=== PATIENT | female | born 1965 | race Caucasian/White ===

== ENCOUNTER 2017-06-20 23:29 | Emergency (ER) | payer OTHER ==
[~2017-06-20] VITALS: Ht 160 cm; Wt 59.4 kg
[2017-06-20] MEDS ORDERED: LIPITOR20 MG PO (23:32)
[2017-06-20] MEDS ORDERED: NOVOLOG MIX 70/33 ML SC (23:32)
[2017-06-20] MEDS ORDERED: CARBATROL200 MG PO (23:32)
[2017-06-20] MEDS ORDERED: DILTIAZEM60 MG PO (23:32)
[2017-06-20] MEDS ORDERED: NEURONTIN400 MG PO (23:33)
[2017-06-20] MEDS ORDERED: CYCLOBENZAPRINE10 MG PO (23:33)
[2017-06-20] MEDS ORDERED: LISINOPRIL5 MG PO (23:34)
[2017-06-20] MEDS ORDERED: IBUPROFEN400 MG PO (23:34)
[2017-06-20] MEDS ORDERED: KEPPRA500 MG PO (23:34)
[2017-06-20] MEDS ORDERED: LANTUS SOL100 UNIT/1 SC (23:34)
[2017-06-20] MEDS ORDERED: MAGNESIUM400 M1 PO (23:35)
[2017-06-20] MEDS ORDERED: EVISTA60 MG PO (23:35)
[2017-06-20] MEDS ORDERED: OMEPRAZOLE D/R20 MG PO (23:35)
[2017-06-20] MEDS ORDERED: PROMETHAZINE25 M1 PO (23:35)
[2017-06-20] MEDS ORDERED: MULTIVITAMINS1 EAC5 PO (23:35)
[2017-06-20] MEDS ORDERED: METFORMIN500 MG PO (23:35)
[2017-06-20] MEDS ORDERED: HEARTBURN RELI150 MG PO (23:36)
[2017-06-20] MEDS ORDERED: VISTARIL50 MG PO (23:36)
[2017-06-20] MEDS ORDERED: LACTULOSE10 GM/153 PO (23:36)
[2017-06-20] MEDS ORDERED: 24 HOUR ALLERG9.9 ML NAS (23:37)
[2017-06-20] MEDS ORDERED: VITAMIN C60 MG PO (23:37)
[2017-06-20] MEDS ORDERED: VITAMIN D350000 UNIT PO (23:37)
[2017-06-20] MEDS ORDERED: ATARAX,VISTARIL50 MG PO (23:38)
[2017-06-20] MEDS ORDERED: ZOLOFT50 MG PO (23:38)
[2017-06-20] MEDS ORDERED: FLOVENT DISKUS50 MCG INH (23:38)
[2017-06-20] MEDS ORDERED: COLACE100 MG PO (23:39)
[2017-06-20] MEDS ORDERED: PANTOPRAZOLE SO40 MG PO (23:39)
[2017-06-20] MEDS ORDERED: PROAIR HFA8.5 GM INH (23:39)
[2017-06-21 00:40] LABS: BASO # 0.1 10*3/uL (0.0-0.1); BASO % 0.9 % (0.0-1.0); EOS # 0.3 10*3/uL (0.0-0.4); EOS % 2.6 % (1.0-4.0); HEMATOCRIT 40.2 % (37.0-47.0); HEMOGLOBIN 14.3 g/dl (12.0-16.0); LYMPH % 45.1 % (27.0-41.0); MEAN CELL VOLUME 88.7 fl (81.0-99.0); MEAN CORPUSCULAR HGB 31.6 pg (27.0-31.0); MEAN CORPUSCULAR HGB CONC 35.6 g/dl (33.0-37.0); MEAN PLATELET VOLUME 10.4 fl (9.6-12.3); MONO # 0.6 10*3/uL (0.1-1.0); MONO % 5.1 % (3.0-9.0); NEUT # 5.1 10*3/uL (2.3-7.9); NEUT % 46.1 % (47.0-73.0); PLATELET COUNT AUTOMATED 264 10*3/uL (130-400); RED BLOOD COUNT 4.53 10*6/uL (4.10-5.10); RED CELL DISTRI WIDTH 13.5 % (0-14.5); WHITE BLOOD COUNT 11.1 10*3/uL (4.8-10.8)
[2017-06-21 00:51] LABS: INTERNATIONAL NORM RATIO 0.9 (2.0-3.5)
[2017-06-21 00:56] LABS: ALBUMIN 3.5 gm/dl (3.1-4.5); ALKALINE PHOSPHATASE 151 U/L (45-117); BUN 13 mg/dl (7-24); CHLORIDE 102 mmol/L (98-107); CREATININE 0.75 mg/dL (0.55-1.02); POTASSIUM 3.5 mmol/L (3.5-5.1); SODIUM 136 mmol/L (136-145); TOTAL PROTEIN 6.9 gm/dL (6.4-8.2)
[2017-06-21 00:58] LABS: BILIRUBIN NEGATIVE (NEGATIVE); BLOOD NEGATIVE (NEGATIVE); CLARITY CLEAR (CLEAR); COLOR YELLOW (YELLOW); GLUCOSE 3+ (NEGATIVE); KETONE NEGATIVE (NEGATIVE); LEUKO ESTERASE NEGATIVE (NEGATIVE); NITRITE NEGATIVE (NEGATIVE); SPECIFIC GRAVITY <= 1.005 (1.005-1.030)
[2017-06-21 01:01] LABS: TROPONIN I < 0.015 ng/ml (<0.045)
[2017-06-21 01:02] LABS: EPITHELIAL CELLS 30-35
[2017-06-21 01:04] LABS: SGOT/AST 21 IU/L (3-35)
[2017-06-21 01:07] LABS: SGPT/ALT 31 U/L (12-78)
== END 2017-06-21 03:17 | disposition home or self-care (01) ==
LOC: ED 23:29
PROVIDERS: Physician Assistant
DX: R51 Headache (principal); E11.9 Type 2 diabetes mellitus without complications; F17.200 Nicotine dependence, unspecified, uncomplicated; Z79.899 Other long term (current) drug therapy; Z79.4 Long term (current) use of insulin; Z88.8 Allergy status to other drugs, medicaments and biological substances

== ENCOUNTER 2017-07-10 02:27 | Inpatient (IN) | payer OTHER ==
[~2017-07-10] VITALS: Ht 160 cm; Wt 61.5 kg
[2017-07-10] VITALS (8 sets, daily range): BP systolic 113–170; BP diastolic 63–80
[~2017-07-10 02:27] MED LIST: 24 HOUR ALLERG9.9 ML NAS; ATARAX,VISTARIL50 MG PO; CARBATROL200 MG PO; COLACE100 MG PO; CYCLOBENZAPRINE10 MG PO; DILTIAZEM60 MG PO; EVISTA60 MG PO; FLOVENT DISKUS50 MCG INH; HEARTBURN RELI150 MG PO; IBUPROFEN400 MG PO; KEPPRA500 MG PO; LACTULOSE10 GM/153 PO; LANTUS SOL100 UNIT/1 SC; LIPITOR20 MG PO; LISINOPRIL5 MG PO; MAGNESIUM400 M1 PO; METFORMIN500 MG PO; MULTIVITAMINS1 EAC5 PO; NEURONTIN400 MG PO; NOVOLOG MIX 70/33 ML SC; OMEPRAZOLE D/R20 MG PO; PANTOPRAZOLE SO40 MG PO; PROAIR HFA8.5 GM INH; PROMETHAZINE25 M1 PO; VISTARIL50 MG PO; VITAMIN C60 MG PO; VITAMIN D350000 UNIT PO; ZOLOFT50 MG PO
[2017-07-10] MEDS ORDERED: CLONAZEPAM0.5 M2 PO (02:52)
[2017-07-10] MEDS ORDERED: BUSPIRONE HCL10 MG PO (02:52)
[2017-07-10] MEDS ORDERED: ARIPIPRAZOLE15 MG PO (03:01)
[2017-07-10] MEDS ORDERED: LORAZEPAM0.5 MG PO (03:02)
[2017-07-10] MEDS ORDERED: MIRTAZAPINE15 M2 PO (03:03)
[2017-07-10] MEDS ORDERED: NORCO 5-325 TA1 EACH PO (03:04)
[2017-07-10 03:22] LABS: BASO # 0.1 10*3/uL (0.0-0.1); BASO % 0.8 % (0.0-1.0); EOS # 0.2 10*3/uL (0.0-0.4); EOS % 1.6 % (1.0-4.0); HEMATOCRIT 39.2 % (37.0-47.0); HEMOGLOBIN 13.6 g/dl (12.0-16.0); LYMPH # 4.2 10*3/uL (1.3-4.4); LYMPH % 27.5 % (27.0-41.0); MEAN CELL VOLUME 89.5 fl (81.0-99.0); MEAN CORPUSCULAR HGB 31.1 pg (27.0-31.0); MEAN CORPUSCULAR HGB CONC 34.7 g/dl (33.0-37.0); MEAN PLATELET VOLUME 10.7 fl (9.6-12.3); MONO # 0.8 10*3/uL (0.1-1.0); MONO % 4.9 % (3.0-9.0); NEUT % 64.9 % (47.0-73.0); PLATELET COUNT AUTOMATED 287 10*3/uL (130-400); RED BLOOD COUNT 4.38 10*6/uL (4.10-5.10); RED CELL DISTRI WIDTH 13.9 % (0-14.5); WHITE BLOOD COUNT 15.3 10*3/uL (4.8-10.8)
[2017-07-10 03:32] LABS: BILIRUBIN NEGATIVE (NEGATIVE); BLOOD NEGATIVE (NEGATIVE); CLARITY CLEAR (CLEAR); COLOR YELLOW (YELLOW); GLUCOSE 3+ (NEGATIVE); KETONE NEGATIVE (NEGATIVE); LEUKO ESTERASE NEGATIVE (NEGATIVE); NITRITE NEGATIVE (NEGATIVE); SPECIFIC GRAVITY <= 1.005 (1.005-1.030); UROBILINOGEN 0.2 E.U./dl (0.2-1.0)
[2017-07-10 03:45] LABS: ALBUMIN 3.5 gm/dl (3.1-4.5); ALKALINE PHOSPHATASE 159 U/L (45-117); BUN 15 mg/dl (7-24); CHLORIDE 94 mmol/L (98-107); CREATININE 1.13 mg/dL (0.55-1.02); SGOT/AST 12 IU/L (3-35); SODIUM 130 mmol/L (136-145); TOTAL PROTEIN 7.1 gm/dL (6.4-8.2)
[2017-07-10 03:58] LABS: SGPT/ALT 26 U/L (12-78)
[2017-07-10 04:02] LABS: EPITHELIAL CELLS 25-30
[2017-07-10 04:03] LABS: WBC 0-2 wbc/hpf (0-5); YEAST TRACE
[2017-07-10 05:12] LABS: ABG BASE EXCESS -4.6 mmol/L (-2.0-2.0); ABG HCO3 20.3 mmol/l (22-26); ABG O2 SATURATION 93.6 % (95-97); ARTERIAL BLOOD GAS PCO2 37.3 mmHg (35-45); ARTERIAL BLOOD GAS PH 7.35 (7.35-7.45); ARTERIAL BLOOD GAS PO2 66.9 mmHg (80-90)
[2017-07-11] VITALS: BP 99/61
[2017-07-11 07:34] LABS: BASO # 0.1 10*3/uL (0.0-0.1); EOS # 0.3 10*3/uL (0.0-0.4); EOS % 3.2 % (1.0-4.0); HEMATOCRIT 37.6 % (37.0-47.0); HEMOGLOBIN 12.5 g/dl (12.0-16.0); LYMPH # 2.9 10*3/uL (1.3-4.4); LYMPH % 35.5 % (27.0-41.0); MEAN CORPUSCULAR HGB 31.1 pg (27.0-31.0); MEAN CORPUSCULAR HGB CONC 33.2 g/dl (33.0-37.0); MEAN PLATELET VOLUME 10.4 fl (9.6-12.3); MONO # 0.4 10*3/uL (0.1-1.0); MONO % 4.5 % (3.0-9.0); NEUT # 4.6 10*3/uL (2.3-7.9); NEUT % 55.4 % (47.0-73.0); PLATELET COUNT AUTOMATED 242 10*3/uL (130-400); RED BLOOD COUNT 4.02 10*6/uL (4.10-5.10); RED CELL DISTRI WIDTH 14.6 % (0-14.5); WHITE BLOOD COUNT 8.3 10*3/uL (4.8-10.8)
[2017-07-11 07:38] LABS: MEAN CELL VOLUME 93.5 fl (81.0-99.0)
[2017-07-11 07:49] LABS: BUN 9 mg/dl (7-24); CHLORIDE 107 mmol/L (98-107); CREATININE 0.69 mg/dL (0.55-1.02); POTASSIUM 3.7 mmol/L (3.5-5.1); SODIUM 139 mmol/L (136-145)
[2017-07-11 07:53] LABS: ACT PARTIAL THROMBO TIME 21.7 SECONDS (20.8-31.5); INTERNATIONAL NORM RATIO 0.9 (2.0-3.5)
[2017-07-11 07:55] LABS: ALKALINE PHOSPHATASE 127 U/L (45-117); BUN 9 mg/dl (7-24); CHLORIDE 106 mmol/L (98-107); CHOLESTEROL 254 mg/dL (<200); HDL CHOLESTEROL 30 mg/dl (40-60); PHOSPHOROUS 2.5 mg/dL (2.5-4.9); POTASSIUM 3.6 mmol/L (3.5-5.1); SGOT/AST 32 IU/L (3-35); SGPT/ALT 36 U/L (12-78); SODIUM 138 mmol/L (136-145); TOTAL PROTEIN 6.1 gm/dL (6.4-8.2)
[2017-07-11 07:59] LABS: THYROID STIM HORMONE (HS) 0.362 uIU/ml (0.358-4.75)
[2017-07-11 08:00] VITALS: BP 114/70
[2017-07-11 08:19] LABS: TRIGLYCERIDES 1053 mg/dl (<150)
[2017-07-11 09:23] LABS: VITAMIN D, 25-HYDROXY 38.4 ng/mL (30-100)
== END 2017-07-11 11:20 | disposition left against medical advice (07) | DRG 872 ==
LOC: ED 02:27 → EDHOLD 03:52 → 5E 04:04
PROVIDERS: Emergency Medicine Emergency Medical Services; Internal Medicine Nephrology; Student in an Organized Health Care Education/Training Program
DX: A41.9 Sepsis, unspecified organism (principal); E11.40 Type 2 diabetes mellitus with diabetic neuropathy, unspecified; E87.2 Acidosis; E87.8 Other disorders of electrolyte and fluid balance, not elsewhere classified; E87.1 Hypo-osmolality and hyponatremia; F31.9 Bipolar disorder, unspecified; F41.9 Anxiety disorder, unspecified; J02.9 Acute pharyngitis, unspecified; I10 Essential (primary) hypertension; R65.20 Severe sepsis without septic shock; E11.65 Type 2 diabetes mellitus with hyperglycemia; J30.9 Allergic rhinitis, unspecified; E55.9 Vitamin D deficiency, unspecified; K21.9 Gastro-esophageal reflux disease without esophagitis; G40.909 Epilepsy, unspecified, not intractable, without status epilepticus; Z85.3 Personal history of malignant neoplasm of breast; Z79.4 Long term (current) use of insulin; Z79.51 Long term (current) use of inhaled steroids; Z79.899 Other long term (current) drug therapy; Z90.13 Acquired absence of bilateral breasts and nipples; Z90.710 Acquired absence of both cervix and uterus; Z88.8 Allergy status to other drugs, medicaments and biological substances; Z80.0 Family history of malignant neoplasm of digestive organs

== ENCOUNTER 2017-08-28 18:15 | Inpatient (IN) | payer OTHER ==
[~2017-08-28] VITALS: Ht 160 cm; Wt 60.1 kg
--- NOTE | ~2017-08-28 | EKG ---
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 Electronically Signed On 08-29-2017 18:17:23 PDT by Chris Nolasco MD CM:EKGRPT:ELECTROCARDIOGRAM REPORT 06 16 FIORDALIZA WARREN MD EPIPHANY DRAFT REPORT FIORDALIZA WARREN MD
--- NOTE | ~2017-08-28 | PR ---
[place], [place] PROGRESS NOTE [id number] UNIT #: [id number] ROOM: 427 DOCTOR: PHILIP AVERY MD BIRTHDATE: [birth year] DOS: 08/30/2017 CARDIOLOGY PROGRESS NOTE SUBJECTIVE: The patient was seen in the Cardiology Department today 08/30/2017 just prior to her stress test. She is a 51-year-old woman who has a history of cigarette abuse and breast cancer treated with mastectomy and radiation to the left chest. She presents now with atypical chest discomfort and some soreness in her left anterior chest. She was hospitalized on 08/28/2017 and denies chest pain now. Serial troponin levels have been normal. PAST MEDICAL HISTORY: Includes: 1. Type 2 diabetes mellitus. 2. Breast cancer. 3. History of radiation and chemotherapy to the chest. 4. History of gastroesophageal reflux disease. 5. History of hypertension. 6. History of cigarette abuse. FAMILY HISTORY: Positive for heart disease in her father who she states had heart disease at a young age. Her mother of cancer. REVIEW OF SYSTEMS: The patient denies diplopia or loss of vision. She denies shortness of breath at rest, but does have some dyspnea on exertion. She denies nausea or vomiting. Denies focal weakness. She denies hemoptysis or hematemesis. She denies change in bowel or bladder habits. She does state that her anterior chest is sore, but this is a different sensation than what she has been experiencing lately. She denies any blood in her stools or urine. She denies any heat or cold intolerance. She denies any peripheral edema. She denies any skin rashes. The remainder of review of systems is negative except as noted above. SOCIAL HISTORY: The patient is a smoker. PHYSICAL EXAMINATION: GENERAL: The patient is a slender white female who is awake, alert, and oriented. VITAL SIGNS: Pulse is 73 and regular, blood pressure is 122/65. She is afebrile. NECK: Supple. She has no jugular distention. Carotids are full. I heard no bruits. She has no neck or supraclavicular masses and no thyromegaly. LUNGS: Respirations are unlabored. Her chest is clear to auscultation and percussion. She has no presacral edema or chest wall tenderness. HEART: Has a regular rhythm. She has a fourth heart sound, but no third heart sound. The PMI is not displaced. ABDOMEN: Benign. EXTREMITIES: Showed no edema. IMPRESSION: 1. Atypical chest discomfort. [place], [place] PROGRESS NOTE NAME: GALINA PEÑA UNIT #: [id number] ROOM: 427 DOCTOR: PHILIP AVERY MD BIRTHDATE: [birth year] 2. History of type 2 diabetes mellitus. 3. History of hypertension. 4. History of breast cancer treated with radiation therapy to the left chest along with chemotherapy and mastectomy. PLAN: Thus far, the patient shows no signs of acute coronary syndrome, but she does have chest pain and multiple risk factors. We will proceed with an exercise stress test. Further recommendations will depend upon the results of the stress test. We thank the hospitalist physicians for asking our advice regarding her care. PHILIP AVERY MD CM:PNTRANS [id number] PHILIP AVERY MD 08/31/17 0014 interface
--- NOTE | ~2017-08-28 | EKG ---
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
--- NOTE | ~2017-08-28 | EKG ---
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
--- NOTE | ~2017-08-28 | CON ---
[place], [place] REPORT OF CONSULTATION NAME: GALINA PEÑA UNIT #: [id number] ROOM: 427 DOCTOR: CARLITOS DOMINGUEZ MD BIRTHDATE: [birth year] DOS: 08/29/2017 CARDIOLOGY CONSULTATION REASON FOR CONSULTATION: Chest pain. CLINICAL HISTORY: The patient is a 51-year-old patient with history of hypertension, diabetes type 2, who presented to Emergency Room for chest pain. She was noted to have the chest pain since . There is intermittent grabbing type of pain in the midsternal area as well as left-side of the chest. Pain did radiate down her left arm. This pain is worse with exertion and relieves with rest. Pain lasts for about 4-5 minutes. She did have some associated shortness of breath and heart racing. She was also complaining of some left arm and hand numbness and tingling occasionally. No cough or hemoptysis. No fever and chills. No nausea, vomiting, or diarrhea. No PND or orthopnea. No headaches. No bladder or bowel symptoms. In the Emergency Room, she had a chest CTA, was negative for any pulmonary emboli, but she noted to have some coronary calcifications. She did have history of breast cancer with bilateral mastectomy. She was admitted to the hospital and Cardiology was consulted for further recommendations. During her hospitalization, she was noted to have sinus tachycardia and treated with Cardizem. REVIEW OF SYSTEMS: Review of the 10 systems negative except as described above. PAST MEDICAL HISTORY: 1. Hypertension. 2. Diabetes type 2. 3. Dyslipidemia. 4. History of breast cancer. 5. Bipolar disorder. 6. Anxiety and depression. SURGICAL HISTORY: History of bilateral mastectomies. ALLERGIES: Reviewed. HOME MEDICATIONS: Reviewed. SOCIAL HISTORY: The patient does not smoke or drink, does not use illicit drugs. PHYSICAL EXAMINATION: VITAL SIGNS: Blood pressure 107/67, pulse 79, and respiratory rate 20, weight 60.1 kilos, BMI 23. GENERAL: Alert, comfortable, in no acute distress. HEAD AND NECK: Neck is supple, no distended neck veins, no carotid bruit. CHEST: Nontender. LUNGS: A few scattered rhonchi, but good air entry bilaterally. HEART: Regular rhythm, no S3. Grade 1/6 systolic murmur. ABDOMEN: Benign, nontender. Bowel sounds normal. [place], [place] REPORT OF CONSULTATION NAME: GALINA PEÑA UNIT #: [id number] ROOM: 427 DOCTOR: ANGELICA FRANCOIS,CARLITOS BIRTHDATE: [birth year] EXTREMITIES: Showed no edema. Distal pulses are palpable. SKIN: Warm and dry. No cyanosis, no clubbing. RECTAL: Deferred. GENITOURINARY: Deferred. REVIEW OF THE DIAGNOSTIC TESTS: The patient had several EKGs. The initial EKG showed sinus rhythm, but there is some ST elevation noted in the anterolateral leads. Second EKG showed sinus rhythm with inferior nonspecific ST changes. Third EKG showed sinus tachycardia with prolonged QT interval. The cardiac troponins are negative x 2. TSH is normal. Hemoglobin 13.4, platelets 324,000, white count 13.1 thousand. Potassium 3.5, BUN 15, and creatinine 0.73. Her triglycerides are 1053, total cholesterol 254. IMPRESSION: 1. Chest pain, myocardial infarction ruled out. 2. Sinus tachycardia, resolved. 3. History of hypertension, currently pressures are borderline low. 4. Tobacco use. The patient counseled to quit smoking. 5. Anxiety and depression. 6. Dyslipidemia. 7. Diabetes. RECOMMENDATIONS: 1. The patient denies any chest pains. 2. Continue aspirin. 3. If the blood pressure tolerates, I would recommend add beta blockers. 4. Lexiscan stress test was scheduled for tomorrow. 5. I will check 2D echo for LV function and valvular function. 6. Her thyroid function tests are normal. Continue to monitor for any tachyarrhythmias. 7. The low cholesterol and low carb diet was discussed and she would benefit from aggressive lipid-lowering therapy. 8. There is no family at bedside at the time of my examination. CARLITOS DOMINGUEZ MD CM:CONSTR:REPORT OF CONSULTATION 00 08/30/172046 interface
[~2017-08-28 18:15] MED LIST changes: +ARIPIPRAZOLE15 MG PO; +BUSPIRONE HCL10 MG PO; +CLONAZEPAM0.5 M2 PO; +LORAZEPAM0.5 MG PO; +MIRTAZAPINE15 M2 PO; +NORCO 5-325 TA1 EACH PO
[2017-08-28 18:21] VITALS: BP 147/98
[2017-08-28] MEDS ORDERED: CARBAMAZEPINE200 M2 PO (18:30)
[2017-08-28] MEDS ORDERED: LIPITOR20 MG PO (18:30)
[2017-08-28] MEDS ORDERED: DILTIAZEM60 MG PO (18:31)
[2017-08-28] MEDS ORDERED: NEURONTIN800 MG PO (18:31)
[2017-08-28] MEDS ORDERED: CYCLOBENZAPRINE10 MG PO (18:31)
[2017-08-28] MEDS ORDERED: LANTUS SOL100 UNIT/1 SQ (18:32)
[2017-08-28] MEDS ORDERED: LEVETIRACETAM500 MG PO (18:32)
[2017-08-28] MEDS ORDERED: ZESTRIL,PRINIVIL5 MG PO (18:32)
[2017-08-28] MEDS ORDERED: MAGNESIUM250 M1 PO (18:32)
[2017-08-28] MEDS ORDERED: GLUCOPHAGE500 M1 PO (18:33)
[2017-08-28] MEDS ORDERED: METFORMIN HYDR500 MG PO (18:34)
[2017-08-28] MEDS ORDERED: PROMETHAZINE25 MG PO (18:34)
[2017-08-28] MEDS ORDERED: MULTIVITAMINS1 EAC5 PO (18:34)
[2017-08-28] MEDS ORDERED: OMEPRAZOLE20 M2 PO (18:34)
[2017-08-28] MEDS ORDERED: GOOD NEIGHBOR150 M1 PO (18:35)
[2017-08-28] MEDS ORDERED: RALOXIFENE HYDR60 MG PO (18:35)
[2017-08-28] MEDS ORDERED: ARNUITY ELLIPT50 MCG INH (18:36)
[2017-08-28] MEDS ORDERED: VITAMIN C250 M2 PO (18:36)
[2017-08-28] MEDS ORDERED: GENERLAC10 GM/15 M PO (18:36)
[2017-08-28] MEDS ORDERED: SERTRALINE HYDR50 MG PO (18:37)
[2017-08-28] MEDS ORDERED: HYDROXYZINE PAM50 MG PO (18:37)
[2017-08-28] MEDS ORDERED: VITAMIN D22000 UNIT PO (18:37)
[2017-08-28] MEDS ORDERED: FLOVENT DISKUS50 MCG INH (18:38)
[2017-08-28] MEDS ORDERED: DOC-Q-LACE100 MG PO (18:38)
[2017-08-28] MEDS ORDERED: PROAIR HFA8.5 GM INH (18:39)
[2017-08-28] MEDS ORDERED: PROTONIX40 MG PO (18:39)
[2017-08-28] MEDS ORDERED: BUSPAR5 MG PO (18:40)
[2017-08-28] MEDS ORDERED: ABILIFY15 MG PO (18:40)
[2017-08-28] MEDS ORDERED: CLONAZEPAM0.5 M1 PO (18:41)
[2017-08-28] MEDS ORDERED: NORCO 10-325 T1 EACH PO (18:42)
[2017-08-28] MEDS ORDERED: HUMULIN 70/30 703 M1 SQ (18:43)
[2017-08-28 18:51] LABS: BASO # 0.1 10*3/uL (0.0-0.1); BASO % 0.7 % (0.0-1.0); EOS # 0.1 10*3/uL (0.0-0.4); EOS % 0.9 % (1.0-4.0); HEMATOCRIT 41.8 % (37.0-47.0); HEMOGLOBIN 14.1 g/dl (12.0-16.0); LYMPH # 3.9 10*3/uL (1.3-4.4); MEAN CELL VOLUME 93.7 fl (81.0-99.0); MEAN CORPUSCULAR HGB 31.6 pg (27.0-31.0); MEAN CORPUSCULAR HGB CONC 33.7 g/dl (33.0-37.0); MEAN PLATELET VOLUME 9.8 fl (9.6-12.3); MONO # 0.7 10*3/uL (0.1-1.0); NEUT # 8.9 10*3/uL (2.3-7.9); PLATELET COUNT AUTOMATED 337 10*3/uL (130-400); RED BLOOD COUNT 4.46 10*6/uL (4.10-5.10); RED CELL DISTRI WIDTH 13.2 % (0-14.5); WHITE BLOOD COUNT 13.7 10*3/uL (4.8-10.8)
[2017-08-28 19:02] LABS: ACT PARTIAL THROMBO TIME 22.8 SECONDS (20.8-31.5); INTERNATIONAL NORM RATIO 0.9 (2.0-3.5)
[2017-08-28 19:09] LABS: ALBUMIN 4.2 gm/dl (3.1-4.5); ALKALINE PHOSPHATASE 132 U/L (45-117); BUN 19 mg/dl (7-24); CHLORIDE 108 mmol/L (98-107); CREATININE 0.91 mg/dL (0.55-1.02); POTASSIUM 3.7 mmol/L (3.5-5.1); SGOT/AST 11 IU/L (3-35); SGPT/ALT 33 U/L (12-78); SODIUM 138 mmol/L (136-145); TOTAL PROTEIN 7.9 gm/dL (6.4-8.2)
[2017-08-28 19:12] LABS: TROPONIN I < 0.015 ng/ml (<0.045)
[2017-08-28 19:22] VITALS: BP 124/82
[2017-08-28 19:58] VITALS: BP 131/76
[2017-08-28 21:16] VITALS: BP 98/61
[2017-08-28 21:46] LABS: BILIRUBIN NEGATIVE (NEGATIVE); BLOOD NEGATIVE (NEGATIVE); CLARITY SL CLOUDY (CLEAR); COLOR YELLOW (YELLOW); GLUCOSE NEGATIVE (NEGATIVE); KETONE TRACE (NEGATIVE); LEUKO ESTERASE NEGATIVE (NEGATIVE); NITRITE NEGATIVE (NEGATIVE); PH 5.5 (5.0-9.0); UROBILINOGEN 0.2 E.U./dl (0.2-1.0)
[2017-08-28 21:47] VITALS: BP 132/76
[2017-08-28 21:52] LABS: EPITHELIAL CELLS TNTC
[2017-08-28 22:10] VITALS: BP 140/83
[2017-08-29] VITALS: BP 141/78
[2017-08-29 06:53] LABS: HEMATOCRIT 40.7 % (37.0-47.0); HEMOGLOBIN 13.4 g/dl (12.0-16.0); MEAN CELL VOLUME 96.2 fl (81.0-99.0); MEAN CORPUSCULAR HGB 31.7 pg (27.0-31.0); MEAN CORPUSCULAR HGB CONC 32.9 g/dl (33.0-37.0); MEAN PLATELET VOLUME 9.7 fl (9.6-12.3); PLATELET COUNT AUTOMATED 324 10*3/uL (130-400); RED BLOOD COUNT 4.23 10*6/uL (4.10-5.10); RED CELL DISTRI WIDTH 13.2 % (0-14.5); WHITE BLOOD COUNT 13.1 10*3/uL (4.8-10.8)
[2017-08-29 07:12] LABS: ATYPICAL LYMPHS 1 % (0-0); BASOPHILS 3 % (0-1); PLATELET SUFFICIENCY NORMAL (NORMAL); TOTAL CELLS COUNTED 100 #CELLS
[2017-08-29 07:28] LABS: BUN 15 mg/dl (7-24); CHLORIDE 108 mmol/L (98-107); POTASSIUM 3.5 mmol/L (3.5-5.1); SODIUM 140 mmol/L (136-145)
[2017-08-29 07:30] LABS: CREATININE 0.73 mg/dL (0.55-1.02); PHOSPHOROUS 3.3 mg/dL (2.5-4.9)
[2017-08-29 08:00] VITALS: BP 107/67
[2017-08-29] MEDS ORDERED: 'KLONOPIN0.5 MG PO (09:19)
[2017-08-29 12:00] VITALS: BP 117/67
[2017-08-29 16:00] VITALS: BP 111/63
[2017-08-29 20:00] VITALS: BP 121/57
[2017-08-30] VITALS: BP 122/65
[2017-08-30 06:11] LABS: BASO # 0.1 10*3/uL (0.0-0.1); EOS # 0.4 10*3/uL (0.0-0.4); HEMATOCRIT 41.8 % (37.0-47.0); HEMOGLOBIN 13.7 g/dl (12.0-16.0); LYMPH # 4.5 10*3/uL (1.3-4.4); LYMPH % 37.3 % (27.0-41.0); MEAN CELL VOLUME 96.5 fl (81.0-99.0); MEAN CORPUSCULAR HGB 31.6 pg (27.0-31.0); MEAN CORPUSCULAR HGB CONC 32.8 g/dl (33.0-37.0); MEAN PLATELET VOLUME 9.7 fl (9.6-12.3); MONO # 0.9 10*3/uL (0.1-1.0); MONO % 7.3 % (3.0-9.0); NEUT # 6.2 10*3/uL (2.3-7.9); NEUT % 51.1 % (47.0-73.0); PLATELET COUNT AUTOMATED 300 10*3/uL (130-400); RED BLOOD COUNT 4.33 10*6/uL (4.10-5.10); RED CELL DISTRI WIDTH 12.9 % (0-14.5); WHITE BLOOD COUNT 12.1 10*3/uL (4.8-10.8)
[2017-08-30 06:18] LABS: BUN 11 mg/dl (7-24); CHLORIDE 105 mmol/L (98-107); CREATININE 0.68 mg/dL (0.55-1.02); SODIUM 139 mmol/L (136-145)
[2017-08-30 10:40] VITALS: BP 118/89
[2017-08-30 12:00] VITALS: BP 129/84
[2017-08-30] MEDS ORDERED: LISINOPRIL10 M1 PO (14:59)
[2017-10-01] MEDS ORDERED: FLONASE ALLERG9.9 ML NAS (09:43)
[2017-10-01] MEDS ORDERED: CLARITIN10 MG PO (09:43)
[2017-10-01] MEDS ORDERED: PREDNISONE10 MG PO (09:43)
== END 2017-08-30 15:40 | disposition home or self-care (01) | DRG 303 ==
LOC: ED 18:15 → EDHOLD 21:28 → 4E 21:28
PROVIDERS: Emergency Medicine; Internal Medicine; Student in an Organized Health Care Education/Training Program
PROC: 4A02XM4 Measurement of Cardiac Total Activity, External Approach (ICD-10-PCS; principal; 2017-08-30)
DX: I25.118 Atherosclerotic heart disease of native coronary artery with other forms of angina pectoris (principal); E87.8 Other disorders of electrolyte and fluid balance, not elsewhere classified; R65.10 Systemic inflammatory response syndrome (SIRS) of non-infectious origin without acute organ dysfunction; E11.65 Type 2 diabetes mellitus with hyperglycemia; I10 Essential (primary) hypertension; K21.9 Gastro-esophageal reflux disease without esophagitis; F41.9 Anxiety disorder, unspecified; M79.2 Neuralgia and neuritis, unspecified; J30.9 Allergic rhinitis, unspecified; M54.2 Cervicalgia; E78.5 Hyperlipidemia, unspecified; E55.9 Vitamin D deficiency, unspecified; F31.9 Bipolar disorder, unspecified; R00.0 Tachycardia, unspecified; G40.909 Epilepsy, unspecified, not intractable, without status epilepticus; E78.00 Pure hypercholesterolemia, unspecified; Z88.8 Allergy status to other drugs, medicaments and biological substances; Z79.4 Long term (current) use of insulin; Z79.899 Other long term (current) drug therapy; Z79.84 Long term (current) use of oral hypoglycemic drugs; Z92.21 Personal history of antineoplastic chemotherapy; Z92.3 Personal history of irradiation; Z90.710 Acquired absence of both cervix and uterus; Z90.13 Acquired absence of bilateral breasts and nipples; Z85.3 Personal history of malignant neoplasm of breast; Z80.0 Family history of malignant neoplasm of digestive organs; Z78.9 Other specified health status; Z71.6 Tobacco abuse counseling; Z72.0 Tobacco use

== ENCOUNTER 2017-10-26 15:00 | Emergency (ER) | payer OTHER ==
[~2017-10-26] VITALS: Ht 160 cm; Wt 58.5 kg
[~2017-10-26 15:00] MED LIST changes: +'KLONOPIN0.5 MG PO; +ABILIFY15 MG PO; +ARNUITY ELLIPT50 MCG INH; +BUSPAR5 MG PO; +CARBAMAZEPINE200 M2 PO; +CLARITIN10 MG PO; +CLONAZEPAM0.5 M1 PO; +DOC-Q-LACE100 MG PO; +FLONASE ALLERG9.9 ML NAS; +GENERLAC10 GM/15 M PO; +GLUCOPHAGE500 M1 PO; +GOOD NEIGHBOR150 M1 PO; +HUMULIN 70/30 703 M1 SQ; +HYDROXYZINE PAM50 MG PO; +LANTUS SOL100 UNIT/1 SQ; +LEVETIRACETAM500 MG PO; +LISINOPRIL10 M1 PO; +MAGNESIUM250 M1 PO; +METFORMIN HYDR500 MG PO; +NEURONTIN800 MG PO; +NORCO 10-325 T1 EACH PO; +OMEPRAZOLE20 M2 PO; +PREDNISONE10 MG PO; +PROMETHAZINE25 MG PO; +PROTONIX40 MG PO; +RALOXIFENE HYDR60 MG PO; +SERTRALINE HYDR50 MG PO; +VITAMIN C250 M2 PO; +VITAMIN D22000 UNIT PO; +ZESTRIL,PRINIVIL5 MG PO
[2017-10-26] MEDS ORDERED: IBUPROFEN600 MG PO (17:05)
== END 2017-10-26 17:15 | disposition home or self-care (01) ==
LOC: ED 15:00
DX: S92.424A Nondisplaced fracture of distal phalanx of right great toe, initial encounter for closed fracture (principal); F17.200 Nicotine dependence, unspecified, uncomplicated; Z88.8 Allergy status to other drugs, medicaments and biological substances; Z91.030 Bee allergy status; Z79.899 Other long term (current) drug therapy; Z90.710 Acquired absence of both cervix and uterus; Z90.49 Acquired absence of other specified parts of digestive tract; W10.9XXA Fall (on) (from) unspecified stairs and steps, initial encounter; Y93.89 Activity, other specified; Y92.89 Other specified places as the place of occurrence of the external cause; Y99.8 Other external cause status

== ENCOUNTER 2017-11-11 13:15 | Emergency (ER) | payer OTHER ==
[~2017-11-11] VITALS: Ht 160 cm; Wt 54.4 kg
--- NOTE | ~2017-11-11 | EKG ---
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
[~2017-11-11 13:15] MED LIST changes: +IBUPROFEN600 MG PO
[2017-11-11] MEDS ORDERED: NORCO 5-325 TA1 EACH PO (14:16)
== END 2017-11-11 14:35 | disposition home or self-care (01) ==
LOC: ED 13:15
DX: S92.404D Nondisplaced unspecified fracture of right great toe, subsequent encounter for fracture with routine healing (principal); F17.200 Nicotine dependence, unspecified, uncomplicated; Z76.0 Encounter for issue of repeat prescription; Z79.899 Other long term (current) drug therapy; Z91.030 Bee allergy status; Z88.8 Allergy status to other drugs, medicaments and biological substances; X58.XXXD Exposure to other specified factors, subsequent encounter

== ENCOUNTER 2018-02-10 | Emergency (ER) | payer OTHER ==
[2018-02-10] MEDS ORDERED: MAPAP325 MG PO (21:40)
[2018-04-21] MEDS ORDERED: DIAZEPAM10 M1 PO (00:42)
[2018-04-21] MEDS ORDERED: TRAZODONE100 MG PO (00:43)
[2018-04-21] MEDS ORDERED: DOCUSATE SOD100 MG PO (00:43)
[2018-04-21] MEDS ORDERED: SUMATRIPTAN SUC25 M1 PO (00:44)
[2018-04-21] MEDS ORDERED: PROAIR HFA8.5 GM INH (00:45)
[2018-04-21] MEDS ORDERED: BUSPAR15 MG PO (00:45)
[2018-04-21] MEDS ORDERED: DOXEPIN HCL25 MG PO (00:47)
[2018-04-21] MEDS ORDERED: SERTRALINE HYD100 MG PO (00:48)
[2018-04-21] MEDS ORDERED: TOPIRAMATE50 M2 PO (00:53)
[2018-04-21] MEDS ORDERED: ARIPIPRAZOLE30 MG PO (00:54)
[2018-04-21] MEDS ORDERED: VITAMIN D32000 UNI1 PO (00:55)
[2018-04-21] MEDS ORDERED: TRESIBA FL100 UNIT/1 SQ (00:56)
[2018-04-21] MEDS ORDERED: ANORO ELLIPTA1 EACH INH (00:57)
[2018-04-26] MEDS ORDERED: ASPIRIN ADULT L81 M2 PO (10:53)
[2018-04-26] MEDS ORDERED: METOPROLOL SUCC25 M2 PO (10:53)
[2018-04-26] MEDS ORDERED: IMDUR SA30 MG PO (10:53)
[2018-04-26] MEDS ORDERED: ZITHROMAX500 MG PO (10:53)
[2018-05-26] MEDS ORDERED: NEURONTIN300 MG PO (01:32)
[2018-05-26] MEDS ORDERED: CALCIUM + D3 E1 EACH PO (02:02)
[2018-05-28] MEDS ORDERED: VIBRAMYCIN100 MG PO (11:27)
[2018-05-28] MEDS ORDERED: PREDNISONE10 MG PO (11:27)
[2018-05-28] MEDS ORDERED: NEBULIZER DEVI (11:27)
[2018-05-28] MEDS ORDERED: Ipratropium Brom3 ML NEB (11:28)
[2018-08-22] MEDS ORDERED: MELATONIN 5 MG1 EAC1 PO (22:08)
[2018-08-22] MEDS ORDERED: KEPPRA500 MG PO (22:09)
[2018-08-22] MEDS ORDERED: DOXYCYCLINE HYC20 MG PO (22:10)
[2018-08-24] MEDS ORDERED: METFORMIN ER500 MG PO (09:37)
== END 2018-02-10 22:05 | disposition home or self-care (01) ==
DX: M25.571 Pain in right ankle and joints of right foot (principal); I25.10 Atherosclerotic heart disease of native coronary artery without angina pectoris; E11.9 Type 2 diabetes mellitus without complications; K21.9 Gastro-esophageal reflux disease without esophagitis; I10 Essential (primary) hypertension; F17.200 Nicotine dependence, unspecified, uncomplicated; Z88.8 Allergy status to other drugs, medicaments and biological substances; Z79.899 Other long term (current) drug therapy; Z79.84 Long term (current) use of oral hypoglycemic drugs; Z90.710 Acquired absence of both cervix and uterus; Z90.49 Acquired absence of other specified parts of digestive tract; Z85.3 Personal history of malignant neoplasm of breast

== ENCOUNTER 2018-03-04 10:18 | Emergency (ER) | payer OTHER ==
[~2018-03-04] VITALS: Wt 61.7 kg
[~2018-03-04 10:18] MED LIST changes: +MAPAP325 MG PO
[2018-04-21] MEDS ORDERED: DIAZEPAM10 M1 PO (00:42)
[2018-04-21] MEDS ORDERED: TRAZODONE100 MG PO (00:43)
[2018-04-21] MEDS ORDERED: DOCUSATE SOD100 MG PO (00:43)
[2018-04-21] MEDS ORDERED: SUMATRIPTAN SUC25 M1 PO (00:44)
[2018-04-21] MEDS ORDERED: BUSPAR15 MG PO (00:45)
[2018-04-21] MEDS ORDERED: PROAIR HFA8.5 GM INH (00:45)
[2018-04-21] MEDS ORDERED: DOXEPIN HCL25 MG PO (00:47)
[2018-04-21] MEDS ORDERED: SERTRALINE HYD100 MG PO (00:48)
[2018-04-21] MEDS ORDERED: TOPIRAMATE50 M2 PO (00:53)
[2018-04-21] MEDS ORDERED: ARIPIPRAZOLE30 MG PO (00:54)
[2018-04-21] MEDS ORDERED: VITAMIN D32000 UNI1 PO (00:55)
[2018-04-21] MEDS ORDERED: TRESIBA FL100 UNIT/1 SQ (00:56)
[2018-04-21] MEDS ORDERED: ANORO ELLIPTA1 EACH INH (00:57)
[2018-04-26] MEDS ORDERED: IMDUR SA30 MG PO (10:53)
[2018-04-26] MEDS ORDERED: ZITHROMAX500 MG PO (10:53)
[2018-04-26] MEDS ORDERED: METOPROLOL SUCC25 M2 PO (10:53)
[2018-04-26] MEDS ORDERED: ASPIRIN ADULT L81 M2 PO (10:53)
== END 2018-03-04 12:50 | disposition home or self-care (01) ==
LOC: ED 10:18
DX: S00.83XA Contusion of other part of head, initial encounter (principal); S00.03XA Contusion of scalp, initial encounter; I25.10 Atherosclerotic heart disease of native coronary artery without angina pectoris; E11.9 Type 2 diabetes mellitus without complications; K21.9 Gastro-esophageal reflux disease without esophagitis; I10 Essential (primary) hypertension; F17.200 Nicotine dependence, unspecified, uncomplicated; Z90.710 Acquired absence of both cervix and uterus; Z91.030 Bee allergy status; Z88.8 Allergy status to other drugs, medicaments and biological substances; Z79.84 Long term (current) use of oral hypoglycemic drugs; Z79.899 Other long term (current) drug therapy; W01.10XA Fall on same level from slipping, tripping and stumbling with subsequent striking against unspecified object, initial encounter; Y93.89 Activity, other specified; Y92.89 Other specified places as the place of occurrence of the external cause; Y99.8 Other external cause status

== ENCOUNTER 2018-07-28 16:38 | Emergency (ER) | payer OTHER ==
[~2018-07-28] VITALS: Ht 160 cm; Wt 69.4 kg
[~2018-07-28 16:38] MED LIST changes: +ANORO ELLIPTA1 EACH INH; +ARIPIPRAZOLE30 MG PO; +ASPIRIN ADULT L81 M2 PO; +BUSPAR15 MG PO; +CALCIUM + D3 E1 EACH PO; +DIAZEPAM10 M1 PO; +DOCUSATE SOD100 MG PO; +DOXEPIN HCL25 MG PO; +IMDUR SA30 MG PO; +Ipratropium Brom3 ML NEB; +METOPROLOL SUCC25 M2 PO; +NEBULIZER DEVI; +NEURONTIN300 MG PO; +SERTRALINE HYD100 MG PO; +SUMATRIPTAN SUC25 M1 PO; +TOPIRAMATE50 M2 PO; +TRAZODONE100 MG PO; +TRESIBA FL100 UNIT/1 SQ; +VIBRAMYCIN100 MG PO; +VITAMIN D32000 UNI1 PO; +ZITHROMAX500 MG PO
[2018-07-28] MEDS ORDERED: IMITREX25 M1 PO (16:44)
[2018-08-22] MEDS ORDERED: MELATONIN 5 MG1 EAC1 PO (22:08)
[2018-08-22] MEDS ORDERED: KEPPRA500 MG PO (22:09)
[2018-08-22] MEDS ORDERED: DOXYCYCLINE HYC20 MG PO (22:10)
[2018-08-24] MEDS ORDERED: METFORMIN ER500 MG PO (09:37)
[2018-09-28] MEDS ORDERED: VOLTAREN100 GM T (16:26)
[2018-09-28] MEDS ORDERED: NEURONTIN300 MG PO (16:34)
[2018-10-01] MEDS ORDERED: VANCOMYCIN HCL125 MG PO (14:57)
[2018-10-01] MEDS ORDERED: PANTOPRAZOLE SO40 MG PO (14:57)
== END 2018-07-28 19:43 | disposition home or self-care (01) ==
LOC: ED 16:38
DX: G43.909 Migraine, unspecified, not intractable, without status migrainosus (principal); R11.2 Nausea with vomiting, unspecified; F17.200 Nicotine dependence, unspecified, uncomplicated; Z91.030 Bee allergy status; Z88.8 Allergy status to other drugs, medicaments and biological substances; Z79.899 Other long term (current) drug therapy

== ENCOUNTER 2018-08-04 14:23 | Emergency (ER) | payer OTHER ==
[~2018-08-04] VITALS: Ht 154.9 cm; Wt 81.6 kg
--- NOTE | ~2018-08-04 | EKG ---
[place], [place] ELECTROCARDIOGRAM REPORT NAME: GALINA PEÑA UNIT #: [id number] ROOM: DOCTOR: EPIPHANY DRAFT REPORT BIRTHDATE: [birth year] [facility] Test Date: 2018-08-04 Test Time: 14:26:27 Pat Name: GALINA PEÑA Department: ER Room: Gender: F [employer] Members[employer] Advisors: : 1965 Requested By: CYNDI MARIA Order Number: [id number] Reading MD: Marcio Crews MD Measurements Intervals [place] Rate: 88 P: 51 OK: 108 QRS: 42 QRSD: 143 T: 6 QT: 336 QTc: 407 Interpretive Statements Sinus rhythm Short [place] interval Poor R wave progression Compared to ECG 05/25/2018 19:37:20 Short [place] interval now present Myocardial infarct finding now present Sinus tachycardia no longer present Left ventricular hypertrophy no longer present Prolonged QT interval no longer present Electronically Signed On 08-10-2018 6:56:12 PDT by Marcio Crews MD CM:EKGRPT:ELECTROCARDIOGRAM REPORT 1426 0656 CYNDI BRANCH DRAFT REPORT CYNDI MARIA DO
--- NOTE | ~2018-08-04 | EKG ---
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: Ирина Santos : 1965 Requested By: CYNDI MARIA Order Number: [id number] Reading MD: Marcio Crews MD Measurements Intervals [place] Rate: 76 P: 49 KS: 106 QRS: 32 QRSD: 77 T: 17 QT: 385 QTc: 433 Interpretive Statements Sinus rhythm Short [place] interval Compared to ECG 05/25/2018 19:37:20 Short [place] interval now present Sinus tachycardia no longer present Left ventricular hypertrophy no longer present Prolonged QT interval no longer present Electronically Signed On 08-10-2018 6:57:11 PDT by Marcio Crews MD CM:EKGRPT:ELECTROCARDIOGRAM REPORT 1710 [id number] CYNDI BRANCH DRAFT REPORT CYNDI MARIA DO
[~2018-08-04 14:23] MED LIST changes: +IMITREX25 M1 PO
[2018-08-04 14:44] LABS: BASO # 0.1 10*3/uL (0.0-0.1); EOS # 0.5 10*3/uL (0.0-0.4); EOS % 3.5 % (1.0-4.0); HEMATOCRIT 39.5 % (37.0-47.0); HEMOGLOBIN 13.4 g/dl (12.0-16.0); LYMPH # 4.2 10*3/uL (1.3-4.4); LYMPH % 29.7 % (27.0-41.0); MEAN CELL VOLUME 95.4 fl (81.0-99.0); MEAN CORPUSCULAR HGB 32.4 pg (27.0-31.0); MEAN CORPUSCULAR HGB CONC 33.9 g/dl (33.0-37.0); MEAN PLATELET VOLUME 9.4 fl (9.6-12.3); MONO # 0.8 10*3/uL (0.1-1.0); MONO % 5.4 % (3.0-9.0); NEUT # 8.5 10*3/uL (2.3-7.9); PLATELET COUNT AUTOMATED 306 10*3/uL (130-400); RED BLOOD COUNT 4.14 10*6/uL (4.10-5.10); WHITE BLOOD COUNT 14.2 10*3/uL (4.8-10.8)
[2018-08-04 14:58] LABS: ACT PARTIAL THROMBO TIME 25.4 SECONDS (20.0-32.1); INTERNATIONAL NORM RATIO 0.9 (2.0-3.5)
[2018-08-04 15:02] LABS: ALBUMIN 3.8 gm/dl (3.1-4.5); ALKALINE PHOSPHATASE 96 U/L (45-117); BUN 15 mg/dl (7-24); CHLORIDE 103 mmol/L (98-107); CREATININE 1.24 mg/dL (0.55-1.02); POTASSIUM 4.1 mmol/L (3.5-5.1); SGOT/AST 17 IU/L (3-35); SGPT/ALT 43 U/L (12-78); SODIUM 135 mmol/L (136-145); TOTAL PROTEIN 7.1 gm/dL (6.4-8.2)
[2018-08-04 15:04] LABS: TROPONIN I < 0.015 ng/ml (<0.045)
[2018-08-04 16:24] LABS: BILIRUBIN NEGATIVE (NEGATIVE); BLOOD NEGATIVE (NEGATIVE); CLARITY CLEAR (CLEAR); COLOR YELLOW (YELLOW); GLUCOSE 1+ (NEGATIVE); KETONE NEGATIVE (NEGATIVE); LEUKO ESTERASE TRACE (NEGATIVE); NITRITE NEGATIVE (NEGATIVE); UROBILINOGEN 0.2 E.U./dl (0.2-1.0)
[2018-08-04 16:41] LABS: BACTERIA TRACE
[2018-08-22] MEDS ORDERED: MELATONIN 5 MG1 EAC1 PO (22:08)
[2018-08-22] MEDS ORDERED: KEPPRA500 MG PO (22:09)
[2018-08-22] MEDS ORDERED: DOXYCYCLINE HYC20 MG PO (22:10)
[2018-08-24] MEDS ORDERED: METFORMIN ER500 MG PO (09:37)
[2018-09-28] MEDS ORDERED: VOLTAREN100 GM T (16:26)
[2018-09-28] MEDS ORDERED: NEURONTIN300 MG PO (16:34)
[2018-10-01] MEDS ORDERED: PANTOPRAZOLE SO40 MG PO (14:57)
[2018-10-01] MEDS ORDERED: VANCOMYCIN HCL125 MG PO (14:57)
== END 2018-08-04 19:30 | disposition home or self-care (01) ==
LOC: ED 14:23
PROVIDERS: Emergency Medicine; Nurse Practitioner Family
DX: S20.212A Contusion of left front wall of thorax, initial encounter (principal); S50.12XA Contusion of left forearm, initial encounter; R11.2 Nausea with vomiting, unspecified; G43.909 Migraine, unspecified, not intractable, without status migrainosus; I25.10 Atherosclerotic heart disease of native coronary artery without angina pectoris; J44.9 Chronic obstructive pulmonary disease, unspecified; E11.9 Type 2 diabetes mellitus without complications; K21.9 Gastro-esophageal reflux disease without esophagitis; I10 Essential (primary) hypertension; E78.1 Pure hyperglyceridemia; G40.909 Epilepsy, unspecified, not intractable, without status epilepticus; F17.200 Nicotine dependence, unspecified, uncomplicated; Z91.030 Bee allergy status; Z88.8 Allergy status to other drugs, medicaments and biological substances; Z79.899 Other long term (current) drug therapy; Z79.82 Long term (current) use of aspirin; Z79.4 Long term (current) use of insulin; Z90.710 Acquired absence of both cervix and uterus; Z90.49 Acquired absence of other specified parts of digestive tract; W19.XXXA Unspecified fall, initial encounter; Y93.89 Activity, other specified; Y92.89 Other specified places as the place of occurrence of the external cause; Y99.8 Other external cause status

== ENCOUNTER 2018-09-06 13:04 | Emergency (ER) | payer OTHER ==
[~2018-09-06 13:04] MED LIST changes: +DOXYCYCLINE HYC20 MG PO; +MELATONIN 5 MG1 EAC1 PO; +METFORMIN ER500 MG PO
[2018-09-06 15:13] LABS: BASO # 0.1 10*3/uL (0.0-0.1); BASO % 0.3 % (0.0-1.0); EOS # 0.1 10*3/uL (0.0-0.4); EOS % 0.6 % (1.0-4.0); HEMATOCRIT 38.9 % (37.0-47.0); HEMOGLOBIN 12.8 g/dl (12.0-16.0); LYMPH # 3.6 10*3/uL (1.3-4.4); LYMPH % 22.4 % (27.0-41.0); MEAN CORPUSCULAR HGB 32.2 pg (27.0-31.0); MEAN CORPUSCULAR HGB CONC 32.9 g/dl (33.0-37.0); MEAN PLATELET VOLUME 9.9 fl (9.6-12.3); MONO # 0.8 10*3/uL (0.1-1.0); MONO % 5.2 % (3.0-9.0); NEUT # 11.3 10*3/uL (2.3-7.9); NEUT % 70.9 % (47.0-73.0); PLATELET COUNT AUTOMATED 278 10*3/uL (130-400); RED BLOOD COUNT 3.97 10*6/uL (4.10-5.10); RED CELL DISTRI WIDTH 13.3 % (0-14.5); WHITE BLOOD COUNT 15.9 10*3/uL (4.8-10.8)
[2018-09-06 15:27] LABS: ALBUMIN 3.4 gm/dl (3.1-4.5); CREATININE 1.25 mg/dL (0.55-1.02); POTASSIUM 4.2 mmol/L (3.5-5.1); TOTAL PROTEIN 6.8 gm/dL (6.4-8.2)
[2018-09-06 16:56] LABS: BILIRUBIN NEGATIVE (NEGATIVE); BLOOD TRACE-INTACT (NEGATIVE); CLARITY SL CLOUDY (CLEAR); COLOR YELLOW (YELLOW); GLUCOSE NEGATIVE (NEGATIVE); KETONE NEGATIVE (NEGATIVE); LEUKO ESTERASE TRACE (NEGATIVE); NITRITE NEGATIVE (NEGATIVE); SPECIFIC GRAVITY <= 1.005 (1.005-1.030); UROBILINOGEN 0.2 E.U./dl (0.2-1.0)
[2018-09-06 17:07] LABS: BACTERIA 3+; EPITHELIAL CELLS 0-2
[2018-09-06 17:08] LABS: RBC 0-2 rbc/hpf (0-2)
== END 2018-09-06 19:22 | disposition home or self-care (01) ==
LOC: ED 13:04
PROVIDERS: Emergency Medicine
DX: E86.0 Dehydration (principal); R19.7 Diarrhea, unspecified; R11.10 Vomiting, unspecified; R06.02 Shortness of breath; R53.1 Weakness; R10.9 Unspecified abdominal pain; I25.10 Atherosclerotic heart disease of native coronary artery without angina pectoris; K21.9 Gastro-esophageal reflux disease without esophagitis; J44.9 Chronic obstructive pulmonary disease, unspecified; I12.9 Hypertensive chronic kidney disease with stage 1 through stage 4 chronic kidney disease, or unspecified chronic kidney disease; E11.22 Type 2 diabetes mellitus with diabetic chronic kidney disease; N18.3 Chronic kidney disease, stage 3 (moderate); G43.909 Migraine, unspecified, not intractable, without status migrainosus; G40.909 Epilepsy, unspecified, not intractable, without status epilepticus; Z79.4 Long term (current) use of insulin; Z88.8 Allergy status to other drugs, medicaments and biological substances; Z79.899 Other long term (current) drug therapy

== ENCOUNTER 2018-09-08 16:50 | Inpatient (IN) | payer OTHER ==
[~2018-09-08] VITALS: Ht 160 cm; Wt 70.8 kg
--- NOTE | ~2018-09-08 | DS ---
[place], [place] DISCHARGE SUMMARY NAME: GALINA PEÑA [facility] #: [id number] UNIT #: [id number] ROOM: 407 DOCTOR: DEBBIE ARNOLD MD BIRTHDATE: [birth year] DOS: 09/11/2018 DIAGNOSES: 1. Urinary tract infection with Enterobacter cloacae and Klebsiella pneumoniae. 2. Diarrhea, resolved, Clostridium difficile negative, possibly from metformin. 3. Type 2 diabetes mellitus, insulin-dependent. 4. Bipolar disorder. 5. Generalized anxiety disorder. 6. Benign hypertension. 7. Major depression, moderate, recurrent. 8. Seizure disorder. 9. Peripheral neuropathy. 10. Coronary artery disease of [place] coronaries. HOSPITAL COURSE: This patient is 52 years old, comes in with complaints of nausea, vomiting and diarrhea. She was diagnosed with acute kidney injury and was admitted. After admission, was placed on IV fluids. Urine cultures were sent, which grew Enterobacter cloacae and Klebsiella pneumoniae for which she is on Rocephin. White cell count has slowly come down. She had diarrhea, nausea, emesis completely resolved. The patient after admission continues to improve and has not had any diarrhea, nausea, emesis. Some of her medications have been discontinued including metformin, which could be causing diarrhea. Blood sugars controlled in the low 100s here. She is advised to continue with Tresiba at home. The patient is stable, plan to discharge her to home today. Follow up with Dr. Bose. DISCHARGE MEDICATIONS: Cipro 500 mg b.i.d. for 7 days, lisinopril 10 daily, diazepam 10 t.i.d. p.r.n., trazodone 100 at bedtime, docusate 100 daily, BuSpar 15 t.i.d., albuterol 2 puffs q.i.d. p.r.n., doxepin 25 at bedtime, sertraline 200 daily, Abilify 30 bedtime, insulin, Tresiba she takes 25 units t.i.d., Anoro Ellipta 1 inhalation daily, isosorbide 30 daily, metoprolol 25 daily, gabapentin 300 b.i.d., breathing treatments q.6 p.r.n., melatonin 10 daily, Keppra 500 b.i.d. [place], [place] DISCHARGE SUMMARY NAME: GALINA PEÑA UNIT #: [id number] ROOM: 407 DOCTOR: DEBBIE ARNOLD MD BIRTHDATE: [birth year] DEBBIE ARNOLD MD CM:FERNANDEZ DEBBIE ARNOLD MD 09/11/1834 interface
--- NOTE | ~2018-09-08 | WRIGHTHP ---
[place], [place] PATIENT HISTORY AND PHYSICAL EXAM NAME: GALINA PEÑA [facility] #: [id number] UNIT #: [id number] ROOM: 407 DOCTOR: SHELBY YANG MD BIRTHDATE: [birth year] DOS: 09/09/2018 HISTORY OF PRESENT ILLNESS: A 52-year-old female with a past medical history of 1. Moderate protein-calorie malnutrition. 2. Obesity. 3. Type 2 diabetes mellitus. 4. Bipolar disorder. 5. Generalized anxiety disorder. 6. Major depression, recurrent, moderate. 7. GERD and esophagitis. 8. Hypertension. 9. Generalized seizure disorder. 10. History of neuropathic pain. 11. Coronary artery disease of [place] vessels. 12. Hyperlipidemia, mixed type. 13. COPD. 14. Migraine headaches. The patient presented to my office with recurrent nausea, vomiting and diarrhea for 4 days and she was getting weaker with no improvement and she already had been to the Emergency Department two times. She has no chest pain, no shortness of breath, no GI or urinary symptoms. FAMILY HISTORY: Noncontributory. HOME MEDICATIONS: Tylenol, isosorbide, lisinopril, metoprolol, Zoloft, Keppra, trazodone, buspirone, diazepam. ALLERGIES: Known allergies to DILANTIN. FAMILY HISTORY: Noncontributory. PHYSICAL EXAMINATION: GENERAL: Alert, oriented x 3. Signs of dehydration with dry tongue. VITAL SIGNS: Blood pressure 106/58, heart rate of 73 beats per minute, breathing 22 times per minute, temperature 98.4 degrees Fahrenheit. HEENT AND NECK: Extraocular movements are intact. Sclerae are anicteric. Oral mucosa is moist and clean. No obvious facial weakness. Neck is supple without any lymphadenopathy. No thyromegaly. No JVD. No carotid arterial bruits. LUNGS: Clear to auscultation. No wheezing. No rhonchi. CARDIOVASCULAR SYSTEM: Heart rate is regular in rate and rhythm. S1 and S2 normally audible. No significant murmur or any other abnormal cardiac sounds. ABDOMEN: Soft, nontender. No obvious organomegaly. Bowel sounds are present. No obvious herniation. EXTREMITIES: Without significant cyanosis or edema. Warm to touch. CENTRAL NERVOUS SYSTEM: Alert and oriented x 3. Cranial nerves II-XII are intact. Speech is normal. The patient is able to move all extremities. Normal muscle strength. Deep tendon reflexes are equal on both sides. Plantars were downgoing. [place], [place] PATIENT HISTORY AND PHYSICAL EXAM [facility]: [id number] UN[facility] #: [id number] ROOM: [facility] DOCTOR: SHELBY YANG MD BIRTHDATE: [birth year] IMPRESSION AND PLAN: 1. The patient with acute dehydration from recurrent nausea, vomiting and diarrhea for 4 days, apparently viral gastroenteritis. The patient thinks that it had to do with Celebrex, which has already been on hold. No relief of symptoms. The patient was admitted and started on hydration with normal saline and stool studies were sent for cultures and C. diff toxin. White cell count elevated to 12,000, apparently from acute gastroenteritis. 2. Urinary tract infection with Enterobacter cloacae and Klebsiella pneumoniae, sensitive to ceftriaxone, to be treated. 3. Bipolar disorder. I will continue her home medications. 4. Major depression, recurrent, moderate. The patient remains on doxepin, Zoloft. 5. Generalized seizure disorder, treated with Keppra. No recent seizures. 6. Benign essential hypertension, treated and controlled with lisinopril and metoprolol. 7. Coronary artery disease of grayling vessels without chest pains. The patient remains on isosorbide. SHELBY YANG MD CM:HISPHYS:PATIENT HISTORY AND PHYSICAL EXAMINATION 1218 1255 SHELBY YANG MD 09/09/18 1255 interface
--- NOTE | ~2018-09-08 | PR ---
[place], [place] PROGRESS NOTE [id number] UNIT #: [id number] ROOM: 407 DOCTOR: DEBBIE ARNOLD MD BIRTHDATE: [birth year] DOS: 09/11/2018 SUBJECTIVE: The patient is doing well, does not have any new complaints. OBJECTIVE: VITAL SIGNS: Blood pressure is 133/78, pulse of 80, respirations 16, temperature 97.7. LUNGS: Clear. HEART: Regular. ABDOMEN: Obese, soft. EXTREMITIES: Without any edema. LABORATORY DATA: C. diff titer was negative. CT of the abdomen and pelvis was negative. Urine culture shows Enterobacter cloacae for which she is on antibiotics, which will convert to p.o. today. ASSESSMENT AND PLAN: 1. Urinary tract infection with Enterobacter cloacae and Klebsiella pneumoniae. We will switch to p.o. Cipro. 2. Diarrhea, nausea, emesis, which is resolved, most likely gastroenteritis. 3. Type 2 diabetes mellitus, insulin-dependent, controlled. Part of the diarrhea could also be from metformin. She will be discontinued. DEBBIE ARNOLD MD CM:PNTRANS [id number] DEBBIE ARNOLD MD 09/11/18 1016 interface
--- NOTE | ~2018-09-08 | PR ---
[place], [place] PROGRESS NOTE NAME: GALINA PEÑA UNIT #: [id number] ROOM: 407 DOCTOR: DEBBIE ARNOLD MD BIRTHDATE: [birth year] DOS: 09/10/2018 SUBJECTIVE: The patient is doing fairly well. She states that she had nausea and emesis on admission, but is no longer having any. Appetite is poor. Does complain of minimal left lower quadrant abdominal pain. Denies any chest pains or palpitations. OBJECTIVE: VITAL SIGNS: Graphic trend shows a pressure of 127/65, pulse of 90, respirations 18, temperature 97.8. LUNGS: Diminished breath sounds. Clear. HEART: Regular. ABDOMEN: Obese, soft, tenderness in the left lower quadrant. BREASTS: Bilateral mastectomy scars. EXTREMITIES: Without any edema. LABORATORY DATA: Urine culture shows Enterobacter cloacae and Klebsiella pneumoniae, which is sensitive to ceftriaxone. White cell count was elevated at 15,000 at admission, it is down to 12,000 this morning. Kidney functions are within normal limits. ASSESSMENT AND PLAN: The patient with complaints of nausea, vomiting, diarrhea and abdominal pain. 1. Urinary tract infection with 2 different bacteria. IV ceftriaxone will be ordered. 2. Diarrhea could be from metformin that she is on, which has now resolved. Metformin will be discontinued. 3. Type 2 diabetes mellitus. Blood sugars controlled, 165 this morning. 4. Abdominal pain, left lower quadrant, could be from the ongoing urinary tract infection, but we will need to rule out diverticulitis. A CT of the abdomen and pelvis will be ordered. DEBBIE ARNOLD MD CM:PNTRANS 1 7 DEBBIE ARNOLD MD 09/10/1808 interface
[2018-09-08 17:10] VITALS: BP 124/58
--- NOTE | 2018-09-08 17:12 | NUR ---
A 52, admitted to , under the services of Dr. CELIA FRANCOIS,SHELBY Bustillo with a diagnosis of DEHYDRATION DIARRHEA, VOMITING. Chief complaint is DEHYDRATION, DIARRHEA, VOMITING. Patient arrived via bed from ER. Monitor applied. Initial assessment completed. Vital signs taken and recorded. DR. CELIA FRANCOIS,SHELBY Bustillo notified of admission to the unit. Orders received. See assessment for past medical history, medications and allergies. Patient and/or family oriented to unit. [facility] visitation policy reviewed. Clothing/patient valuable form completed. JAZLYN GOYAL
[2018-09-08] MEDS ORDERED: GLUCOPHAGE500 M1 PO (17:38)
[2018-09-08] MEDS ORDERED: INVOKAMET 50-51 EACH PO (17:41)
[2018-09-08] MEDS ORDERED: CELECOXIB200 M1 PO (17:42)
--- NOTE | 2018-09-08 17:57 | NUR ---
CALLED FOR ORDERS, WILL BE HERE IN 15 MINUTE OK TO START NCS DIETS
--- NOTE | 2018-09-08 19:40 | NUR ---
22G PERIPHERAL IV INSERTED INTO LEFT FOREARM ON FIRST ATTEMPT WITHOUT DIFFICULTY. GOOD BLOOD RETURN. PATIENT TOLERATED WELL.
[2018-09-08 20:00] VITALS: BP 108/64
--- NOTE | 2018-09-08 23:46 | NUR ---
22:52 PT REFUSED DA AT THIS TIME. SHE PREFERRS TO WAIT TIL THE MORMING TO START THE TREATMENTS. SPO2 94% ON RA. RESPS REGULAR AND UNLABORED. BBSs SLIGHTLY DIMINISHED WITH FEW SCATTERED RHONCHI.
[2018-09-09] VITALS: BP 106/58
[2018-09-09 06:56] LABS: BASO # 0.1 10*3/uL (0.0-0.1); BASO % 0.7 % (0.0-1.0); EOS # 0.6 10*3/uL (0.0-0.4); HEMATOCRIT 43.5 % (37.0-47.0); HEMOGLOBIN 14.2 g/dl (12.0-16.0); LYMPH # 3.6 10*3/uL (1.3-4.4); LYMPH % 29.1 % (27.0-41.0); MEAN CELL VOLUME 96.9 fl (81.0-99.0); MEAN CORPUSCULAR HGB 31.6 pg (27.0-31.0); MEAN CORPUSCULAR HGB CONC 32.6 g/dl (33.0-37.0); MEAN PLATELET VOLUME 10.2 fl (9.6-12.3); MONO # 0.7 10*3/uL (0.1-1.0); MONO % 5.5 % (3.0-9.0); NEUT # 7.3 10*3/uL (2.3-7.9); NEUT % 59.4 % (47.0-73.0); PLATELET COUNT AUTOMATED 295 10*3/uL (130-400); RED BLOOD COUNT 4.49 10*6/uL (4.10-5.10); RED CELL DISTRI WIDTH 13.4 % (0-14.5); WHITE BLOOD COUNT 12.2 10*3/uL (4.8-10.8)
[2018-09-09 07:30] LABS: BUN 18 mg/dl (7-24); CHLORIDE 111 mmol/L (98-107); SODIUM 141 mmol/L (136-145)
[2018-09-09 07:31] LABS: CREATININE 0.92 mg/dL (0.55-1.02)
[2018-09-09 08:00] VITALS: BP 122/68
--- NOTE | 2018-09-09 09:00 | NUR ---
President And Chief Executive Officer in to talk to patient. Patient states lives at home alone with her family checking in on her. There are 0 steps in the home. There is an elevator. Physician: Dr. Kj Gibson Pharmacy: [facility] Home health services: none Patient's level of ADLs: INDEPENDENT Patient has working utilities: yes DME: nebulizer Follow-up physician's appointment after d/c: she prefers to make her own follow up appt after discharge Does patient want to access PORTAL?: no Discharge plan discussed with patient. She lives at home alone with her family checking in on her. She is independent in her ADLs and ambulation. Discussed home health care services and she denies any home needs at this time. When medically stable she will be discharged to home. Her daughter will transport on discharge. ALESSIA HUBBARD
[2018-09-09 09:39] VITALS: BP 124/62
--- NOTE | 2018-09-09 09:41 | NUR ---
PT GIVEN VALIUM FOR C/O ANXIETY/AGITATION. WILL MONITOR FOR EFFECTIVENESS. CALL LIGHT IN REACH.
--- NOTE | 2018-09-09 10:41 | NUR ---
VALIUM EFFECTIVE PER PT.
[2018-09-09 12:00] VITALS: BP 123/63
--- NOTE | 2018-09-09 12:43 | NUR ---
TYLENOL GIVEN TO PT FOR C/O HEADACHE. WILL MONTIOR. CALL LIGHT IN REACH.
--- NOTE | 2018-09-09 13:31 | NUR ---
PT STATES THAT TYLENOL IS INEFFECTIVE AND STATES THAT SHE WOULD LIKE SOMETHING ELSE. DR YANG NOTIFIED. NEW ORDERS RECEIVED FOR FIORCIET ONE TAB WITH CODEINE 30 MG. PT IS TO HAVE A DOSE NOW AND THEN PRN ORDER ENTERED FOR TID NEEDED FOR HEADACHES. ORDER RECEIVED FOR ZOFRAN 8 MG VIA IV Q6H NEEDED FOR NAUSEA. WILL MEDICATE PT WHEN MEDICATION AVAILABLE TO PULL FROM morphCARDXIS. WILL NOTIFY PT OF NEW ORDERS.
--- NOTE | 2018-09-09 15:03 | NUR ---
FIORCIET WITH CODEINE 30 MG AND 8 MG ZOFRAN VIA IV GIVEN AT THIS TIME FOR HEADACHE AND NAUSEA. WILL MONTIOR FOR EFFECTIVENESS. PT RESTING IN BED, CALL LIGHT IN REACH.
[2018-09-09 16:00] VITALS: BP 139/72
--- NOTE | 2018-09-09 16:03 | NUR ---
PT STATES THAT PRN MEDICATIONS ARE EFFECTIVE.
--- NOTE | 2018-09-09 17:23 | NUR ---
PT GIVEN VALIUM FOR INCREASED ANXIETY. WILL CONTINUE TO MONITOR. CALL LIGHT IN REACH.
--- NOTE | 2018-09-09 18:23 | NUR ---
VALIUM EFFECITVE PER PT.
[2018-09-09 20:00] VITALS: BP 130/57
--- NOTE | 2018-09-09 20:00 | NUR ---
AAOX3; RESTING IN BED. IV FLUIDS INFUSING INTO LEFT ARM WITHOUT DIFFICULTY; SITE ASYMPTOMATIC. PT. VOCIES NO C/O AT THIS TIME. NO DISTRESS NOTED. CALL LIGHT WITHIN REACH.
--- NOTE | 2018-09-09 22:00 | NUR ---
TOOK PO MEDICATIONS WITHOUT DIFFICULTY. CALL LIGHT WITHIN REACH. PT. VOICES NO C/O AT THIS TIME. NO DISTRESS NOTED.
[2018-09-10] VITALS: BP 127/65
--- NOTE | 2018-09-10 04:48 | NUR ---
MEDICATED WITH PRN VALIUM FOR C/O ANXIOUSNESS.
[2018-09-10 06:06] LABS: BASO # 0.1 10*3/uL (0.0-0.1); BASO % 0.6 % (0.0-1.0); EOS # 0.6 10*3/uL (0.0-0.4); EOS % 4.8 % (1.0-4.0); HEMATOCRIT 39.4 % (37.0-47.0); LYMPH # 3.3 10*3/uL (1.3-4.4); LYMPH % 26.9 % (27.0-41.0); MEAN CELL VOLUME 96.6 fl (81.0-99.0); MEAN CORPUSCULAR HGB 31.9 pg (27.0-31.0); MEAN PLATELET VOLUME 10.2 fl (9.6-12.3); MONO # 0.7 10*3/uL (0.1-1.0); MONO % 5.3 % (3.0-9.0); NEUT # 7.7 10*3/uL (2.3-7.9); PLATELET COUNT AUTOMATED 262 10*3/uL (130-400); RED BLOOD COUNT 4.08 10*6/uL (4.10-5.10); RED CELL DISTRI WIDTH 13.2 % (0-14.5); WHITE BLOOD COUNT 12.4 10*3/uL (4.8-10.8)
[2018-09-10 06:28] LABS: BUN 12 mg/dl (7-24); CHLORIDE 113 mmol/L (98-107); CREATININE 0.89 mg/dL (0.55-1.02); POTASSIUM 3.8 mmol/L (3.5-5.1); SODIUM 143 mmol/L (136-145)
--- NOTE | 2018-09-10 06:30 | NUR ---
RESTING IN BED WITH EYES CLOSED; VALIUM GIVEN EARLIER EFFECTIVE. CALL LIGHT REMAINS WITHIN REACH.
[2018-09-10 08:00] VITALS: BP 142/88; BP 156/74
--- NOTE | 2018-09-10 08:14 | NUR ---
CT PREP STARTED AT THIS TIME, PT OTHERWISE NPO.
--- NOTE | 2018-09-10 08:25 | NUR ---
MEDICATED WITH TYLENOL FOR THE ONCOMING OF A MIGRAINE. WILL MONITOR FOR EFFECTIVENESS.
--- NOTE | 2018-09-10 09:44 | NUR ---
PT COMPLETED CT PREP.
--- NOTE | 2018-09-10 11:58 | NUR ---
DR ARNOLD MADE AWARE OF CT RESULTS. ORDERS RECEIVED.
[2018-09-10 12:00] VITALS: BP 122/96
--- NOTE | 2018-09-10 12:32 | NUR ---
MEDICATED WITH VALIUM FOR ANXIETY. WILL MONITOR FOR EFFECTIVENESS.
[2018-09-10 16:00] VITALS: BP 145/86
--- NOTE | 2018-09-10 19:30 | NUR ---
24 HOUR CHART CHECK COMPLETE.
[2018-09-10 20:00] VITALS: BP 160/80; BP 174/74
--- NOTE | 2018-09-10 20:27 | NUR ---
PRN VALIUM ADMINISTERED PRESCRIBED. WILL CONTINUE TO MONITOR THE PT. NO OTHER COMPLAINTS AT THIS TIME.
--- NOTE | 2018-09-10 21:50 | NUR ---
SPOKE WITH RESPIRATORY REGARDING PT C/O DIFFICULTY BREATHING. PT REQUESTING TO RECEIVE A BREATHING TREATMENT. RESPIRATORY ON THEIR WAY.
--- NOTE | 2018-09-10 21:56 | NUR ---
RESPIRATORY AT BEDSIDE GIVING BREATHING TREATMENT. WILL CONTINUE TO MONITOR PT.
[2018-09-10 22:05] VITALS: BP 151/71
--- NOTE | 2018-09-10 22:45 | NUR ---
PT RESTING IN BED. NO SIGNS OF DISCOMFORT OR DISTRESS NOTED AT THIS TIME. PT BREATHING EASY AND UNLABORED. WILL CONTINUE TO MONITOR.
[2018-09-11] VITALS: BP 133/78
--- NOTE | 2018-09-11 04:30 | NUR ---
PRN VALIUM ADMINISTERED PRESCRIBED. WILL CONTINUE TO MONITOR PT.
[2018-09-11 05:54] LABS: BUN 11 mg/dl (7-24); CHLORIDE 108 mmol/L (98-107); CREATININE 0.95 mg/dL (0.55-1.02); POTASSIUM 4.3 mmol/L (3.5-5.1); SODIUM 137 mmol/L (136-145)
[2018-09-11 07:41] LABS: BASO # 0.1 10*3/uL (0.0-0.1); BASO % 0.7 % (0.0-1.0); EOS # 0.5 10*3/uL (0.0-0.4); EOS % 4.4 % (1.0-4.0); HEMOGLOBIN 13.9 g/dl (12.0-16.0); LYMPH # 3.3 10*3/uL (1.3-4.4); LYMPH % 26.8 % (27.0-41.0); MEAN CELL VOLUME 96.1 fl (81.0-99.0); MEAN CORPUSCULAR HGB 31.8 pg (27.0-31.0); MEAN CORPUSCULAR HGB CONC 33.1 g/dl (33.0-37.0); MEAN PLATELET VOLUME 9.8 fl (9.6-12.3); MONO # 0.6 10*3/uL (0.1-1.0); MONO % 5.1 % (3.0-9.0); NEUT # 7.6 10*3/uL (2.3-7.9); NEUT % 62.5 % (47.0-73.0); PLATELET COUNT AUTOMATED 288 10*3/uL (130-400); RED BLOOD COUNT 4.37 10*6/uL (4.10-5.10); RED CELL DISTRI WIDTH 13.2 % (0-14.5); WHITE BLOOD COUNT 12.2 10*3/uL (4.8-10.8)
[2018-09-11] MEDS ORDERED: CIPRO500 MG PO (08:36)
--- NOTE | 2018-09-11 10:18 | NUR ---
Discharge instructions reviewed with patient/family. Patient receptive and verbalizes understanding. Follow-up care arranged. Written instructions given to patient/family. CYNDI SLAUGHTER
== END 2018-09-11 10:18 | disposition home or self-care (01) | DRG 690 ==
LOC: 4E 16:50
PROVIDERS: ADMIT Internal Medicine
DX: N39.0 Urinary tract infection, site not specified (principal); N17.9 Acute kidney failure, unspecified; F33.1 Major depressive disorder, recurrent, moderate; K52.9 Noninfective gastroenteritis and colitis, unspecified; F41.1 Generalized anxiety disorder; B96.1 Klebsiella pneumoniae [K. pneumoniae] as the cause of diseases classified elsewhere; B96.89 Other specified bacterial agents as the cause of diseases classified elsewhere; E66.9 Obesity, unspecified; K21.9 Gastro-esophageal reflux disease without esophagitis; E86.0 Dehydration; E78.2 Mixed hyperlipidemia; J44.9 Chronic obstructive pulmonary disease, unspecified; G43.909 Migraine, unspecified, not intractable, without status migrainosus; I10 Essential (primary) hypertension; G40.909 Epilepsy, unspecified, not intractable, without status epilepticus; E11.42 Type 2 diabetes mellitus with diabetic polyneuropathy; I25.10 Atherosclerotic heart disease of native coronary artery without angina pectoris; T38.3X5A Adverse effect of insulin and oral hypoglycemic [antidiabetic] drugs, initial encounter; Y92.89 Other specified places as the place of occurrence of the external cause; Z88.8 Allergy status to other drugs, medicaments and biological substances; Z68.27 Body mass index [BMI] 27.0-27.9, adult

== ENCOUNTER 2018-10-10 17:41 | Emergency (ER) | payer OTHER ==
[~2018-10-10] VITALS: Ht 160 cm; Wt 73.9 kg
[~2018-10-10 17:41] MED LIST changes: +CELECOXIB200 M1 PO; +CIPRO500 MG PO; +INVOKAMET 50-51 EACH PO; +VANCOMYCIN HCL125 MG PO; +VOLTAREN100 GM T
[2018-10-10 17:58] LABS: BILIRUBIN NEGATIVE (NEGATIVE); BLOOD NEGATIVE (NEGATIVE); CLARITY SL CLOUDY (CLEAR); COLOR YELLOW (YELLOW); GLUCOSE 3+ (NEGATIVE); KETONE NEGATIVE (NEGATIVE); LEUKO ESTERASE NEGATIVE (NEGATIVE); NITRITE NEGATIVE (NEGATIVE); UROBILINOGEN 0.2 E.U./dl (0.2-1.0)
[2018-10-10 18:09] LABS: BACTERIA 1+; EPITHELIAL CELLS 16-20
[2018-10-10] MEDS ORDERED: PYRIDIUM200 M1 PO (19:01)
[2018-10-10] MEDS ORDERED: ROBAXIN500 M1 PO (19:01)
[2018-10-10] MEDS ORDERED: MEDROL DOSEPAK4 MG PO (19:01)
== END 2018-10-10 19:08 | disposition home or self-care (01) ==
LOC: ED 17:41
PROVIDERS: Nurse Practitioner Family
DX: S76.011A Strain of muscle, fascia and tendon of right hip, initial encounter (principal); R30.0 Dysuria; G89.29 Other chronic pain; F17.290 Nicotine dependence, other tobacco product, uncomplicated; Z91.030 Bee allergy status; Z88.8 Allergy status to other drugs, medicaments and biological substances; Z79.899 Other long term (current) drug therapy; Z79.2 Long term (current) use of antibiotics; Z79.4 Long term (current) use of insulin; Z90.49 Acquired absence of other specified parts of digestive tract; Z90.710 Acquired absence of both cervix and uterus; X50.1XXA Overexertion from prolonged static or awkward postures, initial encounter; Y93.89 Activity, other specified; Y92.098 Other place in other non-institutional residence as the place of occurrence of the external cause; Y99.8 Other external cause status

== ENCOUNTER 2018-10-14 17:20 | Inpatient (IN) | payer OTHER ==
[~2018-10-14] VITALS: Ht 160 cm; Wt 75.8 kg
[~2018-10-14 17:20] MED LIST changes: +MEDROL DOSEPAK4 MG PO; +PYRIDIUM200 M1 PO; +ROBAXIN500 M1 PO
[2018-10-14 17:21] VITALS: BP 107/50
[2018-10-14 18:40] LABS: ALBUMIN 3.6 gm/dl (3.1-4.5); CREATININE 1.57 mg/dL (0.55-1.02); POTASSIUM 4.6 mmol/L (3.5-5.1); TOTAL PROTEIN 7.4 gm/dL (6.4-8.2)
[2018-10-14 19:10] LABS: BASO # 0.1 10*3/uL (0.0-0.1); BASO % 0.4 % (0.0-1.0); EOS # 0.3 10*3/uL (0.0-0.4); EOS % 1.4 % (1.0-4.0); HEMATOCRIT 37.1 % (37.0-47.0); HEMOGLOBIN 12.8 g/dl (12.0-16.0); LYMPH # 1.6 10*3/uL (1.3-4.4); LYMPH % 7.9 % (27.0-41.0); MEAN CORPUSCULAR HGB 32.1 pg (27.0-31.0); MEAN CORPUSCULAR HGB CONC 34.5 g/dl (33.0-37.0); MONO # 0.4 10*3/uL (0.1-1.0); MONO % 1.9 % (3.0-9.0); NEUT # 17.9 10*3/uL (2.3-7.9); NEUT % 87.7 % (47.0-73.0); PLATELET COUNT AUTOMATED 294 10*3/uL (130-400); RED BLOOD COUNT 3.99 10*6/uL (4.10-5.10); RED CELL DISTRI WIDTH 12.9 % (0-14.5); WHITE BLOOD COUNT 20.4 10*3/uL (4.8-10.8)
[2018-10-14 19:30] VITALS: BP 122/53
--- NOTE | 2018-10-14 19:40 | NUR ---
PT AND DAUGHTER PROVIDE PASSWORD OF "[id number]"
--- NOTE | 2018-10-14 20:00 | NUR ---
HEMATOMA NOTED TO THE RIGHT HAND, PT HAD BLOOD DRAW IN IT EARLIER TODAY. LAB IN TO DRAW AND THATS WHEN HEMATOMA STARTED.
[2018-10-14 21:25] LABS: BILIRUBIN NEGATIVE (NEGATIVE); BLOOD 1+ (NEGATIVE); CLARITY CLEAR (CLEAR); COLOR YELLOW (YELLOW); GLUCOSE 3+ (NEGATIVE); KETONE NEGATIVE (NEGATIVE); LEUKO ESTERASE TRACE (NEGATIVE); NITRITE NEGATIVE (NEGATIVE); UROBILINOGEN 0.2 E.U./dl (0.2-1.0)
[2018-10-14 21:44] LABS: EPITHELIAL CELLS 41-50
[2018-10-14 21:45] LABS: BACTERIA 1+; WBC 16-20 wbc/hpf (0-5)
[2018-10-14 22:40] VITALS: BP 123/70
--- NOTE | 2018-10-14 22:40 | NUR ---
Time: 2239 A 52 year old F admitted to under services of DR. CELIA FRANCOIS,SHELBY Duke Pt. arrived via stretcher from ER. Chief complaint: HIGH BLOOD SUGAR. CHONG PHILLIPS
--- NOTE | 2018-10-14 23:10 | NUR ---
CALLED DR. YANG FOR ADMISSION ORDERS.
[2018-10-15] VITALS: BP 123/70
--- NOTE | 2018-10-15 | NUR ---
RESTING IN BED WITH EYES CLOSED. CALL LIGHT WITHIN REACH.
--- NOTE | 2018-10-15 04:10 | NUR ---
ASSIST OF 1 UP TO BATHROOM.
--- NOTE | 2018-10-15 06:00 | NUR ---
BLOOD SUGAR 262; COVERAGE GIVEN PER EMAR.
[2018-10-15 08:00] VITALS: BP 127/75
--- NOTE | 2018-10-15 11:47 | NUR ---
PATIENT LEAVING AMA DR. YANG AND ADVISORY SOFTWARE ENGINEER AWARE.
== END 2018-10-15 11:47 | disposition left against medical advice (07) | DRG 683 ==
LOC: ED 17:20 → EDHOLD 21:38 → 5E 22:39
PROVIDERS: Physician Assistant; ADMIT Internal Medicine
DX: N17.9 Acute kidney failure, unspecified (principal); N39.0 Urinary tract infection, site not specified; Z53.21 Procedure and treatment not carried out due to patient leaving prior to being seen by health care provider; F17.210 Nicotine dependence, cigarettes, uncomplicated; E11.65 Type 2 diabetes mellitus with hyperglycemia; Z88.8 Allergy status to other drugs, medicaments and biological substances; Z91.030 Bee allergy status; Z90.13 Acquired absence of bilateral breasts and nipples; Z90.49 Acquired absence of other specified parts of digestive tract; Z90.711 Acquired absence of uterus with remaining cervical stump; Z80.0 Family history of malignant neoplasm of digestive organs; Z82.5 Family history of asthma and other chronic lower respiratory diseases

== ENCOUNTER 2019-01-28 15:11 | Emergency (ER) | payer OTHER ==
[~2019-01-28] VITALS: Ht 160 cm; Wt 72.1 kg
[2019-01-28 15:43] LABS: HEMATOCRIT 38.9 % (37.0-47.0); HEMOGLOBIN 12.8 g/dl (12.0-16.0); MEAN CELL VOLUME 93.3 fl (81.0-99.0); MEAN CORPUSCULAR HGB 30.7 pg (27.0-31.0); MEAN CORPUSCULAR HGB CONC 32.9 g/dl (33.0-37.0); PLATELET COUNT AUTOMATED 302 10*3/uL (130-400); RED BLOOD COUNT 4.17 10*6/uL (4.10-5.10); RED CELL DISTRI WIDTH 15.8 % (0-14.5); WHITE BLOOD COUNT 16.3 10*3/uL (4.8-10.8)
[2019-01-28 15:57] LABS: ALBUMIN 3.6 gm/dl (3.1-4.5); CREATININE 1.16 mg/dL (0.55-1.02); POTASSIUM 4.3 mmol/L (3.5-5.1); TOTAL PROTEIN 6.9 gm/dL (6.4-8.2)
[2019-01-28 16:13] LABS: BILIRUBIN NEGATIVE (NEGATIVE); BLOOD NEGATIVE (NEGATIVE); CLARITY SL CLOUDY (CLEAR); COLOR YELLOW (YELLOW); GLUCOSE 3+ (NEGATIVE); KETONE NEGATIVE (NEGATIVE); LEUKO ESTERASE NEGATIVE (NEGATIVE); NITRITE NEGATIVE (NEGATIVE); SPECIFIC GRAVITY <= 1.005 (1.005-1.030); UROBILINOGEN 0.2 E.U./dl (0.2-1.0)
[2019-01-28 16:19] LABS: RBC 0-2 rbc/hpf (0-2)
[2019-01-28 16:20] LABS: BACTERIA 2+
[2019-01-28 16:33] LABS: ATYPICAL LYMPHS 2 % (0-0); PLATELET SUFFICIENCY NORMAL (NORMAL); TOTAL CELLS COUNTED 100 #CELLS
[2019-01-28] MEDS ORDERED: MACRODANTIN100 M1 PO (20:02)
== END 2019-01-28 20:19 | disposition home or self-care (01) ==
LOC: ED 15:11
PROVIDERS: Student in an Organized Health Care Education/Training Program
DX: R82.71 Bacteriuria (principal); E11.65 Type 2 diabetes mellitus with hyperglycemia; I25.10 Atherosclerotic heart disease of native coronary artery without angina pectoris; J44.9 Chronic obstructive pulmonary disease, unspecified; K21.9 Gastro-esophageal reflux disease without esophagitis; E11.22 Type 2 diabetes mellitus with diabetic chronic kidney disease; I12.9 Hypertensive chronic kidney disease with stage 1 through stage 4 chronic kidney disease, or unspecified chronic kidney disease; N18.3 Chronic kidney disease, stage 3 (moderate); E78.1 Pure hyperglyceridemia; G43.909 Migraine, unspecified, not intractable, without status migrainosus; G40.909 Epilepsy, unspecified, not intractable, without status epilepticus; F17.200 Nicotine dependence, unspecified, uncomplicated; Z91.030 Bee allergy status; Z88.8 Allergy status to other drugs, medicaments and biological substances; Z79.899 Other long term (current) drug therapy; Z79.4 Long term (current) use of insulin; Z90.710 Acquired absence of both cervix and uterus; Z90.49 Acquired absence of other specified parts of digestive tract

== ENCOUNTER 2019-02-05 11:36 | Inpatient (IN) | payer OTHER ==
[~2019-02-05] VITALS: Ht 160 cm; Wt 72.7 kg
[2019-02-05 11:36] VITALS: BP 124/68
[~2019-02-05 11:36] MED LIST changes: +MACRODANTIN100 M1 PO
[2019-02-05 12:18] LABS: HEMATOCRIT 42.8 % (37.0-47.0); HEMOGLOBIN 13.9 g/dl (12.0-16.0); MEAN CELL VOLUME 94.9 fl (81.0-99.0); MEAN CORPUSCULAR HGB 30.8 pg (27.0-31.0); MEAN CORPUSCULAR HGB CONC 32.5 g/dl (33.0-37.0); MEAN PLATELET VOLUME 9.4 fl (9.6-12.3); PLATELET COUNT AUTOMATED 346 10*3/uL (130-400); RED BLOOD COUNT 4.51 10*6/uL (4.10-5.10); RED CELL DISTRI WIDTH 16.2 % (0-14.5); WHITE BLOOD COUNT 17.5 10*3/uL (4.8-10.8)
[2019-02-05 12:28] LABS: INTERNATIONAL NORM RATIO 0.8 (2.0-3.5)
[2019-02-05 12:36] LABS: ALBUMIN 3.5 gm/dl (3.1-4.5); ALKALINE PHOSPHATASE 122 U/L (45-117); BUN 16 mg/dl (7-24); CHLORIDE 107 mmol/L (98-107); CREATININE 1.01 mg/dL (0.55-1.02); LIPASE 172 U/L (73-393); SGOT/AST 13 IU/L (3-35); SGPT/ALT 34 U/L (12-78); SODIUM 138 mmol/L (136-145); TOTAL PROTEIN 7.2 gm/dL (6.4-8.2)
[2019-02-05 12:38] LABS: TROPONIN I < 0.015 ng/ml (<0.045)
[2019-02-05 12:39] LABS: ATYPICAL LYMPHS 1 % (0-0); PLATELET SUFFICIENCY NORMAL (NORMAL); POLYCHROMASIA SLIGHT; TOTAL CELLS COUNTED 100 #CELLS
--- NOTE | 2019-02-05 13:07 | NUR ---
PT HAS NO WOUNDS, DECLINE EXAM OF BUTTOCKS, REQUESTS TO REMAIN CLOTHED UNTIL ARRIVAL TO ADMISSIOJN BED.
[2019-02-05 14:10] VITALS: BP 119/84
--- NOTE | 2019-02-05 14:10 | NUR ---
A 53, admitted to 4E, under the services of Dr. CELIA FRANCOIS,SHELBY Bustillo with a diagnosis of COPD EXACERBATION. Chief complaint is DYSPNEA. Patient arrived via stretcher from ER. Monitor applied. Initial assessment completed. Vital signs taken and recorded. SHELBY MOSHER MD notified of admission to the unit. Orders received. See assessment for past medical history, medications and allergies. Patient and/or family oriented to unit. [employer]. visitation policy reviewed. Clothing/patient valuable form completed. ADRY COMBS
[2019-02-05] MEDS ORDERED: ASPIRIN ADULT L81 M2 PO (14:42)
[2019-02-05 16:00] VITALS: BP 121/79
[2019-02-05 20:00] VITALS: BP 134/72
--- NOTE | 2019-02-05 20:25 | NUR ---
VALIUM ADMINISTERED AT THIS TIME FOR PT C/O ANXIETY. WILL CONTINUE TO MONITOR.
--- NOTE | 2019-02-05 23:22 | NUR ---
24 HOUR CHART CHECK COMPLETE.
[2019-02-05 23:30] VITALS: BP 113/70
[2019-02-06 06:17] LABS: HEMATOCRIT 38.5 % (37.0-47.0); HEMOGLOBIN 12.3 g/dl (12.0-16.0); MEAN CORPUSCULAR HGB 30.7 pg (27.0-31.0); MEAN CORPUSCULAR HGB CONC 31.9 g/dl (33.0-37.0); MEAN PLATELET VOLUME 9.4 fl (9.6-12.3); PLATELET COUNT AUTOMATED 338 10*3/uL (130-400); RED BLOOD COUNT 4.01 10*6/uL (4.10-5.10); RED CELL DISTRI WIDTH 16.5 % (0-14.5); WHITE BLOOD COUNT 26.4 10*3/uL (4.8-10.8)
[2019-02-06 06:40] LABS: PLATELET SUFFICIENCY NORMAL (NORMAL); POLYCHROMASIA SLIGHT; TOTAL CELLS COUNTED 100 #CELLS
--- NOTE | 2019-02-06 07:00 | NUR ---
ARRIVED ON SHIFT, INTRODUCED TO PATIENT, NO NEEDS VOICED AT THIS TIME. WHITE BOARD UPDATED.
--- NOTE | 2019-02-06 07:59 | NUR ---
Shift chart check completed.
[2019-02-06 08:00] VITALS: BP 141/76
--- NOTE | 2019-02-06 08:10 | NUR ---
PATIENT C/O BACK PAIN 09/17 DESCIBES EXCRUTIATING, SHE REPORTS SHE'S HAD IT FOR THE LAST 4 DAYS OFF AND ON, MEDICATED WITH TORODOL, WHITE BOARD UPDATED.
--- NOTE | 2019-02-06 09:10 | NUR ---
PATIENT STATES TORIDOL HAS BEEN MINIMALLY EFFECTIVE, CONTINUES TO REPORT PAIN 4/10.
--- NOTE | 2019-02-06 10:03 | NUR ---
PATIENT REPORTS GOOD EFFECT FROM VALIUM GIVE X 1 HOUR AGO.
--- NOTE | 2019-02-06 10:04 | NUR ---
PATIENT REPORTS SHE FEELS LIKE SHE IS HAVING A PANIC ATTACK, MEDICATED WITH VALIUM ORDERED PRN.
[2019-02-06 12:00] VITALS: BP 118/68
[2019-02-06 16:00] VITALS: BP 128/74
--- NOTE | 2019-02-06 16:12 | NUR ---
PATIENT C/O FEELIN ANXIOUS MEDICATED WITH VALIUM ORDERED TID PRN, PATIENT AWARE SHE CAN ONLY HAVE 1 MORE DOSE TODAY.
[2019-02-06 20:00] VITALS: BP 117/66
--- NOTE | 2019-02-06 23:46 | NUR ---
24 HR chart check completed.
[2019-02-07] VITALS: BP 135/73
--- NOTE | 2019-02-07 | NUR ---
SLEEPING, AWAKENS EASILY. RESPIRATIONS EASY. LUNGS DIMINISHED, CLEAR. PULSE OX 92% RA. DENIES SOB. CALL LIGHT WITHIN REACH. NO VOICED COMPLAINTS
--- NOTE | 2019-02-07 06:00 | NUR ---
SLEPT THROUGHOUT NIGHT WITH NO DISTRESS NOTED. RESPIRATIONS EASY. CALL LIGHT WITHIN REACH. NO VOICED COMPLAINTS THIS SHIFT
[2019-02-07 06:32] LABS: BASO # 0.1 10*3/uL (0.0-0.1); BASO % 0.4 % (0.0-1.0); EOS # 0.3 10*3/uL (0.0-0.4); EOS % 1.3 % (1.0-4.0); HEMATOCRIT 39.8 % (37.0-47.0); HEMOGLOBIN 12.5 g/dl (12.0-16.0); LYMPH # 4.3 10*3/uL (1.3-4.4); LYMPH % 21.3 % (27.0-41.0); MEAN CELL VOLUME 96.1 fl (81.0-99.0); MEAN CORPUSCULAR HGB 30.2 pg (27.0-31.0); MEAN CORPUSCULAR HGB CONC 31.4 g/dl (33.0-37.0); MEAN PLATELET VOLUME 9.6 fl (9.6-12.3); MONO # 0.7 10*3/uL (0.1-1.0); MONO % 3.2 % (3.0-9.0); NEUT # 14.8 10*3/uL (2.3-7.9); NEUT % 72.8 % (47.0-73.0); PLATELET COUNT AUTOMATED 340 10*3/uL (130-400); RED BLOOD COUNT 4.14 10*6/uL (4.10-5.10); RED CELL DISTRI WIDTH 16.6 % (0-14.5); WHITE BLOOD COUNT 20.4 10*3/uL (4.8-10.8)
[2019-02-07 08:00] VITALS: BP 133/77
--- NOTE | 2019-02-07 08:39 | NUR ---
PATIENT REQUESTING MEDICATION FOR ANXIETY. VALIUM ADMINISTERED PRESCRIBED. WILL MONITOR FOR EFFECTIVENESS.
--- NOTE | 2019-02-07 09:39 | NUR ---
PATIENT STATES THAT ANXIETY IS BETTER AFTER ADMINISTRATION OF VALIUM. WILL MONITOR.
--- NOTE | 2019-02-07 10:15 | NUR ---
PT C/O NAUSEA W/ NO VOMITING. DR YANG CALLED- NEW ORDER RECIEVED- SEE EMAR.
--- NOTE | 2019-02-07 10:53 | NUR ---
PATIENT REQUESTING MEDICATION FOR NAUSEA. ZOFRAN ADMINISTERED PRESCRIBED. WILL MONITOR FOR EFFECTIVENESS.
--- NOTE | 2019-02-07 11:53 | NUR ---
PATIENT STATES THAT NAUSEA IS A LITTLE BETTER AFTER ZOFRAN ADMINISTERED. WILL MONITOR.
[2019-02-07 12:00] VITALS: BP 132/61
--- NOTE | 2019-02-07 12:35 | NUR ---
IV started left THUMB with #24 protective cath after 3 attempts. Site prepped with Chloroprep. Sterile dressing applied. Patient tolerated procedure well. ALEXIS ISAACS
--- NOTE | 2019-02-07 12:37 | NUR ---
PATIENT REQUESTING PAIN MEDICATION FOR CHRONIC BACK PAIN RATED 8/10 0N 0/10 SCALE. TORODOL ADMINISTERED PRESCRIBED. WILL MONITOR FOR EFFECTIVENESS.
--- NOTE | 2019-02-07 13:37 | NUR ---
PATIENT STATES THAT TORADOL WAS A LITTLE EFFECTIVE FOR BACK PAIN. WILL CONTINUE TO MONITOR.
[2019-02-07 14:08] LABS: BILIRUBIN NEGATIVE (NEGATIVE); BLOOD NEGATIVE (NEGATIVE); CLARITY CLEAR (CLEAR); COLOR YELLOW (YELLOW); GLUCOSE 3+ (NEGATIVE); KETONE NEGATIVE (NEGATIVE); LEUKO ESTERASE NEGATIVE (NEGATIVE); NITRITE NEGATIVE (NEGATIVE); UROBILINOGEN 0.2 E.U./dl (0.2-1.0)
[2019-02-07 14:15] LABS: BACTERIA 1+; EPITHELIAL CELLS 31-40; MUCOUS 1+
[2019-02-07 16:00] VITALS: BP 133/55
--- NOTE | 2019-02-07 17:12 | NUR ---
PATIENT REQUESTING MEDICATION FOR ANXIETY AND NAUSEA. VALIUM AND ZOFRAN ADMINISTERED PRESCRIBED. WILL MONITOR FOR EFFECTIVENESS.
--- NOTE | 2019-02-07 17:54 | NUR ---
PATIENT MEDICATED WITH FLEXERIL FOR BACK PAIN PRESCRIBED. WILL MONITOR FOR EFFECTIVENESS.
--- NOTE | 2019-02-07 18:12 | NUR ---
PATIENT STATES THE VALIUM WAS EFFECTIVE FOR ANXIETY, STATES THAT ZOFRAN WAS SOMEWHAT EFFECTIVE FOR NAUSEA. WILL MONITOR.
[2019-02-07 20:00] VITALS: BP 109/66
--- NOTE | 2019-02-07 20:16 | NUR ---
BLOOD SUGAR CHECK 219
--- NOTE | 2019-02-07 21:00 | NUR ---
MEDICATED WITH PRN TORADOL FOR C/O PAIN IN LOWER BACK RATED 8/10 ON A 0/10 PAIN SCALE. WILL MONITOR
[2019-02-08] VITALS: BP 112/66
--- NOTE | 2019-02-08 01:13 | NUR ---
24 HR chart check completed.
[2019-02-08 06:01] LABS: BASO # 0.1 10*3/uL (0.0-0.1); BASO % 0.6 % (0.0-1.0); EOS # 0.4 10*3/uL (0.0-0.4); EOS % 2.1 % (1.0-4.0); HEMATOCRIT 37.8 % (37.0-47.0); LYMPH # 3.9 10*3/uL (1.3-4.4); LYMPH % 23.8 % (27.0-41.0); MEAN CELL VOLUME 95.2 fl (81.0-99.0); MEAN CORPUSCULAR HGB 30.2 pg (27.0-31.0); MEAN CORPUSCULAR HGB CONC 31.7 g/dl (33.0-37.0); MEAN PLATELET VOLUME 9.4 fl (9.6-12.3); MONO # 0.8 10*3/uL (0.1-1.0); MONO % 4.8 % (3.0-9.0); NEUT # 11.2 10*3/uL (2.3-7.9); NEUT % 67.6 % (47.0-73.0); PLATELET COUNT AUTOMATED 331 10*3/uL (130-400); RED BLOOD COUNT 3.97 10*6/uL (4.10-5.10); RED CELL DISTRI WIDTH 16.3 % (0-14.5); WHITE BLOOD COUNT 16.6 10*3/uL (4.8-10.8)
[2019-02-08 08:00] VITALS: BP 128/70
--- NOTE | 2019-02-08 08:04 | NUR ---
PT STATES THAT SHE IS FEELING ANXIOUS AND THAT HER STOMACH IS UPSET AND REQUESTING SOMETHING FOR BOTH. IV ZOFRAN AND PO VALIUM IS GIVEN AT THIS TIME. WILL CONTINUE TO MONITOR THE PATIENT. CALL LIGHT WITHIN REACH
--- NOTE | 2019-02-08 13:13 | NUR ---
ALMAZ MERRITT IN THE [place], CALLED [facility] AND THEY WILL SEND IT THROUGH
--- NOTE | 2019-02-08 15:12 | NUR ---
Shift chart check completed.
--- NOTE | 2019-02-08 15:44 | NUR ---
PT STATES SHE IS HAVING PAIN IN THE MIDDLES OF HER BACK AND ACROSS HER BRA LINE. SHE RATES IT A 9/10 AND IS REQUESTING SOMETHING FOR PAIN. IV TORADOL IS GIVEN AT THIS TIME. WILL CONTINUE TO MONITOR.
[2019-02-08 16:00] VITALS: BP 125/67
--- NOTE | 2019-02-08 16:59 | NUR ---
PT RE-EVALUATED AT THIS TIME AND IS SLEEPING. WILL CONTINUE TO MONITOR.
--- NOTE | 2019-02-08 19:24 | NUR ---
24 HR chart check completed.
[2019-02-08 20:00] VITALS: BP 152/81
--- NOTE | 2019-02-08 21:57 | NUR ---
PATIENT MEDICATED WITH ZOFRAN FOR COMPLAINTS OF NAUSEA. WILL MONITOR FOR EFFECTIVENESS.
--- NOTE | 2019-02-08 22:57 | NUR ---
PATIENT RESTING WITH EYES CLOSED AT THIS TIME. RESPIRATIONS EASY AND UNLABORED. NO DISTRESS NOTED. CALL LIGHT IN REACH. WILL MONITOR.
[2019-02-09] VITALS: BP 120/67
--- NOTE | 2019-02-09 02:00 | NUR ---
PATIENT RESTING WITH EYES CLOSED. RESPIRATIONS EASY AND UNLABORED. CALL LIGHT IN REACH. WILL MONITOR.
--- NOTE | 2019-02-09 04:00 | NUR ---
PATIENT RESTING WITH EYES CLOSED. RESPIRATIONS EASY AND UNLABORED. CALL LIGHT IN REACH. WILL MONITOR.
--- NOTE | 2019-02-09 05:56 | NUR ---
PATIENT REQUESTING MEDICATION FOR NAUSEA. ZOFRAN ADMINISERED PRESCRIBED. WILL MONITOR FOR EFFECTIVENESS.
[2019-02-09 06:56] LABS: BASO # 0.1 10*3/uL (0.0-0.1); BASO % 0.9 % (0.0-1.0); EOS # 0.4 10*3/uL (0.0-0.4); EOS % 2.7 % (1.0-4.0); HEMATOCRIT 41.8 % (37.0-47.0); HEMOGLOBIN 13.3 g/dl (12.0-16.0); LYMPH # 3.5 10*3/uL (1.3-4.4); LYMPH % 21.2 % (27.0-41.0); MEAN CELL VOLUME 96.1 fl (81.0-99.0); MEAN CORPUSCULAR HGB 30.6 pg (27.0-31.0); MEAN CORPUSCULAR HGB CONC 31.8 g/dl (33.0-37.0); MEAN PLATELET VOLUME 9.7 fl (9.6-12.3); MONO # 0.8 10*3/uL (0.1-1.0); MONO % 4.9 % (3.0-9.0); NEUT # 11.4 10*3/uL (2.3-7.9); NEUT % 69.3 % (47.0-73.0); PLATELET COUNT AUTOMATED 369 10*3/uL (130-400); RED BLOOD COUNT 4.35 10*6/uL (4.10-5.10); RED CELL DISTRI WIDTH 16.2 % (0-14.5); WHITE BLOOD COUNT 16.4 10*3/uL (4.8-10.8)
[2019-02-09 08:00] VITALS: BP 136/74
--- NOTE | 2019-02-09 09:10 | NUR ---
Electric Operator in to see patient. Discussed short term SNF and she refuses. Discussed home health care services and she is agreeable. When provided with a list of agencies she chose [facility]. Dr. Gibson notified. Possible discharge when Dr. Gibson rounds later today.
--- NOTE | 2019-02-09 12:17 | NUR ---
C/O NAUSEA. IV ZOFRAN GIVEN. WILL CONT TO MONITOR. CALL LIGHT IN REACH.
--- NOTE | 2019-02-09 13:17 | NUR ---
IV VERENA EFF. WILL CONT TO MONITOR. CALL LIGHT IN REACH.
--- NOTE | 2019-02-09 14:15 | NUR ---
C/O PAIN OF 9/10 TO BACK. TORADOL GIVEN AT THIS TIME. WILL CONT TO MONITOR. CALL LIGHT IN REACH.
--- NOTE | 2019-02-09 15:11 | NUR ---
TORADOL EFF FOR PAIN. WILL CONT TO MONITOR. CALL LIGHT IN REACH.
[2019-02-09 16:00] VITALS: BP 124/76
[2019-02-09] MEDS ORDERED: AUGMENTIN 875-875 MG PO (18:43)
--- NOTE | 2019-02-09 19:13 | NUR ---
PT DISCHARGED AT THIS TIME. IV REMOVED AND PRESSURE DRESSING APPLIED. VERBALIZED UNDERSTANDING OF DISCHARGE INSTRUCTIONS. PT HAD CIGARETTES IN ER THAT WAS NOT FOUND ON ADMISSIN. LOST ARTICLE FORM FILLED OUT AND GIVEN TO RASHIDA.
--- NOTE | 2019-02-10 07:58 | NUR ---
Faxed new home health care referral to [facility]
--- NOTE | 2019-02-10 11:25 | NUR ---
[facility] doesn't accept patient's insurance. Referral sent to [facility].
== END 2019-02-09 19:15 | disposition home or self-care (01) | DRG 191 ==
LOC: ED 11:36 → 5E 13:49 → 4E 13:49 → EDHOLD 13:49 → 4E 14:07 → 5E 02-06 18:31
PROVIDERS: Nurse Practitioner Family; ADMIT Internal Medicine
DX: J44.1 Chronic obstructive pulmonary disease with (acute) exacerbation (principal); F33.1 Major depressive disorder, recurrent, moderate; K21.0 Gastro-esophageal reflux disease with esophagitis; G40.409 Other generalized epilepsy and epileptic syndromes, not intractable, without status epilepticus; F51.01 Primary insomnia; I25.10 Atherosclerotic heart disease of native coronary artery without angina pectoris; F41.9 Anxiety disorder, unspecified; R10.84 Generalized abdominal pain; I12.9 Hypertensive chronic kidney disease with stage 1 through stage 4 chronic kidney disease, or unspecified chronic kidney disease; R62.7 Adult failure to thrive; R60.0 Localized edema; I87.2 Venous insufficiency (chronic) (peripheral); G43.909 Migraine, unspecified, not intractable, without status migrainosus; E11.22 Type 2 diabetes mellitus with diabetic chronic kidney disease; Z86.73 Personal history of transient ischemic attack (TIA), and cerebral infarction without residual deficits; Z85.3 Personal history of malignant neoplasm of breast; Z92.3 Personal history of irradiation; Z90.49 Acquired absence of other specified parts of digestive tract; Z90.710 Acquired absence of both cervix and uterus; Z90.13 Acquired absence of bilateral breasts and nipples; Z88.8 Allergy status to other drugs, medicaments and biological substances; Z91.030 Bee allergy status; Z80.0 Family history of malignant neoplasm of digestive organs; Z82.5 Family history of asthma and other chronic lower respiratory diseases; Z79.4 Long term (current) use of insulin; Z68.28 Body mass index [BMI] 28.0-28.9, adult; Z79.899 Other long term (current) drug therapy

== ENCOUNTER 2019-02-27 06:47 | Emergency (ER) | payer OTHER ==
[~2019-02-27] VITALS: Ht 160 cm; Wt 73.0 kg
[~2019-02-27 06:47] MED LIST changes: +AUGMENTIN 875-875 MG PO
[2019-02-27 08:18] LABS: BASO # 0.1 10*3/uL (0.0-0.1); BASO % 0.8 % (0.0-1.0); EOS # 0.4 10*3/uL (0.0-0.4); HEMATOCRIT 41.1 % (37.0-47.0); HEMOGLOBIN 13.5 g/dl (12.0-16.0); LYMPH # 3.9 10*3/uL (1.3-4.4); LYMPH % 26.6 % (27.0-41.0); MEAN CELL VOLUME 93.6 fl (81.0-99.0); MEAN CORPUSCULAR HGB 30.8 pg (27.0-31.0); MEAN CORPUSCULAR HGB CONC 32.8 g/dl (33.0-37.0); MEAN PLATELET VOLUME 9.7 fl (9.6-12.3); MONO # 0.8 10*3/uL (0.1-1.0); MONO % 5.5 % (3.0-9.0); NEUT # 9.3 10*3/uL (2.3-7.9); NEUT % 63.3 % (47.0-73.0); PLATELET COUNT AUTOMATED 335 10*3/uL (130-400); RED BLOOD COUNT 4.39 10*6/uL (4.10-5.10); RED CELL DISTRI WIDTH 15.2 % (0-14.5); WHITE BLOOD COUNT 14.7 10*3/uL (4.8-10.8)
[2019-02-27 08:29] LABS: ACT PARTIAL THROMBO TIME 25.7 SECONDS (20.0-32.1); INTERNATIONAL NORM RATIO 0.8 (2.0-3.5)
[2019-02-27 08:31] LABS: ALBUMIN 3.6 gm/dl (3.1-4.5); ALKALINE PHOSPHATASE 111 U/L (45-117); BUN 25 mg/dl (7-24); CHLORIDE 106 mmol/L (98-107); CREATININE 1.07 mg/dL (0.55-1.02); LIPASE 176 U/L (73-393); POTASSIUM 4.5 mmol/L (3.5-5.1); SGOT/AST 7 IU/L (3-35); SGPT/ALT 32 U/L (12-78); SODIUM 136 mmol/L (136-145); TOTAL PROTEIN 7.1 gm/dL (6.4-8.2)
== END 2019-02-27 11:43 | disposition home or self-care (01) ==
LOC: ED 06:47
PROVIDERS: Emergency Medicine
DX: G43.909 Migraine, unspecified, not intractable, without status migrainosus (principal); R11.10 Vomiting, unspecified; I25.10 Atherosclerotic heart disease of native coronary artery without angina pectoris; J44.9 Chronic obstructive pulmonary disease, unspecified; K21.9 Gastro-esophageal reflux disease without esophagitis; E78.1 Pure hyperglyceridemia; G40.909 Epilepsy, unspecified, not intractable, without status epilepticus; E11.22 Type 2 diabetes mellitus with diabetic chronic kidney disease; I12.9 Hypertensive chronic kidney disease with stage 1 through stage 4 chronic kidney disease, or unspecified chronic kidney disease; N18.3 Chronic kidney disease, stage 3 (moderate); F17.200 Nicotine dependence, unspecified, uncomplicated; Z91.030 Bee allergy status; Z88.8 Allergy status to other drugs, medicaments and biological substances; Z79.2 Long term (current) use of antibiotics; Z79.82 Long term (current) use of aspirin; Z79.899 Other long term (current) drug therapy; Z90.49 Acquired absence of other specified parts of digestive tract; Z90.710 Acquired absence of both cervix and uterus

== ENCOUNTER 2019-03-06 10:18 | Inpatient (IN) | payer OTHER ==
[2019-03-06] VITALS (7 sets, daily range): BP systolic 105–125; BP diastolic 62–79
[~2019-03-06] VITALS: Ht 160 cm; Wt 76.7 kg
[2019-03-06 11:00] LABS: ACT PARTIAL THROMBO TIME 24.9 SECONDS (20.0-32.1); INTERNATIONAL NORM RATIO 0.8 (2.0-3.5)
[2019-03-06 11:07] LABS: ALBUMIN 3.4 gm/dl (3.1-4.5); ALKALINE PHOSPHATASE 124 U/L (45-117); BUN 25 mg/dl (7-24); CHLORIDE 101 mmol/L (98-107); CREATININE 1.32 mg/dL (0.55-1.02); POTASSIUM 4.5 mmol/L (3.5-5.1); SGOT/AST 13 IU/L (3-35); SGPT/ALT 36 U/L (12-78); SODIUM 133 mmol/L (136-145); TOTAL PROTEIN 6.8 gm/dL (6.4-8.2); TROPONIN I < 0.015 ng/ml (<0.045)
[2019-03-06 11:35] LABS: HEMATOCRIT 39.1 % (37.0-47.0); HEMOGLOBIN 12.7 g/dl (12.0-16.0); MEAN CELL VOLUME 94.7 fl (81.0-99.0); MEAN CORPUSCULAR HGB 30.8 pg (27.0-31.0); MEAN CORPUSCULAR HGB CONC 32.5 g/dl (33.0-37.0); MEAN PLATELET VOLUME 9.9 fl (9.6-12.3); PLATELET COUNT AUTOMATED 332 10*3/uL (130-400); RED BLOOD COUNT 4.13 10*6/uL (4.10-5.10); WHITE BLOOD COUNT 14.3 10*3/uL (4.8-10.8)
[2019-03-06 11:54] LABS: ATYPICAL LYMPHS 2 % (0-0); TOTAL CELLS COUNTED 100 #CELLS
[2019-03-06 11:55] LABS: PLATELET SUFFICIENCY NORMAL (NORMAL); POLYCHROMASIA SLIGHT
[2019-03-06 16:48] LABS: BILIRUBIN NEGATIVE (NEGATIVE); CLARITY CLEAR (CLEAR); COLOR YELLOW (YELLOW); GLUCOSE NEGATIVE (NEGATIVE)
[2019-03-06 16:49] LABS: BLOOD NEGATIVE (NEGATIVE); KETONE NEGATIVE (NEGATIVE); LEUKO ESTERASE NEGATIVE (NEGATIVE); NITRITE NEGATIVE (NEGATIVE); UROBILINOGEN 0.2 E.U./dl (0.2-1.0); WBC 0-2 wbc/hpf (0-5)
[2019-03-06] MEDS ORDERED: OMEPRAZOLE MAGN20 MG PO (18:40)
[2019-03-06] MEDS ORDERED: INVOKAMET 50-51 EACH PO (18:41)
[2019-03-06] MEDS ORDERED: MELATONIN5 M6 PO (18:42)
[2019-03-06] MEDS ORDERED: CYCLOBENZAPRIN7.5 M2 PO (18:42)
[2019-03-06] MEDS ORDERED: METFORMIN HYDR500 MG PO (19:02)
[2019-03-07] VITALS: BP 123/71
[2019-03-07 08:00] VITALS: BP 110/62
[2019-03-07 12:00] VITALS: BP 125/66
[2019-03-07 16:00] VITALS: BP 100/60
[2019-03-07 20:00] VITALS: BP 99/46
[2019-03-08] VITALS: BP 92/44
[2019-03-08 02:35] VITALS: BP 102/58
[2019-03-08 04:00] VITALS: BP 96/57
[2019-03-08 07:01] LABS: BASO # 0.1 10*3/uL (0.0-0.1); BASO % 0.7 % (0.0-1.0); EOS # 0.4 10*3/uL (0.0-0.4); EOS % 2.8 % (1.0-4.0); HEMATOCRIT 39.1 % (37.0-47.0); HEMOGLOBIN 12.4 g/dl (12.0-16.0); LYMPH # 3.4 10*3/uL (1.3-4.4); MEAN CORPUSCULAR HGB 30.8 pg (27.0-31.0); MEAN CORPUSCULAR HGB CONC 31.7 g/dl (33.0-37.0); MEAN PLATELET VOLUME 10.1 fl (9.6-12.3); MONO # 0.7 10*3/uL (0.1-1.0); MONO % 4.9 % (3.0-9.0); NEUT % 67.8 % (47.0-73.0); PLATELET COUNT AUTOMATED 305 10*3/uL (130-400); RED BLOOD COUNT 4.03 10*6/uL (4.10-5.10); RED CELL DISTRI WIDTH 15.2 % (0-14.5); WHITE BLOOD COUNT 14.7 10*3/uL (4.8-10.8)
[2019-03-08 07:17] LABS: BUN 17 mg/dl (7-24); CHLORIDE 105 mmol/L (98-107); CREATININE 1.11 mg/dL (0.55-1.02); POTASSIUM 4.6 mmol/L (3.5-5.1); SODIUM 138 mmol/L (136-145)
[2019-03-08 12:00] VITALS: BP 99/68
[2019-03-08 16:00] VITALS: BP 106/58
[2019-03-08 20:00] VITALS: BP 109/60
[2019-03-09] VITALS: BP 120/69
[2019-03-09 06:21] LABS: BUN 16 mg/dl (7-24); CHLORIDE 105 mmol/L (98-107); CREATININE 0.93 mg/dL (0.55-1.02); POTASSIUM 4.6 mmol/L (3.5-5.1); SODIUM 138 mmol/L (136-145)
[2019-03-09 06:30] LABS: BASO # 0.1 10*3/uL (0.0-0.1); BASO % 0.6 % (0.0-1.0); EOS # 0.4 10*3/uL (0.0-0.4); EOS % 2.7 % (1.0-4.0); HEMATOCRIT 39.4 % (37.0-47.0); HEMOGLOBIN 12.4 g/dl (12.0-16.0); LYMPH # 3.8 10*3/uL (1.3-4.4); LYMPH % 27.6 % (27.0-41.0); MEAN CELL VOLUME 96.1 fl (81.0-99.0); MEAN CORPUSCULAR HGB 30.2 pg (27.0-31.0); MEAN CORPUSCULAR HGB CONC 31.5 g/dl (33.0-37.0); MONO # 0.9 10*3/uL (0.1-1.0); MONO % 6.2 % (3.0-9.0); NEUT # 8.4 10*3/uL (2.3-7.9); PLATELET COUNT AUTOMATED 303 10*3/uL (130-400); RED CELL DISTRI WIDTH 15.1 % (0-14.5); WHITE BLOOD COUNT 13.6 10*3/uL (4.8-10.8)
== END 2019-03-09 09:32 | disposition home or self-care (01) | DRG 314 ==
LOC: ED 10:18 → EDHOLD 14:03 → 4E 14:03
PROVIDERS: Emergency Medicine; ADMIT Internal Medicine
DX: I95.9 Hypotension, unspecified (principal); N17.0 Acute kidney failure with tubular necrosis; J44.1 Chronic obstructive pulmonary disease with (acute) exacerbation; R07.89 Other chest pain; E11.22 Type 2 diabetes mellitus with diabetic chronic kidney disease; E11.65 Type 2 diabetes mellitus with hyperglycemia; G43.909 Migraine, unspecified, not intractable, without status migrainosus; K76.0 Fatty (change of) liver, not elsewhere classified; M79.2 Neuralgia and neuritis, unspecified; E55.9 Vitamin D deficiency, unspecified; N18.3 Chronic kidney disease, stage 3 (moderate); I12.9 Hypertensive chronic kidney disease with stage 1 through stage 4 chronic kidney disease, or unspecified chronic kidney disease; K21.9 Gastro-esophageal reflux disease without esophagitis; F41.9 Anxiety disorder, unspecified; F31.9 Bipolar disorder, unspecified; I25.10 Atherosclerotic heart disease of native coronary artery without angina pectoris; F17.210 Nicotine dependence, cigarettes, uncomplicated; G40.909 Epilepsy, unspecified, not intractable, without status epilepticus; E86.0 Dehydration; S00.83XA Contusion of other part of head, initial encounter; W19.XXXA Unspecified fall, initial encounter; Y93.89 Activity, other specified; Y92.89 Other specified places as the place of occurrence of the external cause; Z86.73 Personal history of transient ischemic attack (TIA), and cerebral infarction without residual deficits; Y99.8 Other external cause status; Z85.3 Personal history of malignant neoplasm of breast; Z79.4 Long term (current) use of insulin; Z90.13 Acquired absence of bilateral breasts and nipples; Z88.8 Allergy status to other drugs, medicaments and biological substances; Z91.030 Bee allergy status; Z79.899 Other long term (current) drug therapy; Z90.49 Acquired absence of other specified parts of digestive tract; Z90.710 Acquired absence of both cervix and uterus; Z80.0 Family history of malignant neoplasm of digestive organs; Z82.5 Family history of asthma and other chronic lower respiratory diseases

== ENCOUNTER 2019-03-15 19:33 | Inpatient (IN) | payer OTHER ==
[~2019-03-15] VITALS: Ht 160 cm; Wt 74.0 kg
[~2019-03-15 19:33] MED LIST changes: +CYCLOBENZAPRIN7.5 M2 PO; +MELATONIN5 M6 PO; +OMEPRAZOLE MAGN20 MG PO
[2019-03-15 20:00] VITALS: BP 109/64
[2019-03-15 20:07] LABS: HEMATOCRIT 40.9 % (37.0-47.0); HEMOGLOBIN 13.4 g/dl (12.0-16.0); MEAN CELL VOLUME 93.4 fl (81.0-99.0); MEAN CORPUSCULAR HGB 30.6 pg (27.0-31.0); MEAN CORPUSCULAR HGB CONC 32.8 g/dl (33.0-37.0); MEAN PLATELET VOLUME 9.7 fl (9.6-12.3); PLATELET COUNT AUTOMATED 429 10*3/uL (130-400); RED BLOOD COUNT 4.38 10*6/uL (4.10-5.10); RED CELL DISTRI WIDTH 14.4 % (0-14.5); WHITE BLOOD COUNT 18.3 10*3/uL (4.8-10.8)
[2019-03-15] MEDS ORDERED: TRESIBA FL100 UNIT/1 SQ (20:08)
--- NOTE | 2019-03-15 20:11 | NUR ---
PT PROMPTED FOR URINE SPECIMEN.
[2019-03-15 20:23] LABS: ACT PARTIAL THROMBO TIME 25.7 SECONDS (20.0-32.1); INTERNATIONAL NORM RATIO 0.9 (2.0-3.5)
[2019-03-15 20:27] LABS: ALBUMIN 3.9 gm/dl (3.1-4.5); ALKALINE PHOSPHATASE 130 U/L (45-117); BUN 24 mg/dl (7-24); CHLORIDE 103 mmol/L (98-107); CREATININE 1.39 mg/dL (0.55-1.02); POTASSIUM 3.7 mmol/L (3.5-5.1); SGOT/AST 19 IU/L (3-35); SGPT/ALT 40 U/L (12-78); SODIUM 136 mmol/L (136-145); TOTAL PROTEIN 7.7 gm/dL (6.4-8.2)
[2019-03-15 20:31] LABS: TROPONIN I < 0.015 ng/ml (<0.045)
--- NOTE | 2019-03-15 20:38 | NUR ---
PT ASSISTED TO AND FROM RESTROOM.
[2019-03-15 20:39] LABS: ATYPICAL LYMPHS 4 % (0-0); BASOPHILS 1 % (0-1); PLATELET SUFFICIENCY NORMAL (NORMAL); TOTAL CELLS COUNTED 100 #CELLS
[2019-03-15 20:58] LABS: URINE AMPHETAMINES < 1000 (1000ng/ml); URINE BARBITURATES < 200 (200ng/ml); URINE BENZODIAZEPINES > 200 (200ng/ml); URINE CANNABINOIDS (THC) < 50 (50ng/ml); URINE COCAINE < 300 (300ng/ml); URINE METHADONE < 300 (300ng/ml); URINE OPIATES < 300 (300ng/ml)
[2019-03-15 21:09] LABS: URINE PHENCYCLIDINE < 25 (25ng/ml)
--- NOTE | 2019-03-15 21:47 | NUR ---
PT A&OX3.DENIES ANY WOUNDS OR CUTS.
[2019-03-15 22:03] VITALS: BP 106/59
[2019-03-15 22:15] VITALS: BP 132/71
--- NOTE | 2019-03-15 22:15 | NUR ---
A 53, admitted to , under the services of Dr. CELIA FRANCOIS,SHELBY Bustillo with a diagnosis of CHEST PAIN. Chief complaint is CHEST PAIN. Patient arrived via bed from ER. Monitor applied. Initial assessment completed. Vital signs taken and recorded. DR. CELIA FRANCOIS,SHELBY Bustillo notified of admission to the unit. Orders received. See assessment for past medical history, medications and allergies. Patient and/or family oriented to unit. [facility] visitation policy reviewed. Clothing/patient valuable form completed. LASHELL MURILLO
[2019-03-15] MEDS ORDERED: PRINIVIL10 MG PO (22:43)
[2019-03-15] MEDS ORDERED: PROPRANOLOL ER80 MG PO (22:44)
--- NOTE | 2019-03-15 22:50 | NUR ---
ATTEMPTED TO CALL DR. YANG FOR ADMISSION ORDERS, NO ANSWER. WILL TRY AGAIN IN A BIT.
--- NOTE | 2019-03-15 23:15 | NUR ---
ATTEMPTED TO CALL DR. YANG AGAIN FOR ORDERS. NO ANSWER. WILL TRY AGAIN.
--- NOTE | 2019-03-15 23:50 | NUR ---
TRIED DR. YANG AGAIN FOR ORDERS. NO ANSWER. WILL TRY AGAIN.
--- NOTE | 2019-03-16 00:54 | NUR ---
DR. YANG CALLED AGAIN, NO RESPONSE. WILL CONTINUE TO TRY.
--- NOTE | 2019-03-16 01:00 | NUR ---
PT SLEEPING AT THIS TIME. NO S/S OF DISTRESS NOTED, CALL LIGHT IN REACH.
[2019-03-16 01:02] VITALS: BP 111/64
[2019-03-16] MEDS ORDERED: GLUCOPHAGE500 M1 PO (01:29)
--- NOTE | 2019-03-16 03:00 | NUR ---
PT SLEEPING. IV FLUIDS INFUSING WITHOUT DIFFICULTY. CALL LIGHT IN REACH
--- NOTE | 2019-03-16 07:06 | NUR ---
consult called to lisset
--- NOTE | 2019-03-16 09:00 | NUR ---
Senior Editor in to talk to patient. Patient states lives at home alone with her family checking in on her. There are 0 steps in the home. There is an elevator. Physician: Dr. Kj Gibson Pharmacy: [facility] Home health services: [facility] Patient's level of ADLs: independent Patient has working utilities: yes DME: nebulizer Follow-up physician's appointment after d/c: she prefers to make her own follow up appt after discharge Does patient want to access PORTAL?: no Discharge plan discussed with patient and her daughter who is at her bedside. She lives at home alone with her family checking in on her. She is independent in her ADLs and ambulation. Discussed short term SNF and she refuses. Discussed home health care services and she currently has [facility] and would like to resume those services upon discharge. When medically stable she will be discharged to home with the resumption of her [facility] care services. Her daughter will provide transportation on discharge. ALESSIA HUBBARD
[2019-03-16 12:00] VITALS: BP 135/68
[2019-03-16 16:00] VITALS: BP 116/68
--- NOTE | 2019-03-16 17:30 | NUR ---
PATIENT C/O MIGRAINE WITH ACCOMPANYING NAUSEA. PHONED DR. YANG, TELEPHONE ORDER OF 1 TIME TORADOL AND ZOFRAN PRN (SEE EMAR) WAS PERACRIBED. PATIENT STATES FEELING BETTER AFTER TORADOL AND HAS NOT REQUESTED ZOFRAN.
[2019-03-16 20:00] VITALS: BP 116/68
--- NOTE | 2019-03-16 20:10 | NUR ---
PT RESTING IN BED AWAKE, A&OX3, PLEASANT AN COOPERATIVVE WITH STAFF. RESP NONLABORED. NO ACUTE DISTRESS NOTED. HEPLOCKS PATENT. MEDICATED WITH ZOFRAN PER PRN ORDER FOR C/O NAUSEA.
--- NOTE | 2019-03-16 21:15 | NUR ---
ZOFRAN EFFECTIVE FOR NAUSEA. MEDICTED WITH VALIUM PER PRN ORDER FOR C/O ANXIETY.
[2019-03-17] VITALS: BP 110/67
--- NOTE | 2019-03-17 03:45 | NUR ---
24 HR chart check completed.
[2019-03-17 06:18] LABS: HEMATOCRIT 40.1 % (37.0-47.0); HEMOGLOBIN 12.7 g/dl (12.0-16.0); MEAN CELL VOLUME 95.7 fl (81.0-99.0); MEAN CORPUSCULAR HGB 30.3 pg (27.0-31.0); MEAN CORPUSCULAR HGB CONC 31.7 g/dl (33.0-37.0); PLATELET COUNT AUTOMATED 383 10*3/uL (130-400); RED BLOOD COUNT 4.19 10*6/uL (4.10-5.10); RED CELL DISTRI WIDTH 14.6 % (0-14.5); WHITE BLOOD COUNT 14.1 10*3/uL (4.8-10.8)
[2019-03-17 06:24] LABS: CREATININE 1.31 mg/dL (0.55-1.02); POTASSIUM 4.3 mmol/L (3.5-5.1)
[2019-03-17 06:56] LABS: ATYPICAL LYMPHS 1 % (0-0); BASOPHILS 2 % (0-1); PLATELET SUFFICIENCY NORMAL (NORMAL); TOTAL CELLS COUNTED 100 #CELLS
[2019-03-17 08:00] VITALS: BP 102/80
--- NOTE | 2019-03-17 10:57 | NUR ---
INFORMED SIGNED CONSENT OBTAINED FOR LEXISCAN STRESS TEST WITH DR YANG. RESTING EKG NSR HR 83 BP 122/78. T WAVE INVERSION AVR V1. PULSE OX 93% LUNGS CLEAR. PT COMPLETED ONE MINUTE OF A LEXISCAN PROTOCOL WITH PT RECEIVING LEXSICAN 0.4MG IV OVER 10 SECONDS. NO ARRHYTHMIAS NOTED. NON DIAGNOSTIC ST CHANGES SEEN. PT C/O A WEIRD FEELING WITH INJECTION. LAST RECOVERY HR OF 114 BP 108/70. PT IN STABLE CONDITION, AWAITING NUCLEAR IMAGES.
[2019-03-17 12:00] VITALS: BP 134/74
--- NOTE | 2019-03-17 12:32 | NUR ---
DILAUDID GIVEN FOR C/O MIGRAINE. WILL MONITOR.
--- NOTE | 2019-03-17 12:36 | NUR ---
VALIUM GIVEN FOR C/O ANXIETY. WILL MONITOR.
--- NOTE | 2019-03-17 12:46 | NUR ---
CALLED DR. COSTA WITH ORTHOSTATIC BP RESULTS.
--- NOTE | 2019-03-17 13:40 | NUR ---
DLAUDID NOT EFFECTIVE PER PT.
--- NOTE | 2019-03-17 13:40 | NUR ---
VALIUM EFFECTIVE PER PT.
--- NOTE | 2019-03-17 14:21 | NUR ---
ZOFRAN GIVEN FOR C/O NAUSEA. WILL MONITOR.
[2019-03-17 16:00] VITALS: BP 112/63
--- NOTE | 2019-03-17 16:49 | NUR ---
TORADOL GIVEN FOR C/O MIGRAINE. WILL MONITOR.
--- NOTE | 2019-03-17 17:57 | NUR ---
TORADOL EFFECTIVE PER PT.
[2019-03-17 20:00] VITALS: BP 127/70
[2019-03-18] VITALS: BP 104/63
--- NOTE | 2019-03-18 05:00 | NUR ---
24 HR chart check completed.
[2019-03-18 06:30] LABS: CREATININE 1.3 mg/dL (0.55-1.02); POTASSIUM 4.4 mmol/L (3.5-5.1)
[2019-03-18 08:00] VITALS: BP 143/78
--- NOTE | 2019-03-18 08:07 | NUR ---
VALIUM GIVEN FOR C/O ANXIETY. WILL MONITOR.
--- NOTE | 2019-03-18 09:10 | NUR ---
VALIUM EFFECTIVE PER PT.
[2019-03-18 12:00] VITALS: BP 148/83
--- NOTE | 2019-03-18 12:23 | NUR ---
ZOFRAN GIVEN FOR C/O NAUSEA, TORADOL GIVEN FOR C/O MIGRAINE. WILL MONITOR.
--- NOTE | 2019-03-18 13:30 | NUR ---
TORADOL AND ZOFRAN EFFECTIVE PER PT.
[2019-03-18 16:00] VITALS: BP 153/84
--- NOTE | 2019-03-18 17:13 | NUR ---
VALIUM GIVEN FOR C/O ANXIETY. WILL MONITOR.
[2019-03-18 20:00] VITALS: BP 151/80
[2019-03-19] VITALS: BP 113/55
--- NOTE | 2019-03-19 05:13 | NUR ---
PATIENT MEDICATED WITH ZOFRAN FOR C/O NAUSEA. WILL MONITOR
--- NOTE | 2019-03-19 05:26 | NUR ---
PATIENT MEDICATED WITH VALIUM FOR ANXIETY. WILL CONTINUE TO MONITOR
[2019-03-19 07:20] LABS: CREATININE 1.26 mg/dL (0.55-1.02); POTASSIUM 4.4 mmol/L (3.5-5.1)
[2019-03-19 08:00] VITALS: BP 164/90
[2019-03-19 12:00] VITALS: BP 155/76
[2019-03-19 16:00] VITALS: BP 127/70
[2019-03-19 20:00] VITALS: BP 138/70
[2019-03-20] VITALS: BP 143/82
[2019-03-20 07:28] VITALS: BP 140/60
--- NOTE | 2019-03-20 07:40 | NUR ---
PT WAS ORDERING BREAKFAST UPON ENTERING THE ROOM. PT STATES SHE IS DOING UCH BETTER. SUJEY HUANG [facility]
--- NOTE | 2019-03-20 08:45 | NUR ---
Pt complains of upset stomach after eating her breakfast. Pt medicines are due soon so jethro kota was given for relief. Selma Miranda spnrcc
--- NOTE | 2019-03-20 09:00 | NUR ---
Research Administrator in to see patient. No new needs or request at this time. When medically stable she will be discharged to home with the resumption of her [facility].
--- NOTE | 2019-03-20 09:34 | NUR ---
PT IS RESTING IN BED COMFORTABLY. PT STOMACH PAIN WAS RELIEVED WITH LATISHA FABIAN. SUJEY HUANG SPCC
[2019-03-20 11:52] VITALS: BP 158/82
--- NOTE | 2019-03-20 11:59 | NUR ---
PT BLOOD PRESSURE WAS 158/82, NURSE NOTIFIED. PT WAS WATCHING TV. NO COMPLAINTS AT THIS TIME. SUJEY HUANG CHRISTELLECC
--- NOTE | 2019-03-20 12:08 | NUR ---
PT AMBULATING IN CUE[place]AS FOR HOME O2 ASSESS. PT STATES SHE FEELS WEAKNESS IN HER LEGS AND "NOT RIGHT" HR 120'S BP 149/92
--- NOTE | 2019-03-20 12:10 | NUR ---
DR SPAULDING'S OFFICE CALLED, WILL AWAIT A RETURN CALL
--- NOTE | 2019-03-20 12:24 | NUR ---
DR DOMINGUEZ CALLED RE: PT ELEVATED BP AND HR. ORDERS RECEIVED TO RESTART HOME DOSE OF PROPANALOL.
--- NOTE | 2019-03-20 13:02 | NUR ---
IV SITES D/C, BOTH SITES ASYMTOMATIC. ODD JOB LABORER DISCONTINUED. SUJEY HUANG SPNRCC
--- NOTE | 2019-03-20 13:04 | NUR ---
Discharge instructions reviewed with patient. Patient receptive and verbalizes understanding. Follow-up care arranged. Written instructions given to patient SUJEY PLUMMER
--- NOTE | 2019-03-20 13:28 | NUR ---
Faxed home health resumption to [facility]
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
--- NOTE | 2019-03-20 13:42 | NUR ---
DISCHARGE PT TO CAR VIA W/C IN CARE OF FRIEND, STUDENT ACCOMPANIED PT TO CAR, CONDITION STABLE SUJEY HUANG SPNRCC
== END 2019-03-20 13:42 | disposition home or self-care (01) | DRG 189 ==
LOC: ED 19:33 → EDHOLD 21:42 → 4E 21:42
PROVIDERS: Emergency Medicine; ADMIT Internal Medicine
PROC: 4A02XM4 Measurement of Cardiac Total Activity, External Approach (ICD-10-PCS; principal; 2019-03-17)
PROC: 3E073KZ Introduction of Other Diagnostic Substance into Coronary Artery, Percutaneous Approach (ICD-10-PCS; principal; 2019-03-17)
DX: J96.20 Acute and chronic respiratory failure, unspecified whether with hypoxia or hypercapnia (principal); N17.9 Acute kidney failure, unspecified; F33.1 Major depressive disorder, recurrent, moderate; J43.2 Centrilobular emphysema; I95.1 Orthostatic hypotension; I12.9 Hypertensive chronic kidney disease with stage 1 through stage 4 chronic kidney disease, or unspecified chronic kidney disease; N18.3 Chronic kidney disease, stage 3 (moderate); G40.909 Epilepsy, unspecified, not intractable, without status epilepticus; F41.1 Generalized anxiety disorder; K21.0 Gastro-esophageal reflux disease with esophagitis; E11.65 Type 2 diabetes mellitus with hyperglycemia; F51.01 Primary insomnia; E11.22 Type 2 diabetes mellitus with diabetic chronic kidney disease; G89.29 Other chronic pain; M54.5 Low back pain; I25.10 Atherosclerotic heart disease of native coronary artery without angina pectoris; F17.210 Nicotine dependence, cigarettes, uncomplicated; G43.909 Migraine, unspecified, not intractable, without status migrainosus; D72.829 Elevated white blood cell count, unspecified; Z88.8 Allergy status to other drugs, medicaments and biological substances; Z85.3 Personal history of malignant neoplasm of breast; Z91.030 Bee allergy status; Z79.82 Long term (current) use of aspirin; Z79.899 Other long term (current) drug therapy; Z86.73 Personal history of transient ischemic attack (TIA), and cerebral infarction without residual deficits; Z92.21 Personal history of antineoplastic chemotherapy; Z90.49 Acquired absence of other specified parts of digestive tract; Z90.710 Acquired absence of both cervix and uterus; Z90.13 Acquired absence of bilateral breasts and nipples; Z80.0 Family history of malignant neoplasm of digestive organs; Z82.5 Family history of asthma and other chronic lower respiratory diseases

== ENCOUNTER 2019-04-06 15:42 | Emergency (ER) | payer OTHER ==
[~2019-04-06] VITALS: Ht 160 cm; Wt 72.6 kg
[~2019-04-06 15:42] MED LIST changes: +PRINIVIL10 MG PO; +PROPRANOLOL ER80 MG PO
[2019-04-06 16:08] LABS: HEMATOCRIT 41.3 % (37.0-47.0); HEMOGLOBIN 13.4 g/dl (12.0-16.0); MEAN CELL VOLUME 93.7 fl (81.0-99.0); MEAN CORPUSCULAR HGB 30.4 pg (27.0-31.0); MEAN CORPUSCULAR HGB CONC 32.4 g/dl (33.0-37.0); MEAN PLATELET VOLUME 9.8 fl (9.6-12.3); PLATELET COUNT AUTOMATED 370 10*3/uL (130-400); RED BLOOD COUNT 4.41 10*6/uL (4.10-5.10); RED CELL DISTRI WIDTH 14.4 % (0-14.5); WHITE BLOOD COUNT 14.7 10*3/uL (4.8-10.8)
[2019-04-06 16:19] LABS: ACT PARTIAL THROMBO TIME 26.5 SECONDS (20.0-32.1); INTERNATIONAL NORM RATIO 0.8 (2.0-3.5)
[2019-04-06 16:25] LABS: ALBUMIN 3.7 gm/dl (3.1-4.5); ALKALINE PHOSPHATASE 144 U/L (45-117); BUN 24 mg/dl (7-24); CHLORIDE 103 mmol/L (98-107); CREATININE 1.36 mg/dL (0.55-1.02); SGOT/AST 14 IU/L (3-35); SGPT/ALT 42 U/L (12-78); SODIUM 134 mmol/L (136-145); TOTAL PROTEIN 7.5 gm/dL (6.4-8.2)
[2019-04-06 16:27] LABS: TROPONIN I < 0.015 ng/ml (<0.045)
[2019-04-06 16:29] LABS: TOTAL CELLS COUNTED 100 #CELLS
[2019-04-06 16:30] LABS: PLATELET SUFFICIENCY NORMAL (NORMAL)
[2019-04-06 17:26] LABS: URINE AMPHETAMINES < 1000 (1000ng/ml); URINE BARBITURATES < 200 (200ng/ml); URINE BENZODIAZEPINES > 200 (200ng/ml); URINE CANNABINOIDS (THC) < 50 (50ng/ml); URINE COCAINE < 300 (300ng/ml); URINE METHADONE < 300 (300ng/ml); URINE OPIATES < 300 (300ng/ml)
[2019-04-06 17:27] LABS: BILIRUBIN NEGATIVE (NEGATIVE); BLOOD NEGATIVE (NEGATIVE); CLARITY SL CLOUDY (CLEAR); COLOR YELLOW (YELLOW); GLUCOSE 3+ (NEGATIVE); KETONE NEGATIVE (NEGATIVE); LEUKO ESTERASE NEGATIVE (NEGATIVE); NITRITE NEGATIVE (NEGATIVE); UROBILINOGEN 0.2 E.U./dl (0.2-1.0); WBC 16-20 wbc/hpf (0-5)
[2019-04-06 17:28] LABS: BACTERIA TRACE; EPITHELIAL CELLS 51-100
[2019-04-06 17:32] LABS: URINE PHENCYCLIDINE < 25 (25ng/ml)
[2019-04-07] MEDS ORDERED: INVOKAMET 150-1 EAC1 PO (20:40)
[2019-04-07] MEDS ORDERED: METHOCARBAMOL500 M1 PO (21:04)
== END 2019-04-06 19:07 | disposition left against medical advice (07) ==
LOC: ED 15:42
PROVIDERS: Emergency Medicine; Nurse Practitioner Family
DX: R55 Syncope and collapse (principal); R53.1 Weakness; I25.10 Atherosclerotic heart disease of native coronary artery without angina pectoris; F31.9 Bipolar disorder, unspecified; I12.9 Hypertensive chronic kidney disease with stage 1 through stage 4 chronic kidney disease, or unspecified chronic kidney disease; E11.22 Type 2 diabetes mellitus with diabetic chronic kidney disease; N18.3 Chronic kidney disease, stage 3 (moderate); J44.9 Chronic obstructive pulmonary disease, unspecified; G43.909 Migraine, unspecified, not intractable, without status migrainosus; I48.91 Unspecified atrial fibrillation; Z91.030 Bee allergy status; Z88.8 Allergy status to other drugs, medicaments and biological substances; Z79.4 Long term (current) use of insulin; Z79.84 Long term (current) use of oral hypoglycemic drugs; Z79.2 Long term (current) use of antibiotics; F17.200 Nicotine dependence, unspecified, uncomplicated; Z90.49 Acquired absence of other specified parts of digestive tract; Z90.710 Acquired absence of both cervix and uterus

== ENCOUNTER 2019-04-07 16:53 | Inpatient (IN) | payer OTHER ==
[~2019-04-07] VITALS: Ht 162.6 cm; Wt 75.9 kg
[2019-04-07 16:53] VITALS: BP 96/57
[2019-04-07 17:22] VITALS: BP 100/54
[2019-04-07 17:54] LABS: HEMATOCRIT 40.1 % (37.0-47.0); MEAN CELL VOLUME 94.8 fl (81.0-99.0); MEAN CORPUSCULAR HGB 30.7 pg (27.0-31.0); MEAN CORPUSCULAR HGB CONC 32.4 g/dl (33.0-37.0); MEAN PLATELET VOLUME 9.8 fl (9.6-12.3); PLATELET COUNT AUTOMATED 354 10*3/uL (130-400); RED BLOOD COUNT 4.23 10*6/uL (4.10-5.10); RED CELL DISTRI WIDTH 14.5 % (0-14.5); WHITE BLOOD COUNT 20.6 10*3/uL (4.8-10.8)
[2019-04-07 18:05] LABS: ACT PARTIAL THROMBO TIME 24.4 SECONDS (20.0-32.1); INTERNATIONAL NORM RATIO 0.8 (2.0-3.5)
[2019-04-07 18:12] LABS: ALBUMIN 3.5 gm/dl (3.1-4.5); ALKALINE PHOSPHATASE 134 U/L (45-117); BUN 19 mg/dl (7-24); CHLORIDE 103 mmol/L (98-107); CREATININE 1.33 mg/dL (0.55-1.02); LIPASE 162 U/L (73-393); POTASSIUM 3.5 mmol/L (3.5-5.1); SGOT/AST 14 IU/L (3-35); SGPT/ALT 42 U/L (12-78); SODIUM 136 mmol/L (136-145); TOTAL PROTEIN 7.5 gm/dL (6.4-8.2)
[2019-04-07 18:13] LABS: ATYPICAL LYMPHS 5 % (0-0); PLATELET SUFFICIENCY NORMAL (NORMAL); TOTAL CELLS COUNTED 100 #CELLS
[2019-04-07 18:15] LABS: ACETAMINOPHEN (TYLENOL) < 5.0 ug/ml (10-30); ETHYL ALCOHOL < 3.0 mg/dl (<3); TROPONIN I < 0.015 ng/ml (<0.045)
[2019-04-07 18:35] VITALS: BP 111/59
[2019-04-07 18:44] LABS: BILIRUBIN NEGATIVE (NEGATIVE); BLOOD NEGATIVE (NEGATIVE); CLARITY CLEAR (CLEAR); COLOR YELLOW (YELLOW); GLUCOSE 3+ (NEGATIVE); KETONE TRACE (NEGATIVE); LEUKO ESTERASE NEGATIVE (NEGATIVE); NITRITE NEGATIVE (NEGATIVE); SPECIFIC GRAVITY 1.005 (1.005-1.030); UROBILINOGEN 0.2 E.U./dl (0.2-1.0)
[2019-04-07 18:46] LABS: URINE AMPHETAMINES < 1000 (1000ng/ml); URINE BARBITURATES < 200 (200ng/ml); URINE BENZODIAZEPINES > 200 (200ng/ml); URINE CANNABINOIDS (THC) < 50 (50ng/ml); URINE COCAINE < 300 (300ng/ml); URINE METHADONE < 300 (300ng/ml); URINE OPIATES < 300 (300ng/ml); URINE PHENCYCLIDINE < 25 (25ng/ml)
[2019-04-07 18:50] LABS: BACTERIA 2+; RBC 0-2 rbc/hpf (0-2)
[2019-04-07 19:33] VITALS: BP 104/51
[2019-04-07 20:29] VITALS: BP 124/57; BP 147/57
[2019-04-07] MEDS ORDERED: INVOKAMET 150-1 EAC1 PO (20:40)
[2019-04-07] MEDS ORDERED: METHOCARBAMOL500 M1 PO (21:04)
[2019-04-08] VITALS: BP 104/66
[2019-04-08 06:17] LABS: HEMATOCRIT 37.5 % (37.0-47.0); HEMOGLOBIN 11.8 g/dl (12.0-16.0); MEAN CELL VOLUME 94.9 fl (81.0-99.0); MEAN CORPUSCULAR HGB 29.9 pg (27.0-31.0); MEAN CORPUSCULAR HGB CONC 31.5 g/dl (33.0-37.0); MEAN PLATELET VOLUME 10.1 fl (9.6-12.3); PLATELET COUNT AUTOMATED 319 10*3/uL (130-400); RED BLOOD COUNT 3.95 10*6/uL (4.10-5.10); RED CELL DISTRI WIDTH 14.6 % (0-14.5); WHITE BLOOD COUNT 13.6 10*3/uL (4.8-10.8)
[2019-04-08 07:08] LABS: ATYPICAL LYMPHS 5 % (0-0); BASOPHILS 1 % (0-1); PLATELET SUFFICIENCY NORMAL (NORMAL); TOTAL CELLS COUNTED 100 #CELLS
[2019-04-08 08:00] VITALS: BP 152/90
[2019-04-08 12:00] VITALS: BP 143/78
[2019-04-08 16:00] VITALS: BP 160/80
[2019-04-08 20:00] VITALS: BP 140/57
[2019-04-09] VITALS: BP 134/75
[2019-04-09 07:10] LABS: HEMATOCRIT 39.5 % (37.0-47.0); HEMOGLOBIN 12.5 g/dl (12.0-16.0); MEAN CELL VOLUME 93.6 fl (81.0-99.0); MEAN CORPUSCULAR HGB 29.6 pg (27.0-31.0); MEAN CORPUSCULAR HGB CONC 31.6 g/dl (33.0-37.0); MEAN PLATELET VOLUME 9.8 fl (9.6-12.3); PLATELET COUNT AUTOMATED 320 10*3/uL (130-400); RED BLOOD COUNT 4.22 10*6/uL (4.10-5.10); RED CELL DISTRI WIDTH 14.6 % (0-14.5); WHITE BLOOD COUNT 12.4 10*3/uL (4.8-10.8)
[2019-04-09 07:26] LABS: BUN 17 mg/dl (7-24); CHLORIDE 110 mmol/L (98-107); POTASSIUM 4.1 mmol/L (3.5-5.1); SODIUM 141 mmol/L (136-145)
[2019-04-09 07:41] LABS: ATYPICAL LYMPHS 5 % (0-0); BASOPHILS 1 % (0-1); TOTAL CELLS COUNTED 100 #CELLS
[2019-04-09 07:42] LABS: PLATELET SUFFICIENCY NORMAL (NORMAL)
[2019-04-09 08:00] VITALS: BP 148/90
[2019-04-09 12:00] VITALS: BP 145/73
[2019-04-09 16:00] VITALS: BP 125/67
[2019-04-09 20:00] VITALS: BP 124/61
[2019-04-10] VITALS: BP 131/63
[2019-04-10 06:27] LABS: BASO # 0.1 10*3/uL (0.0-0.1); EOS # 0.5 10*3/uL (0.0-0.4); EOS % 3.5 % (1.0-4.0); HEMATOCRIT 40.6 % (37.0-47.0); HEMOGLOBIN 12.9 g/dl (12.0-16.0); LYMPH % 30.9 % (27.0-41.0); MEAN CELL VOLUME 93.8 fl (81.0-99.0); MEAN CORPUSCULAR HGB 29.8 pg (27.0-31.0); MEAN CORPUSCULAR HGB CONC 31.8 g/dl (33.0-37.0); MEAN PLATELET VOLUME 9.7 fl (9.6-12.3); MONO # 0.8 10*3/uL (0.1-1.0); MONO % 6.3 % (3.0-9.0); NEUT # 7.4 10*3/uL (2.3-7.9); NEUT % 57.4 % (47.0-73.0); NUCLEATED RED BLOOD CELL 0.2 % (0.0-0.0); PLATELET COUNT AUTOMATED 348 10*3/uL (130-400); RED BLOOD COUNT 4.33 10*6/uL (4.10-5.10); RED CELL DISTRI WIDTH 14.5 % (0-14.5); WHITE BLOOD COUNT 12.9 10*3/uL (4.8-10.8)
[2019-04-10 06:54] LABS: BUN 19 mg/dl (7-24); CHLORIDE 101 mmol/L (98-107); POTASSIUM 4.1 mmol/L (3.5-5.1); SODIUM 135 mmol/L (136-145)
[2019-04-10] MEDS ORDERED: TOPROL XL25 MG PO (08:23)
[2019-04-10] MEDS ORDERED: CEFUROXIME AXE250 MG PO (08:23)
[2019-04-10] MEDS ORDERED: MIDODRINE HCL5 M1 PO (08:23)
== END 2019-04-10 09:05 | disposition home health service (06) | DRG 56 ==
LOC: ED 16:53 → EDHOLD 19:21 → 4E 19:21
PROVIDERS: Physician Assistant; ADMIT Internal Medicine
DX: G90.3 Multi-system degeneration of the autonomic nervous system (principal); N17.0 Acute kidney failure with tubular necrosis; D47.9 Neoplasm of uncertain behavior of lymphoid, hematopoietic and related tissue, unspecified; E11.43 Type 2 diabetes mellitus with diabetic autonomic (poly)neuropathy; I10 Essential (primary) hypertension; F31.9 Bipolar disorder, unspecified; G40.409 Other generalized epilepsy and epileptic syndromes, not intractable, without status epilepticus; G89.29 Other chronic pain; M54.5 Low back pain; D72.829 Elevated white blood cell count, unspecified; F51.01 Primary insomnia; F41.1 Generalized anxiety disorder; R62.7 Adult failure to thrive; E11.65 Type 2 diabetes mellitus with hyperglycemia; J44.9 Chronic obstructive pulmonary disease, unspecified; F17.210 Nicotine dependence, cigarettes, uncomplicated; Z85.3 Personal history of malignant neoplasm of breast; Z71.6 Tobacco abuse counseling; Z88.8 Allergy status to other drugs, medicaments and biological substances; Z91.030 Bee allergy status; Z90.13 Acquired absence of bilateral breasts and nipples; Z90.49 Acquired absence of other specified parts of digestive tract; Z90.711 Acquired absence of uterus with remaining cervical stump; Z80.0 Family history of malignant neoplasm of digestive organs; Z82.5 Family history of asthma and other chronic lower respiratory diseases; Z91.19 Patient's noncompliance with other medical treatment and regimen; Z68.28 Body mass index [BMI] 28.0-28.9, adult

== ENCOUNTER → 2019-04-18 | Outpatient (CLI) | payer OTHER ==
[~2019-04-18] MED LIST changes: +CEFUROXIME AXE250 MG PO; +INVOKAMET 150-1 EAC1 PO; +METHOCARBAMOL500 M1 PO; +MIDODRINE HCL5 M1 PO; +TOPROL XL25 MG PO
[2019-04-18 11:57] LABS: HEMATOCRIT 40.4 % (37.0-47.0); MEAN CELL VOLUME 92.4 fl (81.0-99.0); MEAN CORPUSCULAR HGB 29.7 pg (27.0-31.0); MEAN CORPUSCULAR HGB CONC 32.2 g/dl (33.0-37.0); MEAN PLATELET VOLUME 9.5 fl (9.6-12.3); PLATELET COUNT AUTOMATED 373 10*3/uL (130-400); RED BLOOD COUNT 4.37 10*6/uL (4.10-5.10); RED CELL DISTRI WIDTH 14.1 % (0-14.5)
[2019-04-18 12:22] LABS: ATYPICAL LYMPHS 2 % (0-0); TOTAL CELLS COUNTED 100 #CELLS
[2019-04-18 12:23] LABS: PLATELET SUFFICIENCY NORMAL (NORMAL); POLYCHROMASIA SLIGHT
[2019-04-18 12:26] LABS: ALBUMIN 3.5 gm/dl (3.1-4.5); ALKALINE PHOSPHATASE 131 U/L (45-117); BUN 14 mg/dl (7-24); CHLORIDE 103 mmol/L (98-107); CREATININE 1.03 mg/dL (0.55-1.02); POTASSIUM 3.5 mmol/L (3.5-5.1); SGOT/AST 35 IU/L (3-35); SGPT/ALT 53 U/L (12-78); SODIUM 135 mmol/L (136-145); TOTAL PROTEIN 7.5 gm/dL (6.4-8.2)
== END | disposition home or self-care (01) ==
LOC: LAB 11:33
PROVIDERS: Internal Medicine
DX: I10 Essential (primary) hypertension (principal); G40.909 Epilepsy, unspecified, not intractable, without status epilepticus; D72.829 Elevated white blood cell count, unspecified

== ENCOUNTER 2019-06-23 14:10 | Emergency (ER) | payer OTHER ==
[~2019-06-23] VITALS: Ht 160 cm; Wt 71.2 kg
[2019-06-23] MEDS ORDERED: DOXYCYCLINE100 M3 PO (14:37)
== END 2019-06-23 15:22 | disposition home or self-care (01) ==
LOC: ED 14:10
DX: L73.9 Follicular disorder, unspecified (principal); E11.9 Type 2 diabetes mellitus without complications; I10 Essential (primary) hypertension; J44.9 Chronic obstructive pulmonary disease, unspecified; I48.91 Unspecified atrial fibrillation; F17.290 Nicotine dependence, other tobacco product, uncomplicated; Z91.030 Bee allergy status; Z88.8 Allergy status to other drugs, medicaments and biological substances; Z79.2 Long term (current) use of antibiotics; Z79.899 Other long term (current) drug therapy; Z79.82 Long term (current) use of aspirin; Z79.4 Long term (current) use of insulin; Z90.49 Acquired absence of other specified parts of digestive tract; Z90.711 Acquired absence of uterus with remaining cervical stump; Z85.3 Personal history of malignant neoplasm of breast

== ENCOUNTER 2019-07-02 11:24 | Emergency (ER) | payer OTHER ==
[~2019-07-02] VITALS: Ht 160 cm; Wt 70.8 kg
[~2019-07-02 11:24] MED LIST changes: +DOXYCYCLINE100 M3 PO
[2019-07-02 12:24] LABS: HEMATOCRIT 41.3 % (37.0-47.0); MEAN CELL VOLUME 85.5 fl (81.0-99.0); MEAN CORPUSCULAR HGB CONC 32.7 g/dl (33.0-37.0); MEAN PLATELET VOLUME 10.1 fl (9.6-12.3); PLATELET COUNT AUTOMATED 296 10*3/uL (130-400); RED BLOOD COUNT 4.83 10*6/uL (4.10-5.10); RED CELL DISTRI WIDTH 16.9 % (0-14.5); WHITE BLOOD COUNT 16.3 10*3/uL (4.8-10.8)
[2019-07-02 12:39] LABS: ALBUMIN 3.3 gm/dl (3.1-4.5); ALKALINE PHOSPHATASE 125 U/L (45-117); BUN 21 mg/dl (7-24); CHLORIDE 102 mmol/L (98-107); CREATININE 1.02 mg/dL (0.55-1.02); SGOT/AST 25 IU/L (3-35); SGPT/ALT 37 U/L (12-78); SODIUM 131 mmol/L (136-145)
[2019-07-02 13:05] LABS: ATYPICAL LYMPHS 3 % (0-0); BASOPHILS 1 % (0-1); PLATELET SUFFICIENCY NORMAL (NORMAL); TOTAL CELLS COUNTED 100 #CELLS
== END 2019-07-02 15:58 | disposition home or self-care (01) ==
LOC: ED 11:24
PROVIDERS: Emergency Medicine
DX: G43.909 Migraine, unspecified, not intractable, without status migrainosus (principal); F41.9 Anxiety disorder, unspecified; I25.10 Atherosclerotic heart disease of native coronary artery without angina pectoris; F31.9 Bipolar disorder, unspecified; I12.9 Hypertensive chronic kidney disease with stage 1 through stage 4 chronic kidney disease, or unspecified chronic kidney disease; E11.22 Type 2 diabetes mellitus with diabetic chronic kidney disease; N18.3 Chronic kidney disease, stage 3 (moderate); J44.9 Chronic obstructive pulmonary disease, unspecified; I48.91 Unspecified atrial fibrillation; Z91.030 Bee allergy status; Z88.8 Allergy status to other drugs, medicaments and biological substances; Z79.899 Other long term (current) drug therapy; Z79.2 Long term (current) use of antibiotics; Z90.49 Acquired absence of other specified parts of digestive tract; Z90.710 Acquired absence of both cervix and uterus

== ENCOUNTER 2019-07-05 12:09 | Inpatient (IN) | payer OTHER ==
[~2019-07-05] VITALS: Ht 160 cm; Wt 85.8 kg
[2019-07-05 12:16] VITALS: BP 108/73
[2019-07-05 12:56] LABS: BASO # 0.1 10*3/uL (0.0-0.1); BASO % 0.4 % (0.0-1.0); EOS # 0.3 10*3/uL (0.0-0.4); EOS % 1.3 % (1.0-4.0); HEMATOCRIT 41.1 % (37.0-47.0); LYMPH # 3.1 10*3/uL (1.3-4.4); LYMPH % 14.9 % (27.0-41.0); MEAN CELL VOLUME 85.6 fl (81.0-99.0); MEAN CORPUSCULAR HGB 28.5 pg (27.0-31.0); MEAN CORPUSCULAR HGB CONC 33.3 g/dl (33.0-37.0); MEAN PLATELET VOLUME 10.4 fl (9.6-12.3); MONO # 0.8 10*3/uL (0.1-1.0); MONO % 3.8 % (3.0-9.0); NEUT # 16.3 10*3/uL (2.3-7.9); PLATELET COUNT AUTOMATED 289 10*3/uL (130-400); RED CELL DISTRI WIDTH 17.7 % (0-14.5); WHITE BLOOD COUNT 20.6 10*3/uL (4.8-10.8)
[2019-07-05 13:08] LABS: ACT PARTIAL THROMBO TIME 21.9 SECONDS (20.0-32.1)
[2019-07-05 13:15] LABS: ALBUMIN 3.1 gm/dl (3.1-4.5); ALKALINE PHOSPHATASE 124 U/L (45-117); BUN 16 mg/dl (7-24); CHLORIDE 102 mmol/L (98-107); CREATININE 0.94 mg/dL (0.55-1.02); POTASSIUM 3.8 mmol/L (3.5-5.1); SGOT/AST 11 IU/L (3-35); SGPT/ALT 28 U/L (12-78); SODIUM 134 mmol/L (136-145); TOTAL PROTEIN 7.2 gm/dL (6.4-8.2)
[2019-07-05 13:20] LABS: TROPONIN I < 0.015 ng/ml (<0.045)
[2019-07-05 14:01] LABS: BILIRUBIN 2+ (NEGATIVE); CLARITY CLOUDY (CLEAR); COLOR YELLOW (YELLOW); GLUCOSE 3+ (NEGATIVE)
[2019-07-05 14:02] LABS: BLOOD NEGATIVE (NEGATIVE); KETONE 3+ (NEGATIVE); LEUKO ESTERASE TRACE (NEGATIVE); NITRITE NEGATIVE (NEGATIVE); UROBILINOGEN 0.2 E.U./dl (0.2-1.0)
[2019-07-05 14:04] LABS: BACTERIA 3+; EPITHELIAL CELLS 41-50; RBC 21-30 rbc/hpf (0-2); WBC 31-40 wbc/hpf (0-5); YEAST 1+
[2019-07-05 16:19] VITALS: BP 110/68
[2019-07-05 17:14] VITALS: BP 136/82
--- NOTE | 2019-07-05 17:14 | NUR ---
A 53, admitted to , under the services of Dr. CELIA FRANCOIS,SHELBY Bustillo with a diagnosis of UTI, PANCREATITIS, SEPSIS. Chief complaint is ABDOMINAL PAIN, NAUSEA/VOMTING. Patient arrived via stretcher from ER. Monitor applied. Initial assessment completed. Vital signs taken and recorded. DR. CELIA FRANCOIS,SHELBY Bustillo notified of admission to the unit. Orders received. See assessment for past medical history, medications and allergies. Patient and/or family oriented to unit. [address] visitation policy reviewed. Clothing/patient valuable form completed. ANDREW PARKS
[2019-07-05] MEDS ORDERED: CYCLOBENZAPRIN7.5 M2 PO (17:50)
[2019-07-05] MEDS ORDERED: INDERAL XL80 MG PO (17:54)
[2019-07-05] MEDS ORDERED: LISINOPRIL10 M1 PO (17:56)
[2019-07-05] MEDS ORDERED: MIDODRINE HCL10 MG PO (17:59)
[2019-07-05] MEDS ORDERED: NEURONTIN300 MG PO (18:00)
[2019-07-05] MEDS ORDERED: OMEPRAZOLE MAGN20 MG PO (18:01)
--- NOTE | 2019-07-05 18:15 | NUR ---
SPOKE TO ABOUT NEW ADMISSION. DISCUSSED PATIENTS STATUS, LABS AND HOME MEDS. NEW ORDERS RECEIVED.
[2019-07-05] MEDS ORDERED: ZOLOFT100 MG PO (18:56)
[2019-07-05 20:00] VITALS: BP 122/72; BP 153/67
--- NOTE | 2019-07-05 23:13 | NUR ---
HELD PATIENT'S BUSPAR, VALIUM, ZOLOFT, AND SINEQUAN DUE TO PATIENT BEING DROWSY/LETHARGIC. PATIENT AROUSES EASILY BUT FALLS ASLEEP SHORTLY AFTER CONVERSATION. PATIENT STATED SHE JUST FEELS TIRED BECAUSE SHE HASNT SLEPT GOOD LATELY. WILL CONTINUE TO MONITOR.
[2019-07-06] VITALS: BP 125/68
--- NOTE | 2019-07-06 00:55 | NUR ---
PATIENT SLEEPING SOUNDLY. AWAKENS EASILY. REPOSITIONED IN BED. FLUIDS RUNNING. I ASKED THE PATIENT IF SHE HAS URINATED RECENTLY AND SHE STATED "NO". I ASKED HER IF SHE HAS BEEN URINATING AT HOME AND SHE AGAIN STATED "NO". WHEN I FURTHER QUESTIONED HER SHE STATED SHE HAS URINATED A LITTLE BIT BUT NOT A LOT. ABDOMEN IS SOFTLY DISTENDED. PATIENT STATED SHE DOES NOT FEEL PRESSURE LIKE SHE HAS TO URINATE BUT HER ABDOMEN IS SLIGHTLY TENDER TO TOUCH. WILL CONTINUE TO MONITOR.
--- NOTE | 2019-07-06 03:36 | NUR ---
PATIENT HAS NOT URINATED ALL SHIFT. I BLADDER SCANNED THE PATIENT AND GOT A READING OF [address] YANG. HE GAVE ORDERS TO STRAIGHT CATH EVERY SHIFT AND TO START THE PATIENT ON FLOMAX 0.4MG DAILY. WILL STRAIGHT CATH THE PATIENT AND PUT ORDERS IN.
--- NOTE | 2019-07-06 03:52 | NUR ---
STRAIGHT CATHETERIZED PATIENT. TOTAL OF 700 ML OUT. PATIENT TOLERATED WELL.
--- NOTE | 2019-07-06 07:00 | NUR ---
PATIENT LAYING IN BED AND STATES SHE IS IN A LOT OF PAIN. PATIENT STATES SHE HAS ABDOMINAL PAIN RATED 10/10. NO PAIN MED ON PATIENTS EMAR. WILL CALL FOR SOMETHING. ASSESSMENT COMPLETE. RESPS EASY AND REGULAR. CALL LIGHT IN REACH. WILL MONTIOR.
--- NOTE | 2019-07-06 07:56 | NUR ---
PHYSICAL THERAPY Screen received pt admitted with sepsis,pancreatitis and UTI. Please consult PT if pt has a decline in functional status from baseline thank you. Ester Pfeiffer PT
[2019-07-06 08:00] VITALS: BP 111/50
--- NOTE | 2019-07-06 08:08 | NUR ---
Nursing screen received and chart reviewed. Patient admitted from home for sepsis, UTI, and pancreatitis. If patient has a decline in ADLs, transfers, or functional mobility, please send OT orders. Thank you. Nydia Singletary, OTR/L
--- NOTE | 2019-07-06 08:30 | NUR ---
IN TO SEE PATIENT AND STATES HE IS GOING TO MAKE THE PATIENT NPO.
--- NOTE | 2019-07-06 08:45 | NUR ---
PATIENT WAS COMPLAING OF ABDOMINAL PAIN. INFORMED. NEW ORDERS RECEIVED. PATIENT MEDICATED WITH PRN DILAUDID PER ORDER. WILL ASSESS EFFECTIVENESS.
--- NOTE | 2019-07-06 09:30 | NUR ---
Protein Specialist in to talk to patient. Patient states lives at home alone with her family checking in on her. There are 0 steps in the home. There is an elevator. Physician: Dr. Kj Gibson Pharmacy: [facility] health services: she would like to have [facility] on discharge as she has had them in the past Patient's level of ADLs: minimal assistance Patient has working utilities: yes DME: nebulizer, wants a walker (notified Dr. Gibson) Follow-up physician's appointment after d/c: she prefers to make her own follow up appt after discharge Does patient want to access PORTAL?: no Discharge plan discussed with patient. She lives at home alone with her family checking in on her. She states she is independent in her ADLs and would like a walker to help with her ambulation. Dr. Gibson notified. Discussed short term SNF and she refuses. Discussed home health care services and she would like [facility] as she has had them in the past. When medically stable she will be discharged to home with [facility] care services. She states her daughter will provide transportation on discharge. ALESSIA HUBBARD
--- NOTE | 2019-07-06 09:45 | NUR ---
PATIENT SLEEPING. RESPS EASY AND REGULAR. PAIN MEDICATIONS SEEMS TO BE EFFECTIVE.
--- NOTE | 2019-07-06 10:30 | NUR ---
Discussed continuation/discontinuation of monitor with Dr. Gibson. New orders received to discontinue monitor.
[2019-07-06 12:00] VITALS: BP 120/67
--- NOTE | 2019-07-06 13:14 | NUR ---
Faxed front wheeled walker prescription faxed to [facility]
--- NOTE | 2019-07-06 14:00 | NUR ---
PATIENT HAS NOT VOIDED YET MY SHIFT. STRAIGHT CATHED AT THIS TIME PER ORDERS AND GOT 500 CC OUT.
[2019-07-06 16:00] VITALS: BP 118/68
--- NOTE | 2019-07-06 16:04 | NUR ---
Nutritional Support Services Note: Pt is NPO at this time dx of pancreatitis. Will follow for advancment of PO intake. Vicky George Rdn Ld
--- NOTE | 2019-07-06 16:42 | NUR ---
PATIENT MEDICATED WITH PRN DILAUDID FOR CO ABDOMINAL PAIN RATED AN 8/10 AT THIS TIME. WILL ASSESS EFFECTIVENESS.
--- NOTE | 2019-07-06 17:42 | NUR ---
PATIENT SLEEPING. NO SIGNS OR SYMPTOMS OF DISTRESS NOTED. DILAUDID EFFECTIVE.
--- NOTE | 2019-07-06 19:30 | NUR ---
RESPIRATORY THERAPIST SAID PATIENT'S O2 SAT IS 86% SO SHE APPLIED O2 TO PATIENT AT 2L N/C AND SHE IS SATTING MUCH BETTER. WILL CONTINUE TO MONITOR.
--- NOTE | 2019-07-06 19:45 | NUR ---
19:15 ASSESSED PT FOR DA. SPO2 ON RA 86% PT PLACED ON 2 L NC. SPO2 92%. RESPS REGULAR AND UNLABORED. BBSs CLEAR. RN AWARE
[2019-07-06 20:00] VITALS: BP 122/59
[2019-07-07] VITALS: BP 108/61
--- NOTE | 2019-07-07 02:55 | NUR ---
MEDICATED WITH DILAUDID 0.25MG FOR COMPLAINTS OF ABDOMINAL PAIN. STRAIGHT CATHED PATIENT FOR 600CC YELLOW URINE AT THIS TIME. PATIENT TOLERATED WELL. WILL CONTINUE TO MONITOR. CALL LIGHT IN REACH.
[2019-07-07 06:15] LABS: BASO # 0.1 10*3/uL (0.0-0.1); BASO % 0.6 % (0.0-1.0); EOS # 0.7 10*3/uL (0.0-0.4); HEMATOCRIT 40.3 % (37.0-47.0); LYMPH # 2.8 10*3/uL (1.3-4.4); LYMPH % 16.6 % (27.0-41.0); MEAN CELL VOLUME 87.6 fl (81.0-99.0); MEAN CORPUSCULAR HGB 28.3 pg (27.0-31.0); MEAN CORPUSCULAR HGB CONC 32.3 g/dl (33.0-37.0); MEAN PLATELET VOLUME 10.2 fl (9.6-12.3); MONO # 0.7 10*3/uL (0.1-1.0); MONO % 3.8 % (3.0-9.0); NEUT # 12.6 10*3/uL (2.3-7.9); NEUT % 74.5 % (47.0-73.0); PLATELET COUNT AUTOMATED 300 10*3/uL (130-400); RED CELL DISTRI WIDTH 17.9 % (0-14.5)
[2019-07-07 06:34] LABS: BUN 10 mg/dl (7-24); CHLORIDE 108 mmol/L (98-107); CREATININE 0.61 mg/dL (0.55-1.02); SODIUM 137 mmol/L (136-145)
[2019-07-07 08:00] VITALS: BP 122/67
--- NOTE | 2019-07-07 09:00 | NUR ---
Manager Dental in to see patient. No new needs or request at this time. When medically stable she will be discharged to home with [facility] services.
--- NOTE | 2019-07-07 10:01 | NUR ---
PT REQUESTED INCREASE IN DILAUDID PAIN MED FOR BREAKTHROUGHT PAIN. DR. YANG INFORMED. SEE ORDERS.
[2019-07-07 12:00] VITALS: BP 125/66
[2019-07-07 16:00] VITALS: BP 132/63
[2019-07-07 20:11] VITALS: BP 115/69
[2019-07-08 00:10] VITALS: BP 119/54
--- NOTE | 2019-07-08 03:09 | NUR ---
PATIENT VOIDED IN BEDSIDE COMMODE 500CC YELLOW URINE.
--- NOTE | 2019-07-08 03:32 | NUR ---
PATIENT MEDICATED WITH DILAUDID 0.5MG IV FOR COMPLAINTS OF ABDOMINAL PAIN. WILL CONTINUE TO MONITOR. CALL LIGHT IN REACH.
--- NOTE | 2019-07-08 05:23 | NUR ---
WALKED INTO PATIENT'S ROOM AND SHE WAS SITTING ON THE FLOOR WITH BLOOD COMING FROM HER NOSE. SHE SAID SHE FELL AND HIT HER NOSE ON THE FLOOR ALONG WITH HER LEFT KNEE AND LEFT HAND. SAID VANESSA CAME INTO HER ROOM AND SHE GOT UP TO SEE HER. PATIENT SEEMS CONFUSED AT THIS TIME. VITAL SIGNS STABLE. DR. YANG NOTIFIED AND NEW ORDERS TO X-RAY LEFT KNEE AND LEFT HAND. ALSO ORDER TO D/C DILAUDID D/T CONFUSION. PATIENT'S IV ALSO RIPPED OUT AND UNABLE TO START NEW ONE. WILL HAVE NEXT SHIFT ATTEMPT.
[2019-07-08 06:10] LABS: BASO # 0.1 10*3/uL (0.0-0.1); BASO % 0.6 % (0.0-1.0); EOS # 0.5 10*3/uL (0.0-0.4); EOS % 3.7 % (1.0-4.0); HEMATOCRIT 38.9 % (37.0-47.0); LYMPH # 2.5 10*3/uL (1.3-4.4); LYMPH % 17.7 % (27.0-41.0); MEAN CELL VOLUME 87.8 fl (81.0-99.0); MEAN CORPUSCULAR HGB CONC 31.9 g/dl (33.0-37.0); MEAN PLATELET VOLUME 10.1 fl (9.6-12.3); MONO # 0.6 10*3/uL (0.1-1.0); MONO % 3.9 % (3.0-9.0); NEUT # 10.4 10*3/uL (2.3-7.9); NEUT % 73.5 % (47.0-73.0); PLATELET COUNT AUTOMATED 329 10*3/uL (130-400); RED BLOOD COUNT 4.43 10*6/uL (4.10-5.10); RED CELL DISTRI WIDTH 17.6 % (0-14.5); WHITE BLOOD COUNT 14.2 10*3/uL (4.8-10.8)
[2019-07-08 06:19] LABS: BUN 8 mg/dl (7-24); CHLORIDE 109 mmol/L (98-107); CREATININE 0.68 mg/dL (0.55-1.02); POTASSIUM 3.8 mmol/L (3.5-5.1); SODIUM 136 mmol/L (136-145)
--- NOTE | 2019-07-08 07:57 | NUR ---
PT AWAKE ALERT AND ORIENTEDX4, RESTING IN BED
[2019-07-08 08:00] VITALS: BP 129/63
[2019-07-08 12:00] VITALS: BP 105/57
[2019-07-08 16:00] VITALS: BP 142/64
--- NOTE | 2019-07-08 16:16 | NUR ---
PT REQUESTED AND GIVEN DILAUDID FOR C/O ABD PAIN PT RATES PAIN / WILL MONITOR
--- NOTE | 2019-07-08 16:55 | NUR ---
PT STATES THAT LISSA HELPED WILL MONITOR
--- NOTE | 2019-07-08 20:05 | NUR ---
PATIENT ASSESSMENT COMPLETED AT THIS TIME WITHOUT INCIDENT. IV FLUIDS INFUSING INTO RIGHT AC PERIPHERAL IV AT THIS TIME. PATIENT DENIES ANY SHORTNESS OF BREATH OR CHEST PAIN AT THIS TIME. PATIENT RESTING IN BED IN A POSITION OF COMFORT, CALL LIGHT WITHIN REACH. WILL CONTINUE TO MONITOR.
--- NOTE | 2019-07-08 22:22 | NUR ---
PRN IV DILAUDID GIVEN AT THIS TIME FOR 7/10 PAIN IN PATIENT BACK AND LEGS. A&O X3 AT THIS TIME, CALL LIGHT WITHIN REACH WILL CONTINUE TO MONITOR.
--- NOTE | 2019-07-08 23:46 | NUR ---
SLEEPING, EASILY AROUSED. IVF INFUSING WITH EASE. CALL LIGHT IN REACH. BED ALARM ON.
[2019-07-09] VITALS: BP 118/59
--- NOTE | 2019-07-09 00:37 | NUR ---
24HR CHART CHECK COMPLETED
--- NOTE | 2019-07-09 06:12 | NUR ---
TORADOL GIVEN FOR COMPLAINTS OF ABD PAIN 06/17. CALL LIGHT IN REACH. BED ALARM ON. WILL MONITOR.
[2019-07-09 06:55] LABS: BASO # 0.1 10*3/uL (0.0-0.1); BASO % 0.5 % (0.0-1.0); EOS # 0.4 10*3/uL (0.0-0.4); EOS % 2.9 % (1.0-4.0); LYMPH # 2.8 10*3/uL (1.3-4.4); LYMPH % 21.5 % (27.0-41.0); MEAN CELL VOLUME 87.5 fl (81.0-99.0); MEAN CORPUSCULAR HGB 28.3 pg (27.0-31.0); MEAN CORPUSCULAR HGB CONC 32.3 g/dl (33.0-37.0); MEAN PLATELET VOLUME 10.1 fl (9.6-12.3); MONO # 0.7 10*3/uL (0.1-1.0); MONO % 5.4 % (3.0-9.0); NEUT # 9.1 10*3/uL (2.3-7.9); NEUT % 68.6 % (47.0-73.0); PLATELET COUNT AUTOMATED 321 10*3/uL (130-400); RED CELL DISTRI WIDTH 17.8 % (0-14.5); WHITE BLOOD COUNT 13.2 10*3/uL (4.8-10.8)
--- NOTE | 2019-07-09 06:57 | NUR ---
TORADOL EFFECTIVE PER PT. RESTING IN BED WITHOUT DISTRESS. CALL LIGHT IN REACH. BED ALARM ON.
--- NOTE | 2019-07-09 07:00 | NUR ---
ASSUMED CARE OF PATIENT AT THIS TIME. PATIENT STILL CO OF ABDOMINAL PAIN. DENIES N/V/D. DENIES ANY TROUBLE URINATING AT THIS TIME. ASSESSMENT COMPLETE. RESPS EASY AND REGULAR. CALL LIGHT IN REACH. WILL MONITOR.
[2019-07-09 07:03] LABS: BUN 9 mg/dl (7-24); CHLORIDE 109 mmol/L (98-107); CREATININE 0.66 mg/dL (0.55-1.02); POTASSIUM 3.7 mmol/L (3.5-5.1); SODIUM 136 mmol/L (136-145)
[2019-07-09 08:00] VITALS: BP 137/76
--- NOTE | 2019-07-09 11:55 | NUR ---
PATIENT MEDICATED WITH PRN TORADOL FOR CO ABDOMINAL PAIN RATED AN 9/10. WILL ASSESS EFFECTIVENESS. CALL LIGHT IN REACH.
--- NOTE | 2019-07-09 12:55 | NUR ---
PER PATIENT TORADOL EFFECTIVE.
--- NOTE | 2019-07-09 14:00 | NUR ---
IN TO SEE PATIENT.
[2019-07-09 16:00] VITALS: BP 147/71
--- NOTE | 2019-07-09 17:43 | NUR ---
PATIENT MEDICATED WITH PRN TORADDOL FOR CO OF ABDOMINAL PAIN. WILL ASSESS EFFECTIVENESS.
--- NOTE | 2019-07-09 18:31 | NUR ---
PATIENT STATES TORADOL WAS ONLY A LITTLE EFFECTIVE.
[2019-07-09 20:00] VITALS: BP 154/68
--- NOTE | 2019-07-09 20:20 | NUR ---
RESTING IN BED. NO SIGNS OF ACUTE DISTRESS NOTED. IVF INFUSING WITH NO PROBLEM. C/O LUQ PAIN, RATES PAIN 10 ON PAIN SCALE 0-10. BSG-290, SEE EMAR. TOLERATED ROUTINE VALIUM AND ROUTINE MED WITH NO PROBLEM. CALL LIGHT IN REACH.
--- NOTE | 2019-07-09 21:20 | NUR ---
ASSISTED TO BATHROOM AND BACK TO BED. STATES PAIN MEDICATION EFFECTIVE. NO OTHER C/O AT THIS TIME. CALL LIGHT IN REACH.
[2019-07-10] VITALS: BP 121/54
--- NOTE | 2019-07-10 00:20 | NUR ---
PT SLEEPING IN BED, AWAKENS EASILY. RESP-EASY AND REGULAR. IVF INFUSING WITH NO PROBLEM. CALL LIGHT IN REACH. SEE SHIFT ASSESSMENT.
--- NOTE | 2019-07-10 04:00 | NUR ---
SLEEPING IN BED. RESP-EASY AND REGULAR. IVF INFUSING WITH NO PROBLEM. CALL LIGHT IN REACH.
--- NOTE | 2019-07-10 05:13 | NUR ---
PT SLEEPING IN BED, AWAKENS EASILY. BSG-270, SEE EMAR. MEDICATED WITH DILAUDID AT 0537 FOR C/O LUQ ABDOMINAL PAIN, RATES PAIN 8 ON PAIN SCALE 0-10. SEE EMAR. NO ACUTE DISTRESS NOTED. IVF INFUSING WITH NO PROBLEM. CALL LIGHT IN REACH.
--- NOTE | 2019-07-10 06:30 | NUR ---
PT RESTING IN BED WITH EYES CLOSED. MEDICATION EFFECTIVE. CALL LIGHT IN REACH.
--- NOTE | 2019-07-10 07:00 | NUR ---
ASSUMED CARE OF PATIENT AT THIS TIME. PATIENT RESTING IN BED WITH NO COMPLAINTS. ASSESSMENT COMPLETE. RESPS EASY AND REGULAR. PATIENT STATES SHE ALREADY ORDERED HER BREAKFAST. CALL LIGHT IN REACH. WILL MONITOR.
[2019-07-10 08:00] VITALS: BP 144/73
--- NOTE | 2019-07-10 08:30 | NUR ---
PATIENT RESTING IN BED EATING BREAKFAST. NO COMPLAINTS. CALL LIGHT IN REACH.
--- NOTE | 2019-07-10 11:10 | NUR ---
PATIENT REQUESTING PAIN MEDICINE FOR CO ABDOMINAL PAIN RATED AN 8/10. MEDICATED WITH PRN TORADOL. WILL ASSESS EFFEECTIVENESS.
[2019-07-10 12:00] VITALS: BP 144/73
--- NOTE | 2019-07-10 12:10 | NUR ---
PER PATIENT TORADOL WAS EFFECTIVE.
[2019-07-10] MEDS ORDERED: NAPROSYN500 MG PO (13:55)
[2019-07-10] MEDS ORDERED: TYLENOL EXTRA500 MG PO (13:55)
--- NOTE | 2019-07-10 14:33 | NUR ---
Faxed home health order to [facility]
--- NOTE | 2019-07-10 15:04 | NUR ---
Nutritional Support Services Note: Pts diet advanced to NCS. Tolerating po intake at this time. Has c/o pain. Encouraged small frequent meals. Will follow as needed. Refuses a supplement at this time. Will provide a night snack. Vicky George Rdn Ld
--- NOTE | 2019-07-10 15:40 | NUR ---
PATIENT HAS DISCHARGE ORDER IN AND HAD NO RIDE HOME. TRIED TO CONTACT PATIENTS DAUGHTER AND THE LINE WAS DISCONNECTED. PATIENT STATES SHE WAS LEAVING AND GOING TO WALK HOME. DRAGLINE OPERATOR, LEW NOTIFIED AND STATES TO OFFER A CAB TO THE PATIENT. THE PATIENT AGREED TO A CAB. [facility] CONTACTED. PATIENT AWATING CAB TO GET HER TO TAKE HER HOME.
--- NOTE | 2019-07-10 16:22 | NUR ---
Discharge instructions reviewed with patient/family. Patient receptive and verbalizes understanding. Follow-up care arranged. Written instructions given to patient/family. IV REMOVED. PATIENT LEFT IN CARE OF [facility]. ANDREW PARKS
== END 2019-07-10 16:22 | disposition home or self-care (01) | DRG 439 ==
LOC: ED 12:09 → 4E 16:18 → EDHOLD 16:18 → 4E 16:34
PROVIDERS: Emergency Medicine; ADMIT Internal Medicine
DX: K85.90 Acute pancreatitis without necrosis or infection, unspecified (principal); N39.0 Urinary tract infection, site not specified; G90.3 Multi-system degeneration of the autonomic nervous system; F33.1 Major depressive disorder, recurrent, moderate; E11.42 Type 2 diabetes mellitus with diabetic polyneuropathy; G40.409 Other generalized epilepsy and epileptic syndromes, not intractable, without status epilepticus; B95.7 Other staphylococcus as the cause of diseases classified elsewhere; J43.2 Centrilobular emphysema; E86.0 Dehydration; R19.7 Diarrhea, unspecified; F41.1 Generalized anxiety disorder; K21.0 Gastro-esophageal reflux disease with esophagitis; I25.10 Atherosclerotic heart disease of native coronary artery without angina pectoris; I11.9 Hypertensive heart disease without heart failure; M47.816 Spondylosis without myelopathy or radiculopathy, lumbar region; G89.29 Other chronic pain; F51.01 Primary insomnia; Z85.3 Personal history of malignant neoplasm of breast; Z90.10 Acquired absence of unspecified breast and nipple

== ENCOUNTER 2019-07-13 11:13 | Inpatient (IN) | payer OTHER ==
[~2019-07-13] VITALS: Ht 160 cm; Wt 73.7 kg
[2019-07-13 11:13] VITALS: BP 121/62
[~2019-07-13 11:13] MED LIST changes: +INDERAL XL80 MG PO; +MIDODRINE HCL10 MG PO; +NAPROSYN500 MG PO; +TYLENOL EXTRA500 MG PO; +ZOLOFT100 MG PO
[2019-07-13 12:03] LABS: HEMATOCRIT 34.1 % (37.0-47.0); MEAN CELL VOLUME 85.3 fl (81.0-99.0); MEAN CORPUSCULAR HGB CONC 32.8 g/dl (33.0-37.0); MEAN PLATELET VOLUME 9.9 fl (9.6-12.3); PLATELET COUNT AUTOMATED 442 10*3/uL (130-400); RED CELL DISTRI WIDTH 17.6 % (0-14.5); WHITE BLOOD COUNT 13.5 10*3/uL (4.8-10.8)
[2019-07-13 12:19] LABS: ACT PARTIAL THROMBO TIME 26.5 SECONDS (20.0-32.1)
[2019-07-13 12:20] LABS: ALBUMIN 2.6 gm/dl (3.1-4.5); ALKALINE PHOSPHATASE 105 U/L (45-117); BUN 12 mg/dl (7-24); CHLORIDE 106 mmol/L (98-107); CREATININE 0.81 mg/dL (0.55-1.02); LIPASE 788 U/L (73-393); POTASSIUM 3.5 mmol/L (3.5-5.1); SGOT/AST 11 IU/L (3-35); SGPT/ALT 18 U/L (12-78); SODIUM 137 mmol/L (136-145); TOTAL PROTEIN 6.4 gm/dL (6.4-8.2)
[2019-07-13 12:24] LABS: PLATELET SUFFICIENCY HIGH (NORMAL); POLYCHROMASIA SLIGHT; TARGET CELLS FEW; TOTAL CELLS COUNTED 100 #CELLS
[2019-07-13 12:52] LABS: BACTERIA TRACE; BILIRUBIN NEGATIVE (NEGATIVE); BLOOD NEGATIVE (NEGATIVE); CLARITY CLOUDY (CLEAR); COLOR YELLOW (YELLOW); GLUCOSE 1+ (NEGATIVE); KETONE NEGATIVE (NEGATIVE); LEUKO ESTERASE NEGATIVE (NEGATIVE); NITRITE NEGATIVE (NEGATIVE); SPECIFIC GRAVITY 1.015 (1.005-1.030); UROBILINOGEN 0.2 E.U./dl (0.2-1.0); WBC 31-40 wbc/hpf (0-5); YEAST 3+
[2019-07-13 14:00] VITALS: BP 93/77
[2019-07-13 16:00] VITALS: BP 116/60
[2019-07-13 20:00] VITALS: BP 133/69
[2019-07-14] VITALS: BP 119/59
[2019-07-14 08:00] VITALS: BP 141/73
[2019-07-14 12:00] VITALS: BP 146/78
[2019-07-14 16:00] VITALS: BP 143/75
[2019-07-14 20:00] VITALS: BP 139/82
[2019-07-15] VITALS: BP 137/79
[2019-07-15 07:54] LABS: LIPASE 343 U/L (73-393)
[2019-07-15 08:00] VITALS: BP 142/75
[2019-07-15 16:00] VITALS: BP 152/75
[2019-07-16] VITALS: BP 150/77
[2019-07-16 08:00] VITALS: BP 151/73
[2019-07-16 16:00] VITALS: BP 150/71
[2019-07-17] VITALS: BP 146/59
[2019-07-17 08:00] VITALS: BP 140/73
[2019-07-17 16:00] VITALS: BP 131/79
[2019-07-17 20:00] VITALS: BP 160/80
[2019-07-18] VITALS: BP 158/71
[2019-07-18 08:00] VITALS: BP 155/86
[2019-07-18 16:00] VITALS: BP 130/70
[2019-07-19] VITALS: BP 127/70
[2019-07-19 06:23] LABS: BUN 13 mg/dl (7-24); CHLORIDE 103 mmol/L (98-107); CREATININE 1.07 mg/dL (0.55-1.02); SODIUM 137 mmol/L (136-145)
[2019-07-19 06:32] LABS: HEMATOCRIT 41.1 % (37.0-47.0); MEAN CELL VOLUME 86.3 fl (81.0-99.0); MEAN CORPUSCULAR HGB 27.7 pg (27.0-31.0); MEAN CORPUSCULAR HGB CONC 32.1 g/dl (33.0-37.0); MEAN PLATELET VOLUME 9.8 fl (9.6-12.3); PLATELET COUNT AUTOMATED 674 10*3/uL (130-400); RED BLOOD COUNT 4.76 10*6/uL (4.10-5.10); RED CELL DISTRI WIDTH 18.4 % (0-14.5)
[2019-07-19 06:56] LABS: POTASSIUM 4.3 mmol/L (3.5-5.1)
[2019-07-19 07:19] LABS: BASOPHILS 2 % (0-1); PLATELET SUFFICIENCY HIGH (NORMAL); TOTAL CELLS COUNTED 100 #CELLS
[2019-07-19 08:00] VITALS: BP 129/63
[2019-07-19 16:00] VITALS: BP 132/64
[2019-07-20] VITALS: BP 137/78
[2019-07-20 08:00] VITALS: BP 130/70
[2019-07-20 09:20] VITALS: BP 135/77
[2019-07-20 10:25] VITALS: BP 138/70
[2019-07-20 10:33] VITALS: BP 149/68
[2019-07-20 10:53] VITALS: BP 138/75
== END 2019-07-20 15:35 | disposition left against medical advice (07) | DRG 377 ==
LOC: ED 11:13 → 5E 13:02 → EDHOLD 13:02 → 5E 13:19
PROVIDERS: Emergency Medicine; Internal Medicine; ADMIT Internal Medicine
PROC: 0DB68ZX Excision of Stomach, Via Natural or Artificial Opening Endoscopic, Diagnostic (ICD-10-PCS; principal; 2019-07-20)
DX: K29.71 Gastritis, unspecified, with bleeding (principal); K85.90 Acute pancreatitis without necrosis or infection, unspecified; F33.1 Major depressive disorder, recurrent, moderate; E44.0 Moderate protein-calorie malnutrition; K86.1 Other chronic pancreatitis; G40.909 Epilepsy, unspecified, not intractable, without status epilepticus; R62.7 Adult failure to thrive; F41.1 Generalized anxiety disorder; I10 Essential (primary) hypertension; G89.29 Other chronic pain; E11.42 Type 2 diabetes mellitus with diabetic polyneuropathy; M54.9 Dorsalgia, unspecified; J44.9 Chronic obstructive pulmonary disease, unspecified; I25.10 Atherosclerotic heart disease of native coronary artery without angina pectoris; F51.01 Primary insomnia; K21.9 Gastro-esophageal reflux disease without esophagitis; Z53.29 Procedure and treatment not carried out because of patient's decision for other reasons; F17.210 Nicotine dependence, cigarettes, uncomplicated; Z68.28 Body mass index [BMI] 28.0-28.9, adult; Z91.030 Bee allergy status; Z85.3 Personal history of malignant neoplasm of breast; Z88.8 Allergy status to other drugs, medicaments and biological substances; Z79.82 Long term (current) use of aspirin; Z90.10 Acquired absence of unspecified breast and nipple; Z79.899 Other long term (current) drug therapy; Z86.73 Personal history of transient ischemic attack (TIA), and cerebral infarction without residual deficits; Z90.710 Acquired absence of both cervix and uterus; Z90.13 Acquired absence of bilateral breasts and nipples; Z80.0 Family history of malignant neoplasm of digestive organs; Z82.5 Family history of asthma and other chronic lower respiratory diseases

== ENCOUNTER 2019-07-22 19:11 | Emergency (ER) | payer OTHER ==
[2019-07-22 19:43] LABS: BASO # 0.1 10*3/uL (0.0-0.1); BASO % 0.9 % (0.0-1.0); EOS # 0.7 10*3/uL (0.0-0.4); EOS % 4.4 % (1.0-4.0); LYMPH # 4.7 10*3/uL (1.3-4.4); LYMPH % 31.3 % (27.0-41.0); MEAN CELL VOLUME 88.5 fl (81.0-99.0); MEAN CORPUSCULAR HGB CONC 31.7 g/dl (33.0-37.0); MEAN PLATELET VOLUME 9.7 fl (9.6-12.3); MONO # 0.6 10*3/uL (0.1-1.0); MONO % 3.8 % (3.0-9.0); NEUT # 8.8 10*3/uL (2.3-7.9); NEUT % 59.1 % (47.0-73.0); PLATELET COUNT AUTOMATED 510 10*3/uL (130-400); RED BLOOD COUNT 4.07 10*6/uL (4.10-5.10); WHITE BLOOD COUNT 14.9 10*3/uL (4.8-10.8)
[2019-07-22 19:54] LABS: ACT PARTIAL THROMBO TIME 26.1 SECONDS (20.0-32.1)
[2019-07-22 19:57] LABS: ALBUMIN 2.8 gm/dl (3.1-4.5); ALKALINE PHOSPHATASE 97 U/L (45-117); BUN 18 mg/dl (7-24); CHLORIDE 110 mmol/L (98-107); CREATININE 1.01 mg/dL (0.55-1.02); LIPASE 498 U/L (73-393); POTASSIUM 3.4 mmol/L (3.5-5.1); SGOT/AST 12 IU/L (3-35); SGPT/ALT 22 U/L (12-78); SODIUM 139 mmol/L (136-145); TOTAL PROTEIN 6.3 gm/dL (6.4-8.2)
[2019-07-22 19:58] LABS: TROPONIN I < 0.015 ng/ml (<0.045)
[2019-07-22 20:24] LABS: BILIRUBIN NEGATIVE (NEGATIVE); BLOOD 3+ (NEGATIVE); CLARITY SL CLOUDY (CLEAR); COLOR YELLOW (YELLOW); GLUCOSE NEGATIVE (NEGATIVE); KETONE NEGATIVE (NEGATIVE); LEUKO ESTERASE 1+ (NEGATIVE); NITRITE POSITIVE (NEGATIVE); SPECIFIC GRAVITY 1.025 (1.005-1.030); UROBILINOGEN < 1.0 E.U./dl (0.2-1.0)
[2019-07-22 20:26] LABS: BACTERIA 2+; RBC 0-2 rbc/hpf (0-2); WBC TNTC wbc/hpf (0-5)
[2019-07-22] MEDS ORDERED: KEFLEX500 M1 PO (22:12)
[2019-07-22] MEDS ORDERED: ZOFRAN4 MG PO (22:13)
== END 2019-07-22 22:23 | disposition home or self-care (01) ==
LOC: ED 19:11
PROVIDERS: Emergency Medicine Emergency Medical Services
DX: N39.0 Urinary tract infection, site not specified (principal); E11.9 Type 2 diabetes mellitus without complications; I10 Essential (primary) hypertension; J44.9 Chronic obstructive pulmonary disease, unspecified

== ENCOUNTER 2019-07-29 15:27 | Inpatient (IN) | payer OTHER ==
[~2019-07-29] VITALS: Ht 160 cm; Wt 70.8 kg
[~2019-07-29 15:27] MED LIST changes: +KEFLEX500 M1 PO; +ZOFRAN4 MG PO
[2019-07-29 15:28] VITALS: BP 155/89
[2019-07-29 16:44] LABS: BASO # 0.1 10*3/uL (0.0-0.1); BASO % 0.9 % (0.0-1.0); EOS # 0.7 10*3/uL (0.0-0.4); EOS % 4.9 % (1.0-4.0); LYMPH % 26.3 % (27.0-41.0); MEAN CELL VOLUME 86.8 fl (81.0-99.0); MEAN CORPUSCULAR HGB 28.5 pg (27.0-31.0); MEAN CORPUSCULAR HGB CONC 32.9 g/dl (33.0-37.0); MEAN PLATELET VOLUME 10.4 fl (9.6-12.3); MONO # 0.7 10*3/uL (0.1-1.0); MONO % 4.7 % (3.0-9.0); NEUT # 9.5 10*3/uL (2.3-7.9); NEUT % 62.9 % (47.0-73.0); PLATELET COUNT AUTOMATED 331 10*3/uL (130-400); RED BLOOD COUNT 4.03 10*6/uL (4.10-5.10); RED CELL DISTRI WIDTH 18.3 % (0-14.5)
[2019-07-29 16:57] LABS: ACT PARTIAL THROMBO TIME 22.5 SECONDS (20.0-32.1); INTERNATIONAL NORM RATIO 0.9 (2.0-3.5)
[2019-07-29 17:08] LABS: ALBUMIN 3.1 gm/dl (3.1-4.5); ALKALINE PHOSPHATASE 95 U/L (45-117); BUN 15 mg/dl (7-24); CHLORIDE 102 mmol/L (98-107); CREATININE 1.11 mg/dL (0.55-1.02); LIPASE 478 U/L (73-393); POTASSIUM 3.4 mmol/L (3.5-5.1); SGOT/AST 12 IU/L (3-35); SGPT/ALT 28 U/L (12-78); SODIUM 133 mmol/L (136-145); TOTAL PROTEIN 6.8 gm/dL (6.4-8.2)
[2019-07-29 17:12] LABS: TROPONIN I < 0.015 ng/ml (<0.045)
[2019-07-29 18:26] VITALS: BP 148/78
--- NOTE | 2019-07-29 18:50 | NUR ---
Time: 1849 A 53 year old FEMALE admitted to 4E under services of DEBBIE FLORES MD. Pt. arrived via stretcher from ER. Chief complaint: HYPERGLYCEMIA. ABBI HOLGUIN
[2019-07-29] MEDS ORDERED: TOPROL XL25 MG PO (19:17)
[2019-07-29] MEDS ORDERED: Ipratropium Brom3 ML INH (19:18)
[2019-07-29 20:00] VITALS: BP 144/74
--- NOTE | 2019-07-29 20:18 | NUR ---
CALLED FOR ADMISSION ORDERS. ORDER IN PLACE PER WISHES.
--- NOTE | 2019-07-29 20:48 | NUR ---
SUE CHANGES TO [facility] CHANGE PER PHARMACY.
--- NOTE | 2019-07-29 21:50 | NUR ---
PATIENT MEDICATED WITH TYLENOL FOR C/O HEADACHE. WILL MONITOR
[2019-07-30] VITALS: BP 155/74
--- NOTE | 2019-07-30 01:05 | NUR ---
NOTED THAT PATIENT HAD LEFT MASTECTOMY, STATED IN 2012. IV D/C TO LEFT HAND AND RESTARTED 22G IN AILIN.
[2019-07-30 07:09] LABS: BUN 10 mg/dl (7-24); CHLORIDE 107 mmol/L (98-107); CREATININE 0.66 mg/dL (0.55-1.02); SODIUM 137 mmol/L (136-145)
[2019-07-30 07:35] LABS: BASO # 0.1 10*3/uL (0.0-0.1); BASO % 1.2 % (0.0-1.0); EOS # 0.8 10*3/uL (0.0-0.4); EOS % 7.1 % (1.0-4.0); HEMATOCRIT 39.7 % (37.0-47.0); LYMPH # 3.4 10*3/uL (1.3-4.4); LYMPH % 30.3 % (27.0-41.0); MEAN CORPUSCULAR HGB 28.8 pg (27.0-31.0); MEAN PLATELET VOLUME 11.2 fl (9.6-12.3); MONO # 0.6 10*3/uL (0.1-1.0); MONO % 5.5 % (3.0-9.0); NEUT # 6.3 10*3/uL (2.3-7.9); NEUT % 55.5 % (47.0-73.0); PLATELET COUNT AUTOMATED 311 10*3/uL (130-400); RED BLOOD COUNT 4.41 10*6/uL (4.10-5.10); RED CELL DISTRI WIDTH 18.7 % (0-14.5); WHITE BLOOD COUNT 11.3 10*3/uL (4.8-10.8)
[2019-07-30 08:00] VITALS: BP 171/94
--- NOTE | 2019-07-30 08:05 | NUR ---
DA NOT INITIATED AT THIS TIME. PT REFUSED DUE TO A MIGAINE HEADACHE.
--- NOTE | 2019-07-30 08:54 | NUR ---
FLEXERIL GIVEN FOR C/O BACK SPAMS. WILL MONITOR.
--- NOTE | 2019-07-30 10:02 | NUR ---
FLEXERIL NOT EFFECTIVE PER PT. DR. ARNOLD NOTIFIED. NEW ORDERS GIVEN.
--- NOTE | 2019-07-30 10:23 | NUR ---
TORADOL GIVEN FOR C/O MIGRAINE. WILL MONITOR.
--- NOTE | 2019-07-30 11:30 | NUR ---
TORADOL EFFECTIVE PER PT.
[2019-07-30 12:00] VITALS: BP 138/74
[2019-07-30 16:00] VITALS: BP 126/64
[2019-07-30 16:44] LABS: CLARITY SL CLOUDY (CLEAR); COLOR YELLOW (YELLOW)
[2019-07-30 17:13] LABS: BILIRUBIN NEGATIVE (NEGATIVE); BLOOD NEGATIVE (NEGATIVE); GLUCOSE 1+ (NEGATIVE); KETONE NEGATIVE (NEGATIVE); LEUKO ESTERASE TRACE (NEGATIVE); NITRITE NEGATIVE (NEGATIVE); UROBILINOGEN 0.2 E.U./dl (0.2-1.0)
[2019-07-30 17:15] LABS: BACTERIA 1+; EPITHELIAL CELLS 16-20; WBC 21-30 wbc/hpf (0-5); YEAST 2+
--- NOTE | 2019-07-30 18:47 | NUR ---
LISSA COWAN FOR C/O MIGRAINE. WILL MONITOR.
--- NOTE | 2019-07-30 19:00 | NUR ---
PATIENT VOICED NO COMPLAINTS AT THIS TIME. RESP ARE ERND ON ROOM AIR. CALL LIGHT WITHIN REACH
[2019-07-30 20:00] VITALS: BP 144/75
[2019-07-31] VITALS: BP 134/69
--- NOTE | 2019-07-31 00:45 | NUR ---
PATIENT MEDICATED WITH TYLENOL FOR HEADACHE. WILL MONITOR
--- NOTE | 2019-07-31 01:45 | NUR ---
TYLENOL APPEARS EFFECTIVE, PATIENT RESTING QUIETLY.
[2019-07-31 08:00] VITALS: BP 148/93
--- NOTE | 2019-07-31 08:46 | NUR ---
PHYSICAL THERAPY Nursing screen received and chart reviewed. PT evaluation received. Will follow. Thank you. Sailaja Reyes,PT,DPT
--- NOTE | 2019-07-31 09:00 | NUR ---
Concrete Mixer Operator Helper in to talk to patient. Patient states lives at home with alone with family checking on. There are no steps in the home. Physician: alejandrina Pharmacy: [facility] [place] health services: none Patient's level of ADLs: MINIMAL ASSIST Patient has working utilities: all working DME: nebulizer Follow-up physician's appointment after d/c: patient chooses to make own follow up doctors appointment Does patient want to access PORTAL?: no Discharge plan discussed with patient, she states she lives at home alone with family checking in on her. she states she requires some assistance with ambulation and adls, she stated Dr Olmedo had talked with her regarding a short term fpc for rehab prior to returning home, patient has had multiple admission to the hospital. patient was receptive to this, given choice of companied she chose [facility], social work associate will make referral to [facility]. patient will need an insurance precert to be discharged to [facility] and also a negative covid test, case management will follow. CAPRI NAZARIO
--- NOTE | 2019-07-31 09:38 | NUR ---
Nursing screen received and chart reviewed. Patient admitted for diabetic gastroparesis, hyperglycemia intractable vomiting with nausea. If patient has a decline in ADLs, transfers and functional mobility please sent OT orders. Thank you. Cathy Haynes OTR/L
--- NOTE | 2019-07-31 11:49 | NUR ---
PATIENT C/O ANXIETY. MEDICATED WITH VALIUM PER PRN ORDER.
[2019-07-31 12:00] VITALS: BP 160/98
--- NOTE | 2019-07-31 12:49 | NUR ---
PATIENT RESTING QUIETLY. STATES LESS ANXIOUS AT THIS TIME. VALIUM EFFECTIVE.
--- NOTE | 2019-07-31 14:25 | NUR ---
PATIENT C/O HEADACHE. MEDICATED WITH TYLENOL PER PRN ORDER.
--- NOTE | 2019-07-31 14:44 | NUR ---
PHYSICAL THERAPY Physical Therapy evaluation completed on 4E with full evaluation to follow. Moderate complexity PT evaluation per chart review and evaluation, [id number]. Recommend physical therapy per plan of care and SNF upon discharge. Thank you for this referral. Sailaja Reyes,PT,DPT
[2019-07-31 16:00] VITALS: BP 158/83
--- NOTE | 2019-07-31 16:14 | NUR ---
Occupational Therapy evaluation completed on 4E with full evaluation to follow. Recommend occupational therapy per plan of care and SNF upon discharge. Thank you for this referral. Cathy Haynes OTR/L
[2019-07-31 20:00] VITALS: BP 151/67
--- NOTE | 2019-07-31 21:00 | NUR ---
PATIENT WAS NOT CONNECTED TO IV FLUIDS UPON ENTERING ROOM. PATIENT STATED SHE WAS NOT CONNECTED AFTER BEING DISCONNECTED TO USE RESTROOM THIS AM. BAG #5 HANGING WITH CREDIT OG 800 NOTED. IVF RE-CONNECTED.
--- NOTE | 2019-07-31 21:09 | NUR ---
PATIENT MEDICATED WITH VALIUM FOR C/O ANXIETY. WILL CONTINUE TO MONITOR
[2019-08-01] VITALS: BP 144/76
--- NOTE | 2019-08-01 07:48 | NUR ---
Patient requested referral to [facility], full referral faxed. Covid 19 test results pending. Waiting on review/acceptance.
[2019-08-01 08:00] VITALS: BP 157/96
--- NOTE | 2019-08-01 08:45 | NUR ---
PHYSICAL THERAPY Patient seen this am 1;1 for therapy visit and was supine in bed upon therapist arrival. Patient identified by name / and and was very pleasant while joined by OT surgical assistant for observation this morning. Patient reports no new c/o's and tranfers supine to sit EOB with MIN A x 2. Patient needed a minute or so to collect herself then completed sit to stand CGA, ambulating with use of wh walker, CGA, 60'x 1, demonstrating slow, steady aurora and no LOB. Patient returned to EOB sit and remained as Nurse arrived with bed alarm activated for safety. Will continue per POC as tolerated, total treatment time 14 minutes. Meir Hernandez, UTILIZATION REVIEW SPECIALIST
--- NOTE | 2019-08-01 08:59 | NUR ---
OT NOTE Pt was seen this A.M. 1:1 for 15 minute OT session. Upon arrival pt was supine in bed. Pt identified by name and and had no complaints at this time. Pt transferred supine to sit EOB with SBA. While sitting EOB pt donned B socks AK. Sit to stand completed from bed level with SBA and use of w/w for UE support followed by functional mobility into the bathroom with SBA and use of w/w. There she transferred on/off standard commode and completed clothing management with SBA. She then stood sink side while washing her hands with SBA. Functional mobility completed back to the EOB where she was left sitting upright with call light in hand, tray table in place, and bed alarm activated for safety. Continue with POC as able. KELL Triana/Angela
--- NOTE | 2019-08-01 08:59 | NUR ---
PATIENT IS BEING DISCHARGED.
--- NOTE | 2019-08-01 09:00 | NUR ---
case management visits with patient, patient stated she was returning home when discharged, not going to [facility] for short term [facility] rehab. she stated her daughter lives close to her and will help her at home. case management again asked patient is she did not want to go to [facility]. she again stated she was going home not the nursing facility, case management will follow
--- NOTE | 2019-08-01 10:05 | NUR ---
PATIENT STATES SHE IS GOING HOME NOT TO A FACILITY. PHYSICAL THERAPY AND CASE MANAGEMENT IN ROOM. ATTEMPTED TO CALL DR. ARNOLD CELL PHONE BUT THERE WAS NO ANSWER. TRIED CALLING DAUTHER WELL NO ANSWER.
--- NOTE | 2019-08-01 11:27 | NUR ---
PATIENT ABSOLUTELY REFUSING TO GO TO REHAB OR SNF. LEFT MESSAGE WITH DR. ARNOLD OFFICE.
--- NOTE | 2019-08-01 11:44 | NUR ---
DR. ARNOLD STATES IF PATIENT DOES NOT GO TO SNF SHE WILL HAVE TO SIGN OUT AMA.
--- NOTE | 2019-08-01 11:49 | NUR ---
PATIENT SIGNED OUT AMA.
--- NOTE | 2019-08-02 08:40 | NUR ---
OCCUPATIONAL THERAPY CO-SIGN I approve of the Occupational Therapy notes written above. Cathy Haynes OTR/L
--- NOTE | 2019-08-02 08:41 | NUR ---
PHYSICAL THERAPY CO-SIGN I approve of the Physical Therapy notes written above. ALESSIA LERMA PT, DPT
== END 2019-08-01 11:49 | disposition left against medical advice (07) | DRG 74 ==
LOC: ED 15:27 → EDHOLD 17:41 → 4E 17:41
PROVIDERS: Emergency Medicine; ADMIT Internal Medicine
DX: E11.43 Type 2 diabetes mellitus with diabetic autonomic (poly)neuropathy (principal); E11.65 Type 2 diabetes mellitus with hyperglycemia; R62.7 Adult failure to thrive; T67.1XXA Heat syncope, initial encounter; R29.6 Repeated falls; F41.1 Generalized anxiety disorder; I10 Essential (primary) hypertension; I25.10 Atherosclerotic heart disease of native coronary artery without angina pectoris; N18.3 Chronic kidney disease, stage 3 (moderate); J44.9 Chronic obstructive pulmonary disease, unspecified; K21.9 Gastro-esophageal reflux disease without esophagitis; Z03.818 Encounter for observation for suspected exposure to other biological agents ruled out; G43.909 Migraine, unspecified, not intractable, without status migrainosus; G40.909 Epilepsy, unspecified, not intractable, without status epilepticus; E11.42 Type 2 diabetes mellitus with diabetic polyneuropathy; F31.9 Bipolar disorder, unspecified; G89.29 Other chronic pain; F17.210 Nicotine dependence, cigarettes, uncomplicated; E78.1 Pure hyperglyceridemia; K31.84 Gastroparesis; M47.816 Spondylosis without myelopathy or radiculopathy, lumbar region; Z53.29 Procedure and treatment not carried out because of patient's decision for other reasons; X58.XXXA Exposure to other specified factors, initial encounter; Y93.89 Activity, other specified; Y92.89 Other specified places as the place of occurrence of the external cause; Y99.8 Other external cause status; Z91.030 Bee allergy status; Z88.8 Allergy status to other drugs, medicaments and biological substances; Z86.73 Personal history of transient ischemic attack (TIA), and cerebral infarction without residual deficits; Z92.21 Personal history of antineoplastic chemotherapy; Z92.3 Personal history of irradiation; Z85.3 Personal history of malignant neoplasm of breast; Z87.440 Personal history of urinary (tract) infections; Z90.13 Acquired absence of bilateral breasts and nipples; Z90.49 Acquired absence of other specified parts of digestive tract; Z90.711 Acquired absence of uterus with remaining cervical stump; Z80.0 Family history of malignant neoplasm of digestive organs; Z82.5 Family history of asthma and other chronic lower respiratory diseases; Z68.27 Body mass index [BMI] 27.0-27.9, adult

== ENCOUNTER → 2019-08-12 | Emergency (ER) | payer OTHER ==
[~2019-08-12] VITALS: Ht 160 cm; Wt 74.8 kg
[~2019-08-12] MED LIST changes: +Ipratropium Brom3 ML INH
[2019-08-12 19:36] LABS: HEMATOCRIT 38.1 % (37.0-47.0); MEAN CELL VOLUME 89.9 fl (81.0-99.0); MEAN CORPUSCULAR HGB 28.8 pg (27.0-31.0); MEAN PLATELET VOLUME 10.3 fl (9.6-12.3); PLATELET COUNT AUTOMATED 377 10*3/uL (130-400); RED BLOOD COUNT 4.24 10*6/uL (4.10-5.10); RED CELL DISTRI WIDTH 18.3 % (0-14.5); WHITE BLOOD COUNT 14.7 10*3/uL (4.8-10.8)
[2019-08-12 19:52] LABS: ALBUMIN 3.5 gm/dl (3.1-4.5); ALKALINE PHOSPHATASE 128 U/L (45-117); BUN 34 mg/dl (7-24); CHLORIDE 103 mmol/L (98-107); CREATININE 1.78 mg/dL (0.55-1.02); POTASSIUM 4.3 mmol/L (3.5-5.1); SGOT/AST 18 IU/L (3-35); SGPT/ALT 35 U/L (12-78); SODIUM 132 mmol/L (136-145); TOTAL PROTEIN 7.2 gm/dL (6.4-8.2)
[2019-08-12 19:55] LABS: TROPONIN I < 0.015 ng/ml (<0.045)
[2019-08-12 20:02] LABS: PLATELET SUFFICIENCY NORMAL (NORMAL); TOTAL CELLS COUNTED 100 #CELLS
[2019-08-12 22:25] LABS: CREATININE 1.43 mg/dL (0.55-1.02); POTASSIUM 4.2 mmol/L (3.5-5.1)
== END ==
LOC: ED 19:00
PROVIDERS: Emergency Medicine
DX: E11.65 Type 2 diabetes mellitus with hyperglycemia (principal); E86.0 Dehydration; I10 Essential (primary) hypertension; J44.9 Chronic obstructive pulmonary disease, unspecified; I48.91 Unspecified atrial fibrillation; F17.200 Nicotine dependence, unspecified, uncomplicated; Z79.899 Other long term (current) drug therapy; Z79.4 Long term (current) use of insulin; Z79.84 Long term (current) use of oral hypoglycemic drugs; Z90.49 Acquired absence of other specified parts of digestive tract

== ENCOUNTER → 2019-09-15 | Outpatient (CLI) | payer OTHER ==
[2019-09-15 10:46] LABS: BASO # 0.2 10*3/uL (0.0-0.1); BASO % 0.9 % (0.0-1.0); EOS # 0.6 10*3/uL (0.0-0.4); EOS % 3.4 % (1.0-4.0); HEMATOCRIT 41.6 % (37.0-47.0); LYMPH # 3.9 10*3/uL (1.3-4.4); LYMPH % 22.1 % (27.0-41.0); MEAN CORPUSCULAR HGB 28.4 pg (27.0-31.0); MEAN CORPUSCULAR HGB CONC 31.5 g/dl (33.0-37.0); MONO # 0.7 10*3/uL (0.1-1.0); NEUT # 12.3 10*3/uL (2.3-7.9); NEUT % 69.1 % (47.0-73.0); PLATELET COUNT AUTOMATED 437 10*3/uL (130-400); RED BLOOD COUNT 4.62 10*6/uL (4.10-5.10); RED CELL DISTRI WIDTH 15.2 % (0-14.5); WHITE BLOOD COUNT 17.8 10*3/uL (4.8-10.8)
== END | disposition home or self-care (01) ==
LOC: LAB 10:09
PROVIDERS: Internal Medicine
DX: E11.65 Type 2 diabetes mellitus with hyperglycemia (principal); I95.1 Orthostatic hypotension; G40.909 Epilepsy, unspecified, not intractable, without status epilepticus; G43.909 Migraine, unspecified, not intractable, without status migrainosus; J45.41 Moderate persistent asthma with (acute) exacerbation; M16.11 Unilateral primary osteoarthritis, right hip

== ENCOUNTER 2019-10-21 15:36 | Observation (INO) | payer OTHER ==
[2019-10-21] VITALS (8 sets, daily range): BP systolic 60–134; BP diastolic 00–83
[~2019-10-21] VITALS: Ht 160 cm; Wt 65.3 kg
--- NOTE | 2019-10-21 16:14 | NUR ---
PATIENT BP TAKEN BY DOPPLER. PATIENT BP IS 60 OVER PALP. TWO IV ACCESS PLACED AND IV FLUIDS STARTED AT 999/HR ON PUMP.
[2019-10-21 16:35] LABS: HEMATOCRIT 44.6 % (37.0-47.0); MEAN CELL VOLUME 86.6 fl (81.0-99.0); MEAN CORPUSCULAR HGB 28.3 pg (27.0-31.0); MEAN CORPUSCULAR HGB CONC 32.7 g/dl (33.0-37.0); MEAN PLATELET VOLUME 10.1 fl (9.6-12.3); PLATELET COUNT AUTOMATED 441 10*3/uL (130-400); RED BLOOD COUNT 5.15 10*6/uL (4.10-5.10); RED CELL DISTRI WIDTH 14.3 % (0-14.5); WHITE BLOOD COUNT 18.5 10*3/uL (4.8-10.8)
[2019-10-21 16:53] LABS: PLATELET SUFFICIENCY HIGH (NORMAL); TOTAL CELLS COUNTED 100 #CELLS
[2019-10-21 16:54] LABS: STOMATOCYTE FEW
[2019-10-21 17:16] LABS: ALBUMIN 4.2 gm/dl (3.1-4.5); CREATININE 1.36 mg/dL (0.55-1.02); POTASSIUM 3.5 mmol/L (3.5-5.1); TOTAL PROTEIN 8.5 gm/dL (6.4-8.2)
[2019-10-21 18:04] LABS: BILIRUBIN NEGATIVE; BLOOD NEGATIVE (NEGATIVE); CLARITY CLEAR (CLEAR); COLOR YELLOW (YELLOW); GLUCOSE 3+; KETONE NEGATIVE; PH 5.5 (4.5-8.0); SPECIFIC GRAVITY 1.025 (1.001-1.030)
[2019-10-21 18:05] LABS: LEUKO ESTERASE NEGATIVE (NEGATIVE); NITRITE NEGATIVE (NEGATIVE); UROBILINOGEN 0.2 E.U./dl (0.0-1.0)
[2019-10-21 18:09] LABS: BACTERIA 2+; RBC 0-2 rbc/hpf (0-2); WBC 0-2 wbc/hpf (0-5)
--- NOTE | 2019-10-21 18:50 | NUR ---
PT ACTING MORE LETHARGIC AT THIS TIME. SHE KNOWS HER FIRST NAME AND THAT SHE IS IN THE HOSPITAL. CT OF HEAD ORDERED.
--- NOTE | 2019-10-21 19:02 | NUR ---
NURSE TO NURSE REPORT TAKEN FROM LYLA PRICE
[2019-10-21 23:52] LABS: HEMATOCRIT 41.8 % (37.0-47.0); MEAN CORPUSCULAR HGB CONC 31.1 g/dl (33.0-37.0); MEAN PLATELET VOLUME 10.3 fl (9.6-12.3); RED BLOOD COUNT 4.64 10*6/uL (4.10-5.10); RED CELL DISTRI WIDTH 14.6 % (0-14.5); WHITE BLOOD COUNT 17.9 10*3/uL (4.8-10.8)
[2019-10-21 23:54] LABS: MEAN CELL VOLUME 90.1 fl (81.0-99.0); PLATELET COUNT AUTOMATED 266 10*3/uL (130-400)
[2019-10-22 00:13] LABS: PLATELET SUFFICIENCY NORMAL (NORMAL); TOTAL CELLS COUNTED 100 #CELLS
[2019-10-22 02:15] VITALS: BP 162/92
--- NOTE | 2019-10-22 02:15 | NUR ---
A 53, admitted to , under the services of Dr. CELIA FRANCOIS,SHELBY Bustillo with a diagnosis of SYNCOPE, LEUKOCYTOSIS. Chief complaint is SYNCOPE. Patient arrived via ambulance from ER. Monitor applied. Initial assessment completed. Vital signs taken and recorded. DR. CELIA FRANCOIS,SHELBY Bustillo notified of admission to the unit. Orders received. See assessment for past medical history, medications and allergies. Patient and/or family oriented to unit. [facility] visitation policy reviewed. Clothing/patient valuable form completed. SINDY BURCH
--- NOTE | 2019-10-22 02:20 | NUR ---
WHILE DOING CLOTHING LIST, A BAG OF WEED WAS FOUND IN PATIENT POCKET WITH CIGARETTES AND DIRECTOR OF TEACHING AND LEARNING, ALL PLACED INTO WALL-A-ABELINO AND NUCLEAR WORKER TECHNICIAN NOTIFIED. NUCLEAR WORKER TECHNICIAN INSTRUCTED THIS RN TO GIVE TO HER AND SHE WILL CALL THE POLICE.
[2019-10-22] MEDS ORDERED: ARIPIPRAZOLE30 MG PO (02:43)
[2019-10-22] MEDS ORDERED: PROPRANOLOL HCL60 MG PO (02:44)
[2019-10-22] MEDS ORDERED: MELATONIN10 M4 PO (02:44)
--- NOTE | 2019-10-22 03:00 | NUR ---
ATTEMPTED TO CONTACT DR. YANG FOR ADMISSION ORDERS. NO ANSWER WILL ATTEMPT AGAIN.
--- NOTE | 2019-10-22 03:58 | NUR ---
DR. YANG NOTIFIED OF PT'S ADMISSION TO FLOOR. LABS AND XRAYS REVIEWED. T.O. RCVD TO CONTINUE HOME MEDS, NCS DIET, AND CBC IN AM.
--- NOTE | 2019-10-22 05:45 | NUR ---
SHIFT DIRECTOR INFORMED RN THAT POLICE DID NOT WANT [place] AND DID NOT CARE IF DISPOSED. [place]NA PLACED INTO RX. DESTROYER ON 4E WITH THREE RN WITNESSES.
[2019-10-22 06:08] LABS: BASO # 0.1 10*3/uL (0.0-0.1); BASO % 0.7 % (0.0-1.0); EOS # 0.5 10*3/uL (0.0-0.4); EOS % 2.7 % (1.0-4.0); HEMATOCRIT 41.7 % (37.0-47.0); LYMPH # 3.4 10*3/uL (1.3-4.4); LYMPH % 17.7 % (27.0-41.0); MEAN CELL VOLUME 88.7 fl (81.0-99.0); MEAN CORPUSCULAR HGB 28.5 pg (27.0-31.0); MEAN CORPUSCULAR HGB CONC 32.1 g/dl (33.0-37.0); MEAN PLATELET VOLUME 9.7 fl (9.6-12.3); MONO # 0.9 10*3/uL (0.1-1.0); MONO % 4.7 % (3.0-9.0); NEUT # 14.2 10*3/uL (2.3-7.9); NEUT % 73.7 % (47.0-73.0); PLATELET COUNT AUTOMATED 341 10*3/uL (130-400); RED CELL DISTRI WIDTH 14.5 % (0-14.5); WHITE BLOOD COUNT 19.2 10*3/uL (4.8-10.8)
[2019-10-22 08:00] VITALS: BP 154/82
--- NOTE | 2019-10-22 08:15 | NUR ---
PT MEDICATED WITH PRN VALIUM FOR C/O INCREASED ANXIETY. WILL MONITOR.
--- NOTE | 2019-10-22 08:49 | NUR ---
PRN VALIUM EFFECTIVE PER PT.
[2019-10-22 12:00] VITALS: BP 129/82
--- NOTE | 2019-10-22 12:46 | NUR ---
PT MEDICATED WITH ONE TIME DOSE OF EXCEDRIN AT THIS TIME FOR C/O A MIGRAINE. WILL MONITOR.
--- NOTE | 2019-10-22 15:42 | NUR ---
DISCHARGE INSTRUCTIONS REVIEWED. FOLLOW UP CARE DISCUSSED. BILATERAL HEPLOCKS REMOVED. PT TRANPORTED OFF THE FLOOR VIA WHEELCHAIR.
== END 2019-10-22 15:42 | disposition home or self-care (01) ==
LOC: ED 15:36 → EDHOLD 10-22 01:06 → 5E 10-22 01:25
PROVIDERS: Emergency Medicine; Emergency Medicine Emergency Medical Services; ADMIT Internal Medicine; ATTEND Internal Medicine
DX: K85.90 Acute pancreatitis without necrosis or infection, unspecified (principal); R62.7 Adult failure to thrive; F41.1 Generalized anxiety disorder; E11.42 Type 2 diabetes mellitus with diabetic polyneuropathy; G40.909 Epilepsy, unspecified, not intractable, without status epilepticus; E11.43 Type 2 diabetes mellitus with diabetic autonomic (poly)neuropathy; M54.5 Low back pain; G89.29 Other chronic pain; J44.9 Chronic obstructive pulmonary disease, unspecified; K21.9 Gastro-esophageal reflux disease without esophagitis; I25.10 Atherosclerotic heart disease of native coronary artery without angina pectoris

== ENCOUNTER 2019-11-05 17:18 | Emergency (ER) | payer OTHER ==
[~2019-11-05] VITALS: Ht 160 cm; Wt 66.7 kg
[~2019-11-05 17:18] MED LIST changes: +MELATONIN10 M4 PO; +PROPRANOLOL HCL60 MG PO
[2019-11-05 21:05] LABS: BASO # 0.1 10*3/uL (0.0-0.1); BASO % 0.4 % (0.0-1.0); EOS # 0.1 10*3/uL (0.0-0.4); EOS % 0.5 % (1.0-4.0); LYMPH # 2.1 10*3/uL (1.3-4.4); LYMPH % 9.5 % (27.0-41.0); MEAN CELL VOLUME 87.2 fl (81.0-99.0); MEAN CORPUSCULAR HGB 28.6 pg (27.0-31.0); MEAN CORPUSCULAR HGB CONC 32.8 g/dl (33.0-37.0); MEAN PLATELET VOLUME 10.3 fl (9.6-12.3); MONO % 4.5 % (3.0-9.0); NEUT # 18.5 10*3/uL (2.3-7.9); NEUT % 84.6 % (47.0-73.0); PLATELET COUNT AUTOMATED 258 10*3/uL (130-400); RED BLOOD COUNT 4.47 10*6/uL (4.10-5.10); RED CELL DISTRI WIDTH 14.6 % (0-14.5); WHITE BLOOD COUNT 21.9 10*3/uL (4.8-10.8)
[2019-11-05 21:21] LABS: ALBUMIN 2.9 gm/dl (3.1-4.5); CREATININE 2.74 mg/dL (0.55-1.02); POTASSIUM 3.5 mmol/L (3.5-5.1); TOTAL PROTEIN 6.3 gm/dL (6.4-8.2)
[2019-11-05 21:30] LABS: BILIRUBIN Negative; BLOOD 1+ (NEGATIVE); CLARITY Turbid (CLEAR); COLOR Yellow (YELLOW); GLUCOSE 3+; KETONE Negative; LEUKO ESTERASE Negative (NEGATIVE); NITRITE Negative (NEGATIVE); SPECIFIC GRAVITY > 1.030 (1.001-1.030)
[2019-11-05 21:31] LABS: BACTERIA 4+
[2019-11-05 22:17] LABS: URINE AMPHETAMINES < 1000 (1000ng/ml); URINE BARBITURATES < 200 (200ng/ml); URINE BENZODIAZEPINES > 200 (200ng/ml); URINE CANNABINOIDS (THC) < 50 (50ng/ml); URINE COCAINE < 300 (300ng/ml); URINE METHADONE < 300 (300ng/ml); URINE OPIATES < 300 (300ng/ml)
[2019-11-05 22:37] LABS: URINE PHENCYCLIDINE < 25 (25ng/ml)
== END 2019-11-05 23:30 | disposition short-term general hospital (02) ==
LOC: ED 17:18
PROVIDERS: Emergency Medicine
DX: N17.9 Acute kidney failure, unspecified (principal); K85.91 Acute pancreatitis with uninfected necrosis, unspecified; E87.1 Hypo-osmolality and hyponatremia; E11.65 Type 2 diabetes mellitus with hyperglycemia; I48.91 Unspecified atrial fibrillation; F17.200 Nicotine dependence, unspecified, uncomplicated; Z88.8 Allergy status to other drugs, medicaments and biological substances; Z91.030 Bee allergy status; Z79.4 Long term (current) use of insulin; Z79.82 Long term (current) use of aspirin; Z79.899 Other long term (current) drug therapy

== ENCOUNTER 2019-11-17 11:59 | Emergency (ER) | payer OTHER ==
[~2019-11-17] VITALS: Ht 167.6 cm; Wt 67.1 kg
[2019-11-17 12:48] LABS: BASO # 0.1 10*3/uL (0.0-0.1); BASO % 0.6 % (0.0-1.0); EOS # 0.4 10*3/uL (0.0-0.4); EOS % 1.9 % (1.0-4.0); HEMATOCRIT 33.6 % (37.0-47.0); LYMPH # 3.8 10*3/uL (1.3-4.4); LYMPH % 20.6 % (27.0-41.0); MEAN CELL VOLUME 84.8 fl (81.0-99.0); MEAN CORPUSCULAR HGB 28.3 pg (27.0-31.0); MEAN CORPUSCULAR HGB CONC 33.3 g/dl (33.0-37.0); MEAN PLATELET VOLUME 10.2 fl (9.6-12.3); MONO # 0.8 10*3/uL (0.1-1.0); MONO % 4.6 % (3.0-9.0); NEUT % 71.4 % (47.0-73.0); PLATELET COUNT AUTOMATED 702 10*3/uL (130-400); RED BLOOD COUNT 3.96 10*6/uL (4.10-5.10); RED CELL DISTRI WIDTH 14.5 % (0-14.5); WHITE BLOOD COUNT 18.2 10*3/uL (4.8-10.8)
[2019-11-17 13:01] LABS: ALBUMIN 2.7 gm/dl (3.1-4.5); ALKALINE PHOSPHATASE 108 U/L (45-117); BUN 14 mg/dl (7-24); CHLORIDE 98 mmol/L (98-107); CREATININE 0.97 mg/dL (0.55-1.02); LIPASE 421 U/L (73-393); POTASSIUM 3.3 mmol/L (3.5-5.1); SGOT/AST 14 IU/L (3-35); SGPT/ALT 18 U/L (12-78); SODIUM 130 mmol/L (136-145); TOTAL PROTEIN 6.9 gm/dL (6.4-8.2)
== END 2019-11-17 15:43 | disposition home or self-care (01) ==
LOC: ED 11:59
PROVIDERS: Nurse Practitioner Family
DX: R10.9 Unspecified abdominal pain (principal)

== ENCOUNTER 2019-12-29 10:03 | Inpatient (IN) | payer OTHER ==
[~2019-12-29] VITALS: Ht 172.7 cm; Wt 66.7 kg
[~2019-12-29 10:03] MED LIST changes: +KEPPRA750 MG PO; +NEURONTIN600 MG PO; +ZESTRIL20 MG PO
--- NOTE | 2019-12-29 10:03 | NUR ---
ARRIVED TO ROOM 12 VIA EMS
--- NOTE | 2019-12-29 10:04 | NUR ---
DR. MERCER AT BEDSIDE
[2019-12-29 10:10] VITALS: BP 131/82
[2019-12-29 10:33] VITALS: BP 134/79
[2019-12-29 10:45] LABS: ABG BASE EXCESS 2.2 mmol/L (-2.0-2.0); ARTERIAL BLOOD GAS PH 7.321 (7.35-7.45)
[2019-12-29 10:47] VITALS: BP 141/87
[2019-12-29 10:47] LABS: BASO % 0.2 % (0.0-1.0); EOS # 0.1 10*3/uL (0.0-0.4); EOS % 0.6 % (1.0-4.0); LYMPH # 1.9 10*3/uL (1.3-4.4); LYMPH % 9.5 % (27.0-41.0); MEAN CELL VOLUME 86.1 fl (81.0-99.0); MEAN CORPUSCULAR HGB 27.9 pg (27.0-31.0); MEAN CORPUSCULAR HGB CONC 32.4 g/dl (33.0-37.0); MEAN PLATELET VOLUME 9.7 fl (9.6-12.3); MONO # 0.1 10*3/uL (0.1-1.0); MONO % 0.5 % (3.0-9.0); NEUT # 17.9 10*3/uL (2.3-7.9); NEUT % 88.8 % (47.0-73.0); PLATELET COUNT AUTOMATED 476 10*3/uL (130-400); RED BLOOD COUNT 4.76 10*6/uL (4.10-5.10); RED CELL DISTRI WIDTH 14.6 % (0-14.5); WHITE BLOOD COUNT 20.2 10*3/uL (4.8-10.8)
[2019-12-29] MEDS ORDERED: UNABLE TO OBTAIN (10:47)
--- NOTE | 2019-12-29 10:48 | NUR ---
LAURA SENT TO LAB
--- NOTE | 2019-12-29 10:48 | NUR ---
PATIENT RESTING. HAS NO NEEDS. SLEEPING. WAKES TO LOUD VERBAL STIMULI. CALL LIGHT AT RIGHT SIDE. BED IN LOW.
--- NOTE | 2019-12-29 10:55 | NUR ---
OSTRICH FARM WORKER AT BEDSIDE, PATIENT RECIEVING BREATHING TREATMENT
--- NOTE | 2019-12-29 10:58 | NUR ---
WENT TO CHECK PATIENT, HER RESPIRATIONS ARE NOW 8 PER MINUTE, DR. MERCER AWARE AND ORDERING NARCAN
[2019-12-29 11:01] LABS: ALBUMIN 3.6 gm/dl (3.1-4.5); ALKALINE PHOSPHATASE 126 U/L (45-117); BUN 17 mg/dl (7-24); CHLORIDE 97 mmol/L (98-107); CREATININE 1.11 mg/dL (0.55-1.02); POTASSIUM 3.4 mmol/L (3.5-5.1); SGOT/AST 30 IU/L (3-35); SGPT/ALT 26 U/L (12-78); SODIUM 135 mmol/L (136-145); TOTAL PROTEIN 7.7 gm/dL (6.4-8.2)
--- NOTE | 2019-12-29 11:33 | NUR ---
INITIAL CONTACT WITH PT. ALERT UPON ENTERING ROOM TO LOUD VERBAL STIMULI. LETHARGIC AND SLOW TO RESPOND. SKIN WARM AND DRY. RESPIRATIONS EVEN AND SHALLOW WITH USE OF 4L NC AT REST. PT HAS DIFFICULTY MAINTAINING FULL SENTANCES WITH OUT BECOMING FATIGUED AND SOB. NO COUGH OR FEVER NOTED. PT STATES RECENTLY RELEASED FROM HOSPITAL AND [facility] STARTED TWO DAYS AGO. SIDE RALES UP TIME TWO. BED LOCKED AND LOW. CONTINUING TO MONITOR.
[2019-12-29 11:37] LABS: URINE AMPHETAMINES < 1000 (1000ng/ml); URINE BARBITURATES < 200 (200ng/ml); URINE BENZODIAZEPINES > 200 (200ng/ml); URINE CANNABINOIDS (THC) > 50 (50ng/ml); URINE COCAINE < 300 (300ng/ml); URINE METHADONE < 300 (300ng/ml); URINE OPIATES < 300 (300ng/ml)
[2019-12-29 11:38] LABS: URINE PHENCYCLIDINE < 25 (25ng/ml)
--- NOTE | 2019-12-29 12:00 | NUR ---
PATIENT PLACED ON BI-PAP 21/09, 35%. PULSE OX 93%, HEART RATE 115.
[2019-12-29 12:15] VITALS: BP 143/80
--- NOTE | 2019-12-29 12:15 | NUR ---
A 54yr old female, admitted to [facility], under the services of Dr. CELIA FRANCOIS,[facility] with a diagnosis of COPD exacerbation, respiratory failure. Chief complaint is home health nurse called EMS for lethargy and N/V. Patient arrived via stretcher from ER. Patient arrives very sleepy with bradypnea 8-12 BPM. On repeated verbal stimuli she arouses briefly and answers some questions appropriately. Monitor applied. Initial assessment completed. Vital signs taken and recorded. See assessment for past medical history, medications and allergies. Patient and/or family oriented to unit. [facility] visitation policy reviewed. Clothing/patient valuable form completed. Dr Liao saw patient in ER. POLI GOYAL
--- NOTE | 2019-12-29 12:40 | NUR ---
1150- BGL 368 1200- REPAIR CAMERAMAN AT BEDSIDE STATES OKAY TO GO TO MONITORED FLOOR, RESPIRATIORY PERSONAL AT BEDSIDE. BIPAP ORDERED AND REPEAT GASES IN 2HR. 1225- REPORT FAXED TO THE FLOOR TO POLI ALONG WITH PHONE REPORT DUE TO MY HAND WRITING SKILLS. 1230- PT TO THE FLOOR.
[2019-12-29 14:57] LABS: ABG BASE EXCESS 0.5 mmol/L (-2.0-2.0); ARTERIAL BLOOD GAS PH 7.293 (7.35-7.45)
[2019-12-29 16:00] VITALS: BP 142/70
[2019-12-29] MEDS ORDERED: HUMALOG 751 UNIT/0.0 SC (16:40)
[2019-12-29] MEDS ORDERED: CREON DR 12,001 EACH PO (16:43)
[2019-12-29] MEDS ORDERED: NORVASC5 MG PO (16:50)
[2019-12-29] MEDS ORDERED: FENOFIBRATE160 MG PO (16:56)
--- NOTE | 2019-12-29 18:05 | NUR ---
DR YANG NOTIFIED OF PERSISTENT HYPERGLYCEMIA. ORDERS RECEIVED.
[2019-12-29 19:48] LABS: ABG BASE EXCESS 0.5 mmol/L (-2.0-2.0); ARTERIAL BLOOD GAS PH 7.31 (7.35-7.45)
[2019-12-29 20:00] VITALS: BP 140/74
--- NOTE | 2019-12-29 20:00 | NUR ---
Patient resting quietly with no c/o discomfort. Respirations easy and regular. Vital signs stable. No overt distress. NELLIE PHILLIPS
--- NOTE | 2019-12-29 21:45 | NUR ---
PT SITTING UP IN BED EATING SANDWICH AND PEACHES. BIPAP OFF AT THIS TIME. PT TOLERATING WELL. OXYGEN AT 2L NC
[2019-12-30] VITALS: BP 121/68
--- NOTE | 2019-12-30 | NUR ---
Patient resting quietly with no c/o discomfort. Respirations easy and regular. Vital signs stable. No overt distress. NELLIE PHILLIPS
--- NOTE | 2019-12-30 05:42 | NUR ---
Patient resting quietly with no c/o discomfort. Respirations easy and regular. Vital signs stable. No overt distress. NELLIE PHILLIPS
[2019-12-30 05:53] LABS: ALBUMIN 3.3 gm/dl (3.1-4.5); ALKALINE PHOSPHATASE 120 U/L (45-117); BUN 21 mg/dl (7-24); CHLORIDE 103 mmol/L (98-107); CREATININE 0.92 mg/dL (0.55-1.02); POTASSIUM 4.3 mmol/L (3.5-5.1); SGOT/AST 22 IU/L (3-35); SGPT/ALT 23 U/L (12-78); SODIUM 137 mmol/L (136-145); TOTAL PROTEIN 7.7 gm/dL (6.4-8.2)
[2019-12-30 06:37] LABS: HEMATOCRIT 39.9 % (37.0-47.0); MEAN CELL VOLUME 89.1 fl (81.0-99.0); MEAN CORPUSCULAR HGB 27.9 pg (27.0-31.0); MEAN CORPUSCULAR HGB CONC 31.3 g/dl (33.0-37.0); PLATELET COUNT AUTOMATED 454 10*3/uL (130-400); RED BLOOD COUNT 4.48 10*6/uL (4.10-5.10); RED CELL DISTRI WIDTH 14.9 % (0-14.5); WHITE BLOOD COUNT 32.9 10*3/uL (4.8-10.8)
[2019-12-30 07:12] LABS: ATYPICAL LYMPHS 1 % (0-0); PLATELET SUFFICIENCY HIGH (NORMAL); TOTAL CELLS COUNTED 100 #CELLS
[2019-12-30 09:09] LABS: ABG BASE EXCESS 2.4 mmol/L (-2.0-2.0); ARTERIAL BLOOD GAS PH 7.355 (7.35-7.45)
[2019-12-30 09:10] VITALS: BP 119/67
[2019-12-30 12:00] VITALS: BP 119/67
--- NOTE | 2019-12-30 15:22 | NUR ---
Computer Consultant in to talk to patient. Patient states lives at home with alone with family checking on her. There are no steps in the home. Physician: alejandrina Pharmacy: [facility] [place] health services: none Patient's level of ADLs: INDEPENDENT Patient has working utilities: all working DME: nebulizer Follow-up physician's appointment after d/c: will be made by hospitalist nurse director upon discharge Does patient want to access PORTAL?: no Discharge plan discussed with patient, she lives at home alone with family checking on she is independent in adls and ambulation, she states she will return home when discharged and denies any home needs, case management will follow. CAPRI NAZARIO
[2019-12-30 16:02] VITALS: BP 112/60
--- NOTE | 2019-12-30 18:15 | NUR ---
PT STABLE. ON 4 LPM/NC. DIMINSHED BILATERALLY. PT IS WEAK HAD IN INCONTINENT EPISODE. SHE DID HELP WITH GETTING HERSELF CLEANED UP AND CHANGED HER GOWN. DAUGHTER CALLED EARLIER IN THE SHIFT WORRIED ABOUT HER MOTHER NOT BEING ABLE TO CARE FOR HERSELF AND WOULD LIKE SOME ASSISTANCE FOR HER AT HOME. SPOKE WITH THE REST ROOM MATRON AND SHE WILL CALL THE DAUGHTER. BS HAVE BEEN ELEVATED AND COVERED PER THE MAR.
[2019-12-30 20:00] VITALS: BP 110/63
[2019-12-31] VITALS: BP 114/62
[2019-12-31 06:31] LABS: HEMATOCRIT 37.1 % (37.0-47.0); MEAN CELL VOLUME 88.5 fl (81.0-99.0); MEAN CORPUSCULAR HGB 27.4 pg (27.0-31.0); MEAN PLATELET VOLUME 10.1 fl (9.6-12.3); PLATELET COUNT AUTOMATED 410 10*3/uL (130-400); RED BLOOD COUNT 4.19 10*6/uL (4.10-5.10); RED CELL DISTRI WIDTH 14.9 % (0-14.5); WHITE BLOOD COUNT 27.6 10*3/uL (4.8-10.8)
[2019-12-31 06:45] LABS: ALBUMIN 2.8 gm/dl (3.1-4.5); ALKALINE PHOSPHATASE 102 U/L (45-117); BUN 23 mg/dl (7-24); CHLORIDE 101 mmol/L (98-107); CREATININE 0.78 mg/dL (0.55-1.02); POTASSIUM 4.4 mmol/L (3.5-5.1); SGOT/AST 17 IU/L (3-35); SGPT/ALT 18 U/L (12-78); SODIUM 136 mmol/L (136-145); TOTAL PROTEIN 7.2 gm/dL (6.4-8.2)
[2019-12-31 07:11] LABS: TOTAL CELLS COUNTED 100 #CELLS
[2019-12-31 07:12] LABS: PLATELET SUFFICIENCY HIGH (NORMAL); POLYCHROMASIA SLIGHT
[2019-12-31 08:11] VITALS: BP 117/65
[2019-12-31 12:00] VITALS: BP 119/56
--- NOTE | 2019-12-31 14:24 | NUR ---
PT O2 HAS BEEN DECREASED TO 2 LPM/NC. SHE HAS BEEN UP TO THE CHAIR FOR MEALS. ASSISTED PT WITH SHAVING THIS AM. SHE WAS ABLE TO GO TO THE BATHROOM AND GET CLEANED UP. HER O2 DROPPED TO 89% ON ROOM AIT WHILE IN THE BATHROOM AND AMBULATING.
[2019-12-31 16:00] VITALS: BP 118/68
[2019-12-31 20:00] VITALS: BP 109/66
[2020-01-01] VITALS: BP 122/72
[2020-01-01 04:00] VITALS: BP 122/72
[2020-01-01 06:25] VITALS: BP 122/72
[2020-01-01 06:53] LABS: BASO % 0.1 % (0.0-1.0); HEMATOCRIT 37.8 % (37.0-47.0); LYMPH # 3.2 10*3/uL (1.3-4.4); LYMPH % 14.2 % (27.0-41.0); MEAN CELL VOLUME 87.7 fl (81.0-99.0); MEAN CORPUSCULAR HGB 28.5 pg (27.0-31.0); MEAN CORPUSCULAR HGB CONC 32.5 g/dl (33.0-37.0); MEAN PLATELET VOLUME 9.8 fl (9.6-12.3); MONO # 0.7 10*3/uL (0.1-1.0); MONO % 3.1 % (3.0-9.0); NEUT # 18.4 10*3/uL (2.3-7.9); NEUT % 81.7 % (47.0-73.0); PLATELET COUNT AUTOMATED 429 10*3/uL (130-400); RED BLOOD COUNT 4.31 10*6/uL (4.10-5.10); WHITE BLOOD COUNT 22.5 10*3/uL (4.8-10.8)
[2020-01-01 07:25] LABS: ALBUMIN 2.8 gm/dl (3.1-4.5); BUN 29 mg/dl (7-24); CHLORIDE 98 mmol/L (98-107); POTASSIUM 4.5 mmol/L (3.5-5.1); SGOT/AST 11 IU/L (3-35); SGPT/ALT 17 U/L (12-78); SODIUM 133 mmol/L (136-145)
[2020-01-01 07:26] LABS: ALKALINE PHOSPHATASE 105 U/L (45-117); CREATININE 0.85 mg/dL (0.55-1.02); TOTAL PROTEIN 7.4 gm/dL (6.4-8.2)
[2020-01-01 08:59] LABS: ARTERIAL BLOOD GAS PH 7.421 (7.35-7.45)
[2020-01-01 12:00] VITALS: BP 134/66
--- NOTE | 2020-01-01 12:45 | NUR ---
PHYSICAL THERAPY Physical Therapy evaluation completed on 4th floor with full evaluation to follow. Recommend physical therapy per plan of care and home with family and HH services upon discharge. After speaking w pt and CM, pt is requesting FWW,see evaluation, for home MD agreeable will look to issue prior to discharge. Thank you for this referral. Ester Pfeiffer PT
[2020-01-01] MEDS ORDERED: AUGMENTIN 875-875 MG PO (13:26)
[2020-01-01] MEDS ORDERED: MEDROL DOSEPAK4 MG PO (13:26)
--- NOTE | 2020-01-01 14:45 | NUR ---
PHYSICAL THERAPY No complaints pt on RA now per nsg ok to see 02 stable Pt see the bedside for further gait training w FWW. Pt prefers higher setting of fww for height. STS Supervision x 1 Amb 2 x 30 ft in room w FWW Supervision x 1 steady gait with amb and turns also ed on backward walk and sidesteps. Pt displayed safe use of FWW. Ed pt on home safety no throw rugs open/closing of device to fold and caps on bottom of AD so to slide easy on carpet/tile. Pt ed and in agreement w isusing FWW paper copy issued to pt for her records. Pt will have HH upon discharge and pt's dgtr to stay with her after d/c today. Ester Pfeiffer PT
--- NOTE | 2020-01-01 15:14 | NUR ---
Dr. Liao notified of discharge and agrees she is ok to be discharged.
--- NOTE | 2020-01-01 18:27 | NUR ---
PT DC HOME. ALL QUESTIONS AND CONCERNS ADDRESSED. SHE WAS TAKEN HOME BY T[facility]I. FAMILY WAS UNAVAILABLE TO TAKE HER HOME. HOME MEDICATIONS WAS RETURNED TO PATIENT. WALKER WAS ORDERED AND SENT WITH THE PATIENT.
== END 2020-01-01 18:27 | disposition home or self-care (01) | DRG 871 ==
LOC: ED 10:03 → EDHOLD 11:35 → 4E 11:35
PROVIDERS: Emergency Medicine; Internal Medicine Critical Care Medicine; ADMIT Internal Medicine; ATTEND Internal Medicine
PROC: 5A09357 Assistance with Respiratory Ventilation, Less than 24 Consecutive Hours, Continuous Positive Airway Pressure (ICD-10-PCS; principal; 2019-12-29)
DX: A41.9 Sepsis, unspecified organism (principal); J96.21 Acute and chronic respiratory failure with hypoxia; J18.9 Pneumonia, unspecified organism; J96.22 Acute and chronic respiratory failure with hypercapnia; J44.1 Chronic obstructive pulmonary disease with (acute) exacerbation; F33.0 Major depressive disorder, recurrent, mild; F41.1 Generalized anxiety disorder; G40.409 Other generalized epilepsy and epileptic syndromes, not intractable, without status epilepticus; R62.7 Adult failure to thrive; E11.42 Type 2 diabetes mellitus with diabetic polyneuropathy; E11.43 Type 2 diabetes mellitus with diabetic autonomic (poly)neuropathy; K31.84 Gastroparesis; I25.10 Atherosclerotic heart disease of native coronary artery without angina pectoris; F17.210 Nicotine dependence, cigarettes, uncomplicated; K21.9 Gastro-esophageal reflux disease without esophagitis; E87.6 Hypokalemia; G89.29 Other chronic pain; M47.816 Spondylosis without myelopathy or radiculopathy, lumbar region; I11.9 Hypertensive heart disease without heart failure; F51.01 Primary insomnia; Z85.3 Personal history of malignant neoplasm of breast; Z88.8 Allergy status to other drugs, medicaments and biological substances; Z91.030 Bee allergy status; Z90.13 Acquired absence of bilateral breasts and nipples; Z90.49 Acquired absence of other specified parts of digestive tract; Z90.711 Acquired absence of uterus with remaining cervical stump; Z82.5 Family history of asthma and other chronic lower respiratory diseases; Z80.0 Family history of malignant neoplasm of digestive organs; Z71.6 Tobacco abuse counseling